=== PATIENT | female | born 1945 | race Caucasian/White ===

== ENCOUNTER 2017-11-25 20:23 | Inpatient (IN) | payer MEDICARE, MEDICAID ==
--- NOTE | 2017-11-25 20:55 | ED Physician Chart ---
ED Chief Complaint/HPI - Patient Information Date Seen:: 11/25/17 Time Seen:: 22:30 Chief Complaint:: Increased agitation History of Present Illness:: 72 yo female was brought from SNF to ER for increased agitation and aggressiveness towards nursing staff. Patient had intermittent cough in the ER ED Review of Systems - Review of Systems General/Constitutional: No fever Skin: No bruising Head: No headache Eyes: No loss of vision ENT: No nasal drainage Neck: No neck pain Cardio Vascular: No chest pain Pulmonary: No SOB GI: No nausea Musculoskeletal: No bone or joint pain Psychiatric: Prior psych history ED Past Medical History - Past Medical History Past Medical History: HTN, Asthma/COPD, Thyroid disorder, Dementia, Other (COPD , HYPERLIPIDEMIA, UTI, OSTEOARTHRITIS) Social History: Non Smoker, No Alcohol, No Drug Use Family Medical History - Family Member Mother History Unknown: Yes ED Physical Exam - Physical Examination General/Constitutional: Awake Head: Atraumatic Eyes: PERRL Skin: No ecchymosis ENMT: Nasal exam nl Neck: No nuchal rigidity Other Respiratory comments:: mild crackles Cardio Vascular: RRR, No murmur, gallop, rubs, NL S1 S2 GI: No tenderness/rebounding/guarding Extremities: normal strength in all extremities Neuro/Psych: No focal deficits ED Assessment - Assessment General Assessment: Psychosis Assessment/Comments:: CBC, CMP CXR, EKG (patient refused) DuoNeb (refused) Patient was cleared for genropsych admit ED Septic Shock - . Is Septic Shock (SBP<90, OR Lactate>4 mmol\L) present?: No ED Reassessment (Disposition) - Reassessment Reassessment Condition:: Unchanged - Patient Disposition Discharge/Transfer:: Acute Care w/in this hosp ED Discharge Plan - Patient Disposition Admit/Discharge/Transfer: Other Care w/in this hosp Condition at Disposition: Guarded
[2017-11-25 21:10] LABS: % EOSINOPHILS 0.9 % (0.0-5.0); % LYMPHOCYTES 8.2 % (20.0-50.0); % MONOCYTES 10.8 % (2.0-10.0); % NEUTROPHILS 80.1 % (40.0-80.0); EOSINOPHILE ABSOLUTE 0.1 Th/cmm (0.1-0.4); HEMATOCRIT 36.4 % (41.0-60); HEMOGLOBIN 12.2 gm/dL (12-16); LYMPHOCYTE ABSOLUTE 0.7 Th/cmm (1.5-3.0); MEAN CELL VOLUME 86.2 fl (81-100); MEAN CORPUSCULAR HEMOGLOBIN 28.8 pg (27.0-31.0); MEAN CORPUSCULAR HGB CONC 33.4 pg (28.0-36.0); NEUTROPHILE ABSOLUTE 7.3 Th/cmm (1.8-8.0); PLATELET COUNT 220 Th/cmm (150-400); RED BLOOD COUNT 4.23 Mil/cmm (3.80-5.20); RED CELL DISTRIBUTION WIDTH 14.9 % (11.5-20.0); WHITE BLOOD COUNT 9.1 Th/cmm (4.8-10.8)
[2017-11-25 21:26] LABS: ALB/GLOB RATIO 1.4 (1.0-1.8); ALBUMIN 3.6 gm/dL (3.7-5.3); ALKALINE PHOSPHATASE 56 U/L (34-104); ANION GAP 7.1 (7.0-16.0); BILIRUBIN,TOTAL 0.2 mg/dL (0.3-1.0); BUN - UREA NITROGEN 27 mg/dL (7-25); CALCIUM SERUM 9.1 mg/dL (8.6-10.3); CARBON DIOXIDE 34.2 mEq/L (21.0-31.0); CHLORIDE 99 mEq/L (98-107); GLUCOSE 112 mg/dL (70-105); POTASSIUM SERUM 4.3 mEq/L (3.5-5.1); SGOT 13 U/L (13-39); SGPT/ALT 7 U/L (7-52); SODIUM SERUM 136 mEq/L (136-145); TOTAL PROTEIN,SERUM 6.1 gm/dL (6.0-8.3)
[2017-11-25] MEDS ORDERED: Albuterol/Ipratropium Neb 3 ML AERS HHN ONE (22:31)
[2017-11-25] MEDS ORDERED: Haloperidol Lactate 5 mg/mL 1mL Vial IM STA (23:05)
[2017-11-25] MEDS ORDERED: Haloperidol Lactate 5 mg/mL 1mL Vial ONE (23:08)
[2017-11-26 01:39] VITALS: BP 133/71
[2017-11-26] MEDS ORDERED: Maalox 30 mL Cup PO PRN (01:39)
[2017-11-26] MEDS ORDERED: Magnesium Hydroxide (MOM) 30 mL UDC PO PRN (01:39)
[2017-11-26] MEDS ORDERED: Hydrocodone/APAP 5mg/325mg Tab PO PRN (01:56)
[2017-11-26] MEDS: Levothyroxine 0.05 Mg Tab PO SCH (06:39)
[2017-11-26] MEDS ORDERED: Non-Formulary Item 1 EA (Cranberry Fruit Concentrate [Cranberry] 450 MG) PO SCH (09:00)
[2017-11-26] MEDS: Dextromethorphan/Quinidine 20mg/10mg Cap PO SCH ×2 (10:00→17:58)
[2017-11-26] MEDS: Multivitamin w/ Minerals Tab PO SCH (10:00)
[2017-11-26] MEDS: Lactobacillus Rhamnosus GG 15 Billion CFU CAP.SPRINK PO SCH ×2 (10:00→17:57)
--- NOTE | 2017-11-26 10:28 | Psychosocial Evaluation ---
DATE OF SERVICE: 11/26/2017 IDENTIFYING DATA: The patient is a 72-year-old woman, resident of [facility]. Information obtained by directly interviewing the patient as well as reviewing the admission papers and they are reliable. JUSTIFICATION FOR HOSPITALIZATION: The patient is admitted here on a voluntary basis in view of her acute psychosis and agitation. CHIEF COMPLAINT: "I don't care." HISTORY OF PRESENT ILLNESS: This is one of multiple psychiatric hospitalizations for this patient who is being followed up by Dr. Little on an outpatient basis at [facility]. The patient has been on mirtazapine, Risperdal, and valproic acid. However, the patient is reported to have been very disruptive, striking out and cursing people and could not be contained at a lower level of care. The patient has been brought over here for stabilization, tried to interview the patient, but the patient is very angry, irritable, and cursing out. PAST PSYCHIATRIC HISTORY: Details are not known, but the patient is reported to have been hospitalized. MEDICAL HISTORY: Physical examination is requested and done by Dr. Walls. SUBSTANCE ABUSE HISTORY: None. PHYSICAL OR SEXUAL ABUSE HISTORY: None. LEGAL PROBLEMS: None at this time. STRENGTH AND ASSETS: The patient is motivated. MENTAL STATUS EXAMINATION: The patient is a 72-year-old woman, thin built, superficially cooperative. Eye contact is poor. Mood is irritable. Affect is constricted. The patient is cursing out at this time. Insight and judgment at this time are noted very much impaired. Impulse control is noted to be poor. The patient's short and long-term memory is poor. The patient, however, is fully aware that she is in the hospital. The patient's behavior is a clear danger to self and others. DIAGNOSTIC IMPRESSION: AXIS I: Schizoaffective disorder. AXIS II: None. AXIS III: None. IMMEDIATE TREATMENT PLAN: The patient is going to be observed on the inpatient unit, provided with supportive psychotherapy. The patient is going to be closely monitored. Encouraged to participate in groups and verbalize the concerns. When stabilized, the patient is going to be discharged to [facility], to be followed up on an outpatient basis. ESTIMATED LENGTH OF STAY: 5 to 7 days. DISCHARGE CRITERIA: When patient is no longer a threat to self or others and be able to cope up with stress. [facility]# [id number]
--- NOTE | 2017-11-26 14:59 | Internal Medicine Prog Note ---
Internal Medicine Subjective - Subjective Service Date: 11/26/17 ([id number] [facility]) Internal Medicine Objective - Results Result Diagrams: 11/25/17 21:03 11/25/17 21:03 Recent Labs: Laboratory Last Values WBC 9.1 Th/cmm (4.8-10.8) 11/25/17 21:03 RBC 4.23 Mil/cmm (3.80-5.20) 11/25/17 21:03 Hgb 12.2 gm/dL (12-16) 11/25/17 21:03 Hct 36.4 % (41.0-60) L 11/25/17 21:03 MCV 86.2 fl (81-100) 11/25/17 21:03 MCH 28.8 pg (27.0-31.0) 11/25/17 21:03 MCHC Differential 33.4 pg (28.0-36.0) 11/25/17 21:03 RDW 14.9 % (11.5-20.0) 11/25/17 21:03 Plt Count 220 Th/cmm (150-400) 11/25/17 21:03 MPV 8.0 fl 11/25/17 21:03 Neutrophils % 80.1 % (40.0-80.0) H 11/25/17 21:03 Lymphocytes % 8.2 % (20.0-50.0) L 11/25/17 21:03 Monocytes % 10.8 % (2.0-10.0) H 11/25/17 21:03 Eosinophils % 0.9 % (0.0-5.0) 11/25/17 21:03 Basophils % 0.0 % (0.0-2.0) 11/25/17 21:03 Sodium 136 mEq/L (136-145) 11/25/17 21:03 Potassium 4.3 mEq/L (3.5-5.1) 11/25/17 21:03 Chloride 99 mEq/L (98-107) 11/25/17 21:03 Carbon Dioxide 34.2 mEq/L (21.0-31.0) H 11/25/17 21:03 Anion Gap 7.1 (7.0-16.0) 11/25/17 21:03 BUN 27 mg/dL (7-25) H 11/25/17 21:03 Creatinine 1.0 mg/dL (0.6-1.2) 11/25/17 21:03 Est GFR ( Amer) TNP 11/25/17 21:03 Est GFR (Non-Af Amer) TNP 11/25/17 21:03 BUN/Creatinine Ratio 27.0 11/25/17 21:03 Glucose 112 mg/dL (70-105) H 11/25/17 21:03 Calcium 9.1 mg/dL (8.6-10.3) 11/25/17 21:03 Total Bilirubin 0.2 mg/dL (0.3-1.0) L 11/25/17 21:03 AST 13 U/L (13-39) 11/25/17 21:03 ALT 7 U/L (7-52) 11/25/17 21:03 Alkaline Phosphatase 56 U/L (34-104) 11/25/17 21:03 Total Protein 6.1 gm/dL (6.0-8.3) 11/25/17 21:03 Albumin 3.6 gm/dL (3.7-5.3) L 11/25/17 21:03 Globulin 2.5 gm/dL 11/25/17 21:03 Albumin/Globulin Ratio 1.4 (1.0-1.8) 11/25/17 21:03 - Physical Exam Vitals and I&O: Vital Signs Temp 98.4 F 11/26/17 01:38 Pulse 87 11/26/17 01:38 Resp 18 11/26/17 01:38 BP 133/71 11/26/17 01:39 Pulse Ox 98 11/26/17 01:05 Intake & Output 11/25/17 11/26/17 11/26/17 18:59 06:59 18:59 Other: # Voids 2 Stool Characteristics Soft Active Medications: Current Medications Acetaminophen (Tylenol) 650 mg PO Q6H PRN PRN Reason: Mild Pain/Headache/T above 101 Stop: 01/25/18 01:38 Acetaminophen/Hydrocodone Bitart ([place] 5mg/325mg) 1 tab PO Q6H PRN PRN Reason: Pain (Moderate) Stop: 01/25/18 01:55 Al Hydrox/Mg Hydrox/Simethicone (Maalox) 30 ml PO Q6H PRN PRN Reason: Dyspepsia Stop: 01/25/18 01:38 Dextromethorphan/Quinidine (Nuedexta 20mg-10mg) 1 cap PO BID [facility] Stop: 01/25/18 08:59 Last Admin: 11/26/17 10:00 Dose: Not Given Divalproex Sodium (Depakote Dr) 250 mg PO BID [facility] PRN Reason: Protocol Stop: 01/25/18 08:59 Last Admin: 11/26/17 10:00 Dose: Not Given Lactobacillus Rhamnosus (Culturelle 15b) 1 each PO BID [facility] Stop: 01/25/18 08:59 Last Admin: 11/26/17 10:00 Dose: Not Given Levothyroxine Sodium (Synthroid) 0.05 mg PO QDAC [facility] Stop: 01/25/18 07:29 Last Admin: 11/26/17 06:39 Dose: Not Given Lorazepam (Ativan) 1 mg PO Q6H PRN; Protocol PRN Reason: Anxiety/Agitation Stop: 01/25/18 01:38 Losartan Potassium (Cozaar) 50 mg PO DAILY [facility] Stop: 01/25/18 08:59 Last Admin: 11/26/17 10:00 Dose: Not Given Magnesium Hydroxide (Milk Of Magnesia) 30 ml PO HS PRN PRN Reason: Constipation Stop: 01/25/18 01:38 Mirtazapine (Remeron) 15 mg PO HS [facility] Stop: 01/25/18 02:59 Last Admin: 11/26/17 03:30 Dose: Not Given Risperidone (Risperdal) 1 mg PO DAILY JESS PRN Reason: Protocol Stop: 01/25/18 08:59 Last Admin: 11/26/17 10:00 Dose: Not Given Zolpidem Tartrate (Ambien) 5 mg PO HS PRN PRN Reason: Insomnia Stop: 01/25/18 01:38 - Procedures Procedures: Procedures Procedure Code Date OTHER GROUP THERAPY 94.44 11/06/10
--- NOTE | 2017-11-26 18:26 | History & Physical ---
ADMIT DATE: 11/26/2017 DICTATED FOR: Dr. Cornelius Walls CHIEF COMPLAINT: Agitation, depression. HISTORY OF PRESENT ILLNESS: This is a 72-year-old female who is a [facility] resident who is brought here to [place], who was admitted to the Geropsych Unit for agitation towards staff. PAST MEDICAL HISTORY: UTI, psychosis, hypothyroid, hypertension. PAST SURGICAL HISTORY: Unknown. ALLERGIES: Chlorpromazine and penicillins. SOCIAL HISTORY: The patient is a [facility] resident, requiring 24-hour nursing care. FAMILY HISTORY: Noncontributory. REVIEW OF SYSTEMS: Unable to obtain, the patient is confused. PHYSICAL EXAMINATION: GENERAL: The patient is well developed, well nourished, no acute distress. VITAL SIGNS: Temperature 99.4, heart rate 87, blood pressure 133/71, respiration 18, O2 98%. HEENT: Head; normocephalic, atraumatic. NECK: Supple. No mass. LUNGS: Clear bilaterally. ABDOMEN: Soft, nontender. LABORATORY DATA: WBC 9.1, H and H 12.2 and 36.4, platelet of 220. Sodium 136, potassium 4.3, chloride 99, BUN 27, creatinine 1.0. ASSESSMENT: Hypertension, hypothyroidism, psychosis. PLAN: Continue patient's current medications from the [facility]. We will adjust the patient's blood pressure medications as needed. We will continue to follow this patient. JOB# [id number]
[2017-11-27] MEDS: Levothyroxine 0.05 Mg Tab PO SCH (07:00)
[2017-11-27] MEDS: Lactobacillus Rhamnosus GG 15 Billion CFU CAP.SPRINK PO SCH ×2 (11:50→17:03)
[2017-11-27] MEDS: Dextromethorphan/Quinidine 20mg/10mg Cap PO SCH ×2 (11:50→17:03)
[2017-11-27] MEDS: Multivitamin w/ Minerals Tab PO SCH (11:53)
--- NOTE | 2017-11-27 12:15 | Internal Medicine Prog Note ---
Internal Medicine Subjective - Subjective Service Date: 11/27/17 Internal Medicine Objective - Results Result Diagrams: 11/25/17 21:03 11/25/17 21:03 Recent Labs: Laboratory Last Values WBC 9.1 Th/cmm (4.8-10.8) 11/25/17 21:03 RBC 4.23 Mil/cmm (3.80-5.20) 11/25/17 21:03 Hgb 12.2 gm/dL (12-16) 11/25/17 21:03 Hct 36.4 % (41.0-60) L 11/25/17 21:03 MCV 86.2 fl (81-100) 11/25/17 21:03 MCH 28.8 pg (27.0-31.0) 11/25/17 21:03 MCHC Differential 33.4 pg (28.0-36.0) 11/25/17 21:03 RDW 14.9 % (11.5-20.0) 11/25/17 21:03 Plt Count 220 Th/cmm (150-400) 11/25/17 21:03 MPV 8.0 fl 11/25/17 21:03 Neutrophils % 80.1 % (40.0-80.0) H 11/25/17 21:03 Lymphocytes % 8.2 % (20.0-50.0) L 11/25/17 21:03 Monocytes % 10.8 % (2.0-10.0) H 11/25/17 21:03 Eosinophils % 0.9 % (0.0-5.0) 11/25/17 21:03 Basophils % 0.0 % (0.0-2.0) 11/25/17 21:03 Sodium 136 mEq/L (136-145) 11/25/17 21:03 Potassium 4.3 mEq/L (3.5-5.1) 11/25/17 21:03 Chloride 99 mEq/L (98-107) 11/25/17 21:03 Carbon Dioxide 34.2 mEq/L (21.0-31.0) H 11/25/17 21:03 Anion Gap 7.1 (7.0-16.0) 11/25/17 21:03 BUN 27 mg/dL (7-25) H 11/25/17 21:03 Creatinine 1.0 mg/dL (0.6-1.2) 11/25/17 21:03 Est GFR ( Amer) TNP 11/25/17 21:03 Est GFR (Non-Af Amer) TNP 11/25/17 21:03 BUN/Creatinine Ratio 27.0 11/25/17 21:03 Glucose 112 mg/dL (70-105) H 11/25/17 21:03 Calcium 9.1 mg/dL (8.6-10.3) 11/25/17 21:03 Total Bilirubin 0.2 mg/dL (0.3-1.0) L 11/25/17 21:03 AST 13 U/L (13-39) 11/25/17 21:03 ALT 7 U/L (7-52) 11/25/17 21:03 Alkaline Phosphatase 56 U/L (34-104) 11/25/17 21:03 Total Protein 6.1 gm/dL (6.0-8.3) 11/25/17 21:03 Albumin 3.6 gm/dL (3.7-5.3) L 11/25/17 21:03 Globulin 2.5 gm/dL 11/25/17 21:03 Albumin/Globulin Ratio 1.4 (1.0-1.8) 11/25/17 21:03 - Physical Exam Vitals and I&O: Vital Signs Temp 99.0 F 11/26/17 15:02 Pulse 81 11/26/17 15:02 Resp 20 11/26/17 15:02 BP 144/83 11/26/17 15:02 Pulse Ox 95 11/26/17 15:02 Intake & Output 11/26/17 11/27/17 11/27/17 18:59 06:59 18:59 Intake Total 480 120 Balance 480 120 Intake: Oral 480 120 Other: # Voids 2 3 Stool Characteristics Soft Active Medications: Current Medications Acetaminophen (Tylenol) 650 mg PO Q6H PRN PRN Reason: Mild Pain/Headache/T above 101 Stop: 01/25/18 01:38 Acetaminophen/Hydrocodone Bitart ([place] 5mg/325mg) 1 tab PO Q6H PRN PRN Reason: Pain (Moderate) Stop: 01/25/18 01:55 Al Hydrox/Mg Hydrox/Simethicone (Maalox) 30 ml PO Q6H PRN PRN Reason: Dyspepsia Stop: 01/25/18 01:38 Dextromethorphan/Quinidine (Nuedexta 20mg-10mg) 1 cap PO BID [facility] Stop: 01/25/18 08:59 Last Admin: 11/27/17 11:50 Dose: Not Given Divalproex Sodium (Depakote Dr) 250 mg PO BID [facility] PRN Reason: Protocol Stop: 01/25/18 08:59 Last Admin: 11/27/17 11:50 Dose: Not Given Lactobacillus Rhamnosus (Culturelle 15b) 1 each PO BID [facility] Stop: 01/25/18 08:59 Last Admin: 11/27/17 11:50 Dose: Not Given Levothyroxine Sodium (Synthroid) 0.05 mg PO QDAC [facility] Stop: 01/25/18 07:29 Last Admin: 11/27/17 07:00 Dose: 0.05 mg Lorazepam (Ativan) 1 mg PO Q6H PRN; Protocol PRN Reason: Anxiety/Agitation Stop: 01/25/18 01:38 Losartan Potassium (Cozaar) 50 mg PO DAILY [facility] Stop: 01/25/18 08:59 Last Admin: 11/27/17 11:56 Dose: Not Given Magnesium Hydroxide (Milk Of Magnesia) 30 ml PO HS PRN PRN Reason: Constipation Stop: 01/25/18 01:38 Mirtazapine (Remeron) 15 mg PO HS [facility] Stop: 01/25/18 02:59 Last Admin: 11/26/17 21:28 Dose: 15 mg Risperidone (Risperdal) 1 mg PO DAILY [facility] PRN Reason: Protocol Stop: 01/25/18 08:59 Last Admin: 11/27/17 11:53 Dose: Not Given Zolpidem Tartrate (Ambien) 5 mg PO HS PRN PRN Reason: Insomnia Stop: 01/25/18 01:38 - Procedures Procedures: Procedures Procedure Code Date OTHER GROUP THERAPY 94.44 11/06/10 Internal Medicine Assmt/Plan - Assessment Assessment: htn hypothyroidism psychosis - Plan Plan: monitor bp , will adjust bp meds accordingly as needed fall precautions continue current orders
--- NOTE | 2017-11-27 21:40 | Progress Notes ---
DATE: 11/27/2017 SUBJECTIVE: Staff was spoken to. The patient is interviewed. Mood is noted to be irritable. Affect is constricted. The patient's insight and judgment are noted to be still impaired. Impulse control is noted to be poor. The patient is very agitated and sarcastic. The patient has no insight into her illness. The patient is currently on valproic acid 250 mg twice a day and Risperdal 1 mg daily. The patient has been able to tolerate the medication. ASSESSMENT: The patient is still impulsive. PLAN: To continue the patient with the supportive therapy, I encouraged the patient to verbalize the concerns rather than to act out. Please note that the patient is not ready to be discharged to a lower level of care yet. JOB# [id number]
[2017-11-28] MEDS: Levothyroxine 0.05 Mg Tab PO SCH (06:32)
[2017-11-28] MEDS: Lactobacillus Rhamnosus GG 15 Billion CFU CAP.SPRINK PO SCH ×2 (11:52→17:26)
[2017-11-28] MEDS: Multivitamin w/ Minerals Tab PO SCH (11:53)
[2017-11-28] MEDS: Dextromethorphan/Quinidine 20mg/10mg Cap PO SCH ×2 (12:30→17:26)
--- NOTE | 2017-11-28 15:03 | Internal Medicine Prog Note ---
Internal Medicine Subjective - Subjective Patient seen and examined:: with staff, chart reviewed Patient is:: awake, verbal, non-interactive Per staff patient has:: no adverse event, no episodes of fall, poor appetite, noncompliant, tolerating meds Internal Medicine Objective - Results Result Diagrams: 11/25/17 21:03 11/25/17 21:03 Recent Labs: Laboratory Last Values WBC 9.1 Th/cmm (4.8-10.8) 11/25/17 21:03 RBC 4.23 Mil/cmm (3.80-5.20) 11/25/17 21:03 Hgb 12.2 gm/dL (12-16) 11/25/17 21:03 Hct 36.4 % (41.0-60) L 11/25/17 21:03 MCV 86.2 fl (81-100) 11/25/17 21:03 MCH 28.8 pg (27.0-31.0) 11/25/17 21:03 MCHC Differential 33.4 pg (28.0-36.0) 11/25/17 21:03 RDW 14.9 % (11.5-20.0) 11/25/17 21:03 Plt Count 220 Th/cmm (150-400) 11/25/17 21:03 MPV 8.0 fl 11/25/17 21:03 Neutrophils % 80.1 % (40.0-80.0) H 11/25/17 21:03 Lymphocytes % 8.2 % (20.0-50.0) L 11/25/17 21: Monocytes % 10.8 % (2.0-10.0) H 11/25/17 21:03 Eosinophils % 0.9 % (0.0-5.0) 11/25/17 21:03 Basophils % 0.0 % (0.0-2.0) 11/25/17 21:03 Sodium 136 mEq/L (136-145) 11/25/17 21:03 Potassium 4.3 mEq/L (3.5-5.1) 11/25/17 21:03 Chloride 99 mEq/L (98-107) 11/25/17 21:03 Carbon Dioxide 34.2 mEq/L (21.0-31.0) H 11/25/17 21:03 Anion Gap 7.1 (7.0-16.0) 11/25/17 21:03 BUN 27 mg/dL (7-25) H 11/25/17 21:03 Creatinine 1.0 mg/dL (0.6-1.2) 11/25/17 21:03 Est GFR ( Amer) TNP 11/25/17 21:03 Est GFR (Non-Af Amer) TNP 11/25/17 21:03 BUN/Creatinine Ratio 27.0 11/25/17 21:03 Glucose 112 mg/dL (70-105) H 11/25/17 21:03 Calcium 9.1 mg/dL (8.6-10.3) 11/25/17 21:03 Total Bilirubin 0.2 mg/dL (0.3-1.0) L 11/25/17 21:03 AST 13 U/L (13-39) 11/25/17 21:03 ALT 7 U/L (7-52) 11/25/17 21:03 Alkaline Phosphatase 56 U/L (34-104) 11/25/17 21:03 Total Protein 6.1 gm/dL (6.0-8.3) 11/25/17 21:03 Albumin 3.6 gm/dL (3.7-5.3) L 11/25/17 21:03 Globulin 2.5 gm/dL 11/25/17 21:03 Albumin/Globulin Ratio 1.4 (1.0-1.8) 11/25/17 21:03 - Physical Exam Vitals and I&O: Vital Signs Temp 97.2 F 11/27/17 14:00 Pulse 68 11/28/17 11:54 Resp 20 11/27/17 14:00 BP 118/62 11/28/17 11:54 Pulse Ox 97 11/27/17 14:00 Intake & Output 11/27/17 11/28/17 11/28/17 18:59 06:59 18:59 Intake Total 480 Balance 480 Intake: Oral 480 Other: # Voids 3 Active Medications: Current Medications Acetaminophen (Tylenol) 650 mg PO Q6H PRN PRN Reason: Mild Pain/Headache/T above 101 Stop: 01/25/18 01:38 Acetaminophen/Hydrocodone Bitart ([place] 5mg/325mg) 1 tab PO Q6H PRN PRN Reason: Pain (Moderate) Stop: 01/25/18 01:55 Al Hydrox/Mg Hydrox/Simethicone (Maalox) 30 ml PO Q6H PRN PRN Reason: Dyspepsia Stop: 01/25/18 01:38 Dextromethorphan/Quinidine (Nuedexta 20mg-10mg) 1 cap PO BID [facility] Stop: 01/25/18 08:59 Last Admin: 11/27/17 17:03 Dose: Not Given Divalproex Sodium (Depakote Dr) 250 mg PO BID [facility] PRN Reason: Protocol Stop: 01/25/18 08:59 Last Admin: 11/28/17 11:54 Dose: Not Given Lactobacillus Rhamnosus (Culturelle 15b) 1 each PO BID [facility] Stop: 01/25/18 08:59 Last Admin: 11/28/17 11:52 Dose: Not Given Levothyroxine Sodium (Synthroid) 0.05 mg PO QDAC [facility] Stop: 01/25/18 07:29 Last Admin: 11/28/17 06:32 Dose: Not Given Lorazepam (Ativan) 1 mg PO Q6H PRN; Protocol PRN Reason: Anxiety/Agitation Stop: 01/25/18 01:38 Losartan Potassium (Cozaar) 50 mg PO DAILY [facility] Stop: 01/25/18 08:59 Last Admin: 11/28/17 11:54 Dose: Not Given Magnesium Hydroxide (Milk Of Magnesia) 30 ml PO HS PRN PRN Reason: Constipation Stop: 01/25/18 01:38 Mirtazapine (Remeron) 15 mg PO HS [facility] Stop: 01/25/18 02:59 Last Admin: 11/27/17 20:35 Dose: Not Given Risperidone (Risperdal) 1 mg PO DAILY [facility] PRN Reason: Protocol Stop: 01/25/18 08:59 Last Admin: 11/27/17 11:53 Dose: Not Given Zolpidem Tartrate (Ambien) 5 mg PO HS PRN PRN Reason: Insomnia Stop: 01/25/18 01:38 General: demented HEENT: NC/AT, PERRLA, EOMI Neck: Supple, No JVD, No LAD Lungs: CTAB Cardiovascular: RRR, Normal S1, Normal S2 Abdomen: soft, non-tender, thin Extremities: excoriation - Procedures Procedures: Procedures Procedure Code Date OTHER GROUP THERAPY 94.44 11/06/10 Internal Medicine Assmt/Plan - Assessment Assessment: - Assessment Assessment: htn hypothyroidism psychosis - Plan Plan: monitor bp , will adjust bp meds accordingly as needed fall precautions continue current orders - Plan Plan: cpm labs noted
--- NOTE | 2017-11-28 15:54 | Progress Notes ---
DATE: 11/28/2017 SUBJECTIVE: Staff was spoken to. The patient is interviewed. Mood is noted to be irritable. Affect is constricted. The patient is still having mood swings. Insight and judgment are very much impaired. Impulse control is noted to be poor. The patient is currently on Depakote and Risperdal and is able to tolerate the medications. No side effects to the medications are noted. ASSESSMENT: The patient is still impulsive. PLAN: To continue the patient with the current medications. I encouraged the patient to verbalize the concerns rather than to act out. JOB# [id number]
[2017-11-29] MEDS: Levothyroxine 0.05 Mg Tab PO SCH (06:44)
[2017-11-29] MEDS: Dextromethorphan/Quinidine 20mg/10mg Cap PO SCH ×2 (09:02→17:27)
[2017-11-29] MEDS: Multivitamin w/ Minerals Tab PO SCH ×2 (09:02→09:06)
[2017-11-29] MEDS: Lactobacillus Rhamnosus GG 15 Billion CFU CAP.SPRINK PO SCH ×3 (09:02→17:27)
--- NOTE | 2017-11-29 15:03 | Internal Medicine Prog Note ---
Internal Medicine Subjective - Subjective Patient seen and examined:: with staff, chart reviewed Patient is:: awake, verbal, non-interactive Per staff patient has:: no adverse event, no episodes of fall, poor appetite, noncompliant, tolerating meds Internal Medicine Objective - Results Result Diagrams: 11/25/17 21:03 11/25/17 21:03 Recent Labs: Laboratory Last Values WBC 9.1 Th/cmm (4.8-10.8) 11/25/17 21:03 RBC 4.23 Mil/cmm (3.80-5.20) 11/25/17 21:03 Hgb 12.2 gm/dL (12-16) 11/25/17 21:03 Hct 36.4 % (41.0-60) L 11/25/17 21:03 MCV 86.2 fl (81-100) 11/25/17 21:03 MCH 28.8 pg (27.0-31.0) 11/25/17 21:03 MCHC Differential 33.4 pg (28.0-36.0) 11/25/17 21:03 RDW 14.9 % (11.5-20.0) 11/25/17 21:03 Plt Count 220 Th/cmm (150-400) 11/25/17 21:03 MPV 8.0 fl 11/25/17 21:03 Neutrophils % 80.1 % (40.0-80.0) H 11/25/17 21:03 Lymphocytes % 8.2 % (20.0-50.0) L 11/25/17 21: Monocytes % 10.8 % (2.0-10.0) H 11/25/17 21:03 Eosinophils % 0.9 % (0.0-5.0) 11/25/17 21:03 Basophils % 0.0 % (0.0-2.0) 11/25/17 21:03 Sodium 136 mEq/L (136-145) 11/25/17 21:03 Potassium 4.3 mEq/L (3.5-5.1) 11/25/17 21:03 Chloride 99 mEq/L (98-107) 11/25/17 21:03 Carbon Dioxide 34.2 mEq/L (21.0-31.0) H 11/25/17 21:03 Anion Gap 7.1 (7.0-16.0) 11/25/17 21:03 BUN 27 mg/dL (7-25) H 11/25/17 21:03 Creatinine 1.0 mg/dL (0.6-1.2) 11/25/17 21:03 Est GFR ( Amer) TNP 11/25/17 21:03 Est GFR (Non-Af Amer) TNP 11/25/17 21:03 BUN/Creatinine Ratio 27.0 11/25/17 21:03 Glucose 112 mg/dL (70-105) H 11/25/17 21:03 Calcium 9.1 mg/dL (8.6-10.3) 11/25/17 21:03 Total Bilirubin 0.2 mg/dL (0.3-1.0) L 11/25/17 21:03 AST 13 U/L (13-39) 11/25/17 21:03 ALT 7 U/L (7-52) 11/25/17 21:03 Alkaline Phosphatase 56 U/L (34-104) 11/25/17 21:03 Total Protein 6.1 gm/dL (6.0-8.3) 11/25/17 21:03 Albumin 3.6 gm/dL (3.7-5.3) L 11/25/17 21:03 Globulin 2.5 gm/dL 11/25/17 21:03 Albumin/Globulin Ratio 1.4 (1.0-1.8) 11/25/17 21:03 - Physical Exam Vitals and I&O: Vital Signs Temp 97.2 F 11/27/17 14:00 Pulse 68 11/28/17 11:54 Resp 20 11/27/17 14:00 BP 118/62 11/28/17 11:54 Pulse Ox 97 11/27/17 14:00 Intake & Output 11/28/17 11/29/17 11/29/17 18:59 06:59 18:59 Intake Total 1800 120 Balance 1800 120 Intake: Oral 1800 120 Other: # Voids 4 3 # Bowel Movements 0 Stool Characteristics Soft Formed Brown Active Medications: Current Medications Acetaminophen (Tylenol) 650 mg PO Q6H PRN PRN Reason: Mild Pain/Headache/T above 101 Stop: 01/25/18 01:38 Acetaminophen/Hydrocodone Bitart ([place] 5mg/325mg) 1 tab PO Q6H PRN PRN Reason: Pain (Moderate) Stop: 01/25/18 01:55 Al Hydrox/Mg Hydrox/Simethicone (Maalox) 30 ml PO Q6H PRN PRN Reason: Dyspepsia Stop: 01/25/18 01:38 Dextromethorphan/Quinidine (Nuedexta 20mg-10mg) 1 cap PO BID [facility] Stop: 01/25/18 08:59 Last Admin: 11/29/17 09:02 Dose: 1 cap Divalproex Sodium (Depakote Dr) 250 mg PO BID [facility] PRN Reason: Protocol Stop: 01/25/18 08:59 Last Admin: 11/29/17 09:02 Dose: 250 mg Lactobacillus Rhamnosus (Culturelle 15b) 1 each PO BID [facility] Stop: 01/25/18 08:59 Last Admin: 11/29/17 09:06 Dose: Not Given Levothyroxine Sodium (Synthroid) 0.05 mg PO QDAC JESS Stop: 01/25/18 07:29 Last Admin: 11/29/17 06:44 Dose: Not Given Lorazepam (Ativan) 1 mg PO Q6H PRN; Protocol PRN Reason: Anxiety/Agitation Stop: 01/25/18 01:38 Last Admin: 11/28/17 12:30 Dose: 1 mg Losartan Potassium (Cozaar) 50 mg PO DAILY [facility] Stop: 01/25/18 08:59 Last Admin: 11/29/17 09:06 Dose: Not Given Magnesium Hydroxide (Milk Of Magnesia) 30 ml PO HS PRN PRN Reason: Constipation Stop: 01/25/18 01:38 Mirtazapine (Remeron) 15 mg PO HS JESS Stop: 01/25/18 02:59 Last Admin: 11/28/17 20:45 Dose: Not Given Risperidone (Risperdal) 1 mg PO BID JESS PRN Reason: Protocol Stop: 01/28/18 16:59 Zolpidem Tartrate (Ambien) 5 mg PO HS PRN PRN Reason: Insomnia Stop: 01/25/18 01:38 General: demented HEENT: NC/AT, PERRLA, EOMI Neck: Supple, No JVD, No LAD Lungs: CTAB Cardiovascular: RRR, Normal S1, Normal S2 Abdomen: soft, non-tender, thin Extremities: excoriation - Procedures Procedures: Procedures Procedure Code Date OTHER GROUP THERAPY 94.44 11/06/10 Internal Medicine Assmt/Plan - Assessment Assessment: - Assessment Assessment: htn hypothyroidism psychosis - Plan Plan: monitor bp , will adjust bp meds accordingly as needed fall precautions continue current orders - Plan Plan: cpm labs noted
--- NOTE | 2017-11-29 23:08 | Progress Notes ---
DATE: 11/29/2017 SUBJECTIVE: Staff was spoken to. The patient is interviewed. Mood is noted to be irritable. Affect is constricted. Coping skills are noted to be still poor. No side effects to the medications are noted. The patient has been having difficult time to cope with the stress, continues to be very irritable and angry and paranoid. No side effects to the medications are noted at this time. The patient has been having difficult time to cope with the stress. ASSESSMENT: The patient is still psychotic. PLAN: To continue the patient with supportive therapy and I encouraged the patient to verbalize the concerns rather than to act out. PSYCHIATRIC# [id number]
[2017-11-30] MEDS: Levothyroxine 0.05 Mg Tab PO SCH (06:40)
[2017-11-30] MEDS: Lactobacillus Rhamnosus GG 15 Billion CFU CAP.SPRINK PO SCH ×3 (10:56→17:13)
[2017-11-30] MEDS: Dextromethorphan/Quinidine 20mg/10mg Cap PO SCH ×2 (10:56→16:53)
[2017-11-30] MEDS: Multivitamin w/ Minerals Tab PO SCH (10:57)
--- NOTE | 2017-11-30 13:25 | Progress Notes ---
DATE: 11/30/2017 SUBJECTIVE: Staff was spoken to. The patient is interviewed. Mood is noted to be irritable. Affect is constricted. Insight and judgment at this time are noted to be still impaired. Mood swings are still a problem. No side effects to medications are noted. The patient has been able to tolerate the Risperdal, which was increased to 1 mg twice a day. The patient is continued on the mirtazapine and valproic. ASSESSMENT: The patient is still impulsive and mood swings are a problem. PLAN: To continue the patient with the supportive therapy and followup. JOB# [id number]
--- NOTE | 2017-11-30 15:02 | Internal Medicine Prog Note ---
Internal Medicine Subjective - Subjective Patient seen and examined:: with staff, chart reviewed Patient is:: awake, verbal, non-interactive Per staff patient has:: no adverse event, no episodes of fall, poor appetite, noncompliant, tolerating meds Internal Medicine Objective - Results Result Diagrams: 11/25/17 21:03 11/25/17 21:03 Recent Labs: Laboratory Last Values WBC 9.1 Th/cmm (4.8-10.8) 11/25/17 21:03 RBC 4.23 Mil/cmm (3.80-5.20) 11/25/17 21:03 Hgb 12.2 gm/dL (12-16) 11/25/17 21:03 Hct 36.4 % (41.0-60) L 11/25/17 21:03 MCV 86.2 fl (81-100) 11/25/17 21:03 MCH 28.8 pg (27.0-31.0) 11/25/17 21:03 MCHC Differential 33.4 pg (28.0-36.0) 11/25/17 21:03 RDW 14.9 % (11.5-20.0) 11/25/17 21:03 Plt Count 220 Th/cmm (150-400) 11/25/17 21:03 MPV 8.0 fl 11/25/17 21:03 Neutrophils % 80.1 % (40.0-80.0) H 11/25/17 21:03 Lymphocytes % 8.2 % (20.0-50.0) L 11/25/17 21: Monocytes % 10.8 % (2.0-10.0) H 11/25/17 21:03 Eosinophils % 0.9 % (0.0-5.0) 11/25/17 21:03 Basophils % 0.0 % (0.0-2.0) 11/25/17 21:03 Sodium 136 mEq/L (136-145) 11/25/17 21:03 Potassium 4.3 mEq/L (3.5-5.1) 11/25/17 21:03 Chloride 99 mEq/L (98-107) 11/25/17 21:03 Carbon Dioxide 34.2 mEq/L (21.0-31.0) H 11/25/17 21:03 Anion Gap 7.1 (7.0-16.0) 11/25/17 21:03 BUN 27 mg/dL (7-25) H 11/25/17 21:03 Creatinine 1.0 mg/dL (0.6-1.2) 11/25/17 21:03 Est GFR ( Amer) TNP 11/25/17 21:03 Est GFR (Non-Af Amer) TNP 11/25/17 21:03 BUN/Creatinine Ratio 27.0 11/25/17 21:03 Glucose 112 mg/dL (70-105) H 11/25/17 21:03 Calcium 9.1 mg/dL (8.6-10.3) 11/25/17 21:03 Total Bilirubin 0.2 mg/dL (0.3-1.0) L 11/25/17 21:03 AST 13 U/L (13-39) 11/25/17 21:03 ALT 7 U/L (7-52) 11/25/17 21:03 Alkaline Phosphatase 56 U/L (34-104) 11/25/17 21:03 Total Protein 6.1 gm/dL (6.0-8.3) 11/25/17 21:03 Albumin 3.6 gm/dL (3.7-5.3) L 11/25/17 21:03 Globulin 2.5 gm/dL 11/25/17 21:03 Albumin/Globulin Ratio 1.4 (1.0-1.8) 11/25/17 21:03 - Physical Exam Vitals and I&O: Vital Signs Temp 97.2 F 11/27/17 14:00 Pulse 68 11/28/17 11:54 Resp 20 11/27/17 14:00 BP 118/62 11/28/17 11:54 Pulse Ox 97 11/27/17 14:00 Intake & Output 11/29/17 11/30/17 11/30/17 18:59 06:59 18:59 Intake Total 1200 120 Balance 1200 120 Intake: Oral 1200 120 Other: # Voids 3 3 Active Medications: Current Medications Acetaminophen (Tylenol) 650 mg PO Q6H PRN PRN Reason: Mild Pain/Headache/T above 101 Stop: 01/25/18 01:38 Acetaminophen/Hydrocodone Bitart ([place] 5mg/325mg) 1 tab PO Q6H PRN PRN Reason: Pain (Moderate) Stop: 01/25/18 01:55 Al Hydrox/Mg Hydrox/Simethicone (Maalox) 30 ml PO Q6H PRN PRN Reason: Dyspepsia Stop: 01/25/18 01:38 Dextromethorphan/Quinidine (Nuedexta 20mg-10mg) 1 cap PO BID [facility] Stop: 01/25/18 08:59 Last Admin: 11/30/17 10:56 Dose: Not Given Divalproex Sodium (Depakote Dr) 250 mg PO BID JESS PRN Reason: Protocol Stop: 01/25/18 08:59 Last Admin: 11/30/17 10:56 Dose: Not Given Lactobacillus Rhamnosus (Culturelle 15b) 1 each PO BID [facility] Stop: 01/25/18 08:59 Last Admin: 11/30/17 10:56 Dose: Not Given Levothyroxine Sodium (Synthroid) 0.05 mg PO QDAC [facility] Stop: 01/25/18 07:29 Last Admin: 11/30/17 06:40 Dose: Not Given Lorazepam (Ativan) 1 mg PO Q6H PRN; Protocol PRN Reason: Anxiety/Agitation Stop: 01/25/18 01:38 Last Admin: 11/28/17 12:30 Dose: 1 mg Losartan Potassium (Cozaar) 50 mg PO DAILY [facility] Stop: 01/25/18 08:59 Last Admin: 11/30/17 10:57 Dose: Not Given Magnesium Hydroxide (Milk Of Magnesia) 30 ml PO HS PRN PRN Reason: Constipation Stop: 01/25/18 01:38 Mirtazapine (Remeron) 15 mg PO HS [facility] Stop: 01/25/18 02:59 Last Admin: 11/29/17 20:42 Dose: Not Given Risperidone (Risperdal) 1 mg PO BID JESS PRN Reason: Protocol Stop: 01/28/18 16:59 Last Admin: 11/30/17 10:57 Dose: Not Given Zolpidem Tartrate (Ambien) 5 mg PO HS PRN PRN Reason: Insomnia Stop: 01/25/18 01:38 General: demented HEENT: NC/AT, PERRLA, EOMI Neck: Supple, No JVD, No LAD Lungs: CTAB Cardiovascular: RRR, Normal S1, Normal S2 Abdomen: soft, non-tender, thin Extremities: excoriation - Procedures Procedures: Procedures Procedure Code Date OTHER GROUP THERAPY 94.44 11/06/10 Internal Medicine Assmt/Plan - Assessment Assessment: - Assessment Assessment: htn hypothyroidism psychosis - Plan Plan: monitor bp , will adjust bp meds accordingly as needed fall precautions continue current orders - Plan Plan: cpm labs noted
[2017-12-01] MEDS: Levothyroxine 0.05 Mg Tab PO SCH (06:38)
[2017-12-01] MEDS: Multivitamin w/ Minerals Tab PO SCH (08:27)
[2017-12-01] MEDS: Dextromethorphan/Quinidine 20mg/10mg Cap PO SCH ×2 (08:28→16:53)
[2017-12-01] MEDS: Lactobacillus Rhamnosus GG 15 Billion CFU CAP.SPRINK PO SCH ×2 (08:29→16:53)
--- NOTE | 2017-12-01 11:07 | Internal Medicine Prog Note ---
Internal Medicine Subjective - Subjective Service Date: 12/01/17 Patient is:: awake, verbal, non-interactive Per staff patient has:: no adverse event, no episodes of fall, poor appetite, noncompliant, tolerating meds Internal Medicine Objective - Results Result Diagrams: 11/25/17 21:03 11/25/17 21:03 Recent Labs: Laboratory Last Values WBC 9.1 Th/cmm (4.8-10.8) 11/25/17 21:03 RBC 4.23 Mil/cmm (3.80-5.20) 11/25/17 21:03 Hgb 12.2 gm/dL (12-16) 11/25/17 21:03 Hct 36.4 % (41.0-60) L 11/25/17 21:03 MCV 86.2 fl (81-100) 11/25/17 21:03 MCH 28.8 pg (27.0-31.0) 11/25/17 21:03 MCHC Differential 33.4 pg (28.0-36.0) 11/25/17 21:03 RDW 14.9 % (11.5-20.0) 11/25/17 21:03 Plt Count 220 Th/cmm (150-400) 11/25/17 21:03 MPV 8.0 fl 11/25/17 21:03 Neutrophils % 80.1 % (40.0-80.0) H 11/25/17 21:03 Lymphocytes % 8.2 % (20.0-50.0) L 11/25/17 21:03 Monocytes % 10.8 % (2.0-10.0) H 11/25/17 21:03 Eosinophils % 0.9 % (0.0-5.0) 11/25/17 21:03 Basophils % 0.0 % (0.0-2.0) 11/25/17 21:03 Sodium 136 mEq/L (136-145) 11/25/17 21:03 Potassium 4.3 mEq/L (3.5-5.1) 11/25/17 21:03 Chloride 99 mEq/L (98-107) 11/25/17 21:03 Carbon Dioxide 34.2 mEq/L (21.0-31.0) H 11/25/17 21:03 Anion Gap 7.1 (7.0-16.0) 11/25/17 21:03 BUN 27 mg/dL (7-25) H 11/25/17 21:03 Creatinine 1.0 mg/dL (0.6-1.2) 11/25/17 21:03 Est GFR ( Amer) TNP 11/25/17 21:03 Est GFR (Non-Af Amer) TNP 11/25/17 21:03 BUN/Creatinine Ratio 27.0 11/25/17 21:03 Glucose 112 mg/dL (70-105) H 11/25/17 21:03 Calcium 9.1 mg/dL (8.6-10.3) 11/25/17 21:03 Total Bilirubin 0.2 mg/dL (0.3-1.0) L 11/25/17 21:03 AST 13 U/L (13-39) 11/25/17 21:03 ALT 7 U/L (7-52) 11/25/17 21:03 Alkaline Phosphatase 56 U/L (34-104) 11/25/17 21:03 Total Protein 6.1 gm/dL (6.0-8.3) 11/25/17 21:03 Albumin 3.6 gm/dL (3.7-5.3) L 11/25/17 21:03 Globulin 2.5 gm/dL 11/25/17 21:03 Albumin/Globulin Ratio 1.4 (1.0-1.8) 11/25/17 21:03 - Physical Exam Vitals and I&O: Vital Signs Temp 98.5 F 12/01/17 06:00 Pulse 74 12/01/17 08:28 Resp 19 12/01/17 06:00 BP 118/62 12/01/17 08:28 Pulse Ox 96 12/01/17 06:00 Intake & Output 11/30/17 12/01/17 12/01/17 18:59 06:59 18:59 Intake Total 880 300 Balance 880 300 Intake: Oral 880 300 Other: # Voids 3 1 # Bowel Movements 1 0 Active Medications: Current Medications Acetaminophen (Tylenol) 650 mg PO Q6H PRN PRN Reason: Mild Pain/Headache/T above 101 Stop: 01/25/18 01:38 Acetaminophen/Hydrocodone Bitart ([place] 5mg/325mg) 1 tab PO Q6H PRN PRN Reason: Pain (Moderate) Stop: 01/25/18 01:55 Al Hydrox/Mg Hydrox/Simethicone (Maalox) 30 ml PO Q6H PRN PRN Reason: Dyspepsia Stop: 01/25/18 01:38 Dextromethorphan/Quinidine (Nuedexta 20mg-10mg) 1 cap PO BID [facility] Stop: 01/25/18 08:59 Last Admin: 12/01/17 08:28 Dose: 1 cap Divalproex Sodium (Depakote Dr) 250 mg PO BID [facility] PRN Reason: Protocol Stop: 01/25/18 08:59 Last Admin: 12/01/17 08:27 Dose: 250 mg Lactobacillus Rhamnosus (Culturelle 15b) 1 each PO BID [facility] Stop: 01/25/18 08:59 Last Admin: 12/01/17 08:29 Dose: 1 each Levothyroxine Sodium (Synthroid) 0.05 mg PO QDAC [facility] Stop: 01/25/18 07:29 Last Admin: 12/01/17 06:38 Dose: Not Given Lorazepam (Ativan) 1 mg PO Q6H PRN; Protocol PRN Reason: Anxiety/Agitation Stop: 01/25/18 01:38 Last Admin: 12/01/17 09:29 Dose: 1 mg Losartan Potassium (Cozaar) 50 mg PO DAILY [facility] Stop: 01/25/18 08:59 Last Admin: 12/01/17 08:28 Dose: 50 mg Magnesium Hydroxide (Milk Of Magnesia) 30 ml PO HS PRN PRN Reason: Constipation Stop: 01/25/18 01:38 Mirtazapine (Remeron) 15 mg PO HS [facility] Stop: 01/25/18 02:59 Last Admin: 11/30/17 21:00 Dose: 15 mg Risperidone (Risperdal) 1 mg PO BID [facility] PRN Reason: Protocol Stop: 01/28/18 16:59 Last Admin: 12/01/17 08:28 Dose: 1 mg Zolpidem Tartrate (Ambien) 5 mg PO HS PRN PRN Reason: Insomnia Stop: 01/25/18 01:38 Last Admin: 11/30/17 21:00 Dose: 5 mg General: demented HEENT: NC/AT, PERRLA, EOMI Neck: Supple, No JVD, No LAD Lungs: CTAB Cardiovascular: RRR, Normal S1, Normal S2 Abdomen: soft, non-tender, thin Extremities: excoriation - Procedures Procedures: Procedures Procedure Code Date OTHER GROUP THERAPY 94.44 11/06/10 Internal Medicine Assmt/Plan - Assessment Assessment: htn hypothyroidism psychosis - Plan Plan: monitor bp , will adjust bp meds accordingly as needed fall precautions continue current orders
--- NOTE | 2017-12-01 13:10 | Progress Notes ---
DATE: 12/01/2017 SUBJECTIVE: Staff was spoken to. The patient is interviewed. Mood is noted to be very irritable, mood swings are still a problem. Coping was noted to be poor. The patient has been currently medicated with Risperdal and Depakote and has been able to tolerate the medication. No side effects to medications are noted. ASSESSMENT: The patient is still psychotic and impulsive. PLAN: To continue the patient with ____. Continue current medications and followup. JOB# [id number]
[2017-12-02] MEDS: Levothyroxine 0.05 Mg Tab PO SCH (06:31)
[2017-12-02] MEDS: Lactobacillus Rhamnosus GG 15 Billion CFU CAP.SPRINK PO SCH (10:40)
[2017-12-02] MEDS: Dextromethorphan/Quinidine 20mg/10mg Cap PO SCH (10:41)
[2017-12-02] MEDS: Multivitamin w/ Minerals Tab PO SCH (10:41)
--- NOTE | 2017-12-02 10:57 | Internal Medicine Prog Note ---
Internal Medicine Subjective - Subjective Service Date: 12/02/17 Patient is:: awake, verbal, non-interactive Per staff patient has:: no adverse event, no episodes of fall, poor appetite, noncompliant, tolerating meds Internal Medicine Objective - Results Result Diagrams: 11/25/17 21:03 11/25/17 21:03 Recent Labs: Laboratory Last Values WBC 9.1 Th/cmm (4.8-10.8) 11/25/17 21:03 RBC 4.23 Mil/cmm (3.80-5.20) 11/25/17 21:03 Hgb 12.2 gm/dL (12-16) 11/25/17 21:03 Hct 36.4 % (41.0-60) L 11/25/17 21:03 MCV 86.2 fl (81-100) 11/25/17 21:03 MCH 28.8 pg (27.0-31.0) 11/25/17 21:03 MCHC Differential 33.4 pg (28.0-36.0) 11/25/17 21:03 RDW 14.9 % (11.5-20.0) 11/25/17 21:03 Plt Count 220 Th/cmm (150-400) 11/25/17 21:03 MPV 8.0 fl 11/25/17 21:03 Neutrophils % 80.1 % (40.0-80.0) H 11/25/17 21:03 Lymphocytes % 8.2 % (20.0-50.0) L 11/25/17 21:03 Monocytes % 10.8 % (2.0-10.0) H 11/25/17 21:03 Eosinophils % 0.9 % (0.0-5.0) 11/25/17 21:03 Basophils % 0.0 % (0.0-2.0) 11/25/17 21:03 Sodium 136 mEq/L (136-145) 11/25/17 21:03 Potassium 4.3 mEq/L (3.5-5.1) 11/25/17 21:03 Chloride 99 mEq/L (98-107) 11/25/17 21:03 Carbon Dioxide 34.2 mEq/L (21.0-31.0) H 11/25/17 21:03 Anion Gap 7.1 (7.0-16.0) 11/25/17 21:03 BUN 27 mg/dL (7-25) H 11/25/17 21:03 Creatinine 1.0 mg/dL (0.6-1.2) 11/25/17 21:03 Est GFR ( Amer) TNP 11/25/17 21:03 Est GFR (Non-Af Amer) TNP 11/25/17 21:03 BUN/Creatinine Ratio 27.0 11/25/17 21:03 Glucose 112 mg/dL (70-105) H 11/25/17 21:03 Calcium 9.1 mg/dL (8.6-10.3) 11/25/17 21:03 Total Bilirubin 0.2 mg/dL (0.3-1.0) L 11/25/17 21:03 AST 13 U/L (13-39) 11/25/17 21:03 ALT 7 U/L (7-52) 11/25/17 21:03 Alkaline Phosphatase 56 U/L (34-104) 11/25/17 21:03 Total Protein 6.1 gm/dL (6.0-8.3) 11/25/17 21:03 Albumin 3.6 gm/dL (3.7-5.3) L 11/25/17 21:03 Globulin 2.5 gm/dL 11/25/17 21:03 Albumin/Globulin Ratio 1.4 (1.0-1.8) 11/25/17 21:03 - Physical Exam Vitals and I&O: Vital Signs Temp 98.8 F 12/02/17 06:09 Pulse 77 12/02/17 10:41 Resp 18 12/02/17 06:09 BP 116/56 12/02/17 10:41 Pulse Ox 95 12/02/17 06:09 Intake & Output 12/01/17 12/02/17 12/02/17 18:59 06:59 18:59 Intake Total 540 Balance 540 Intake: Oral 540 Other: # Voids 1 # Bowel Movements 0 Active Medications: Current Medications Acetaminophen (Tylenol) 650 mg PO Q6H PRN PRN Reason: Mild Pain/Headache/T above 101 Stop: 01/25/18 01:38 Acetaminophen/Hydrocodone Bitart ([place] 5mg/325mg) 1 tab PO Q6H PRN PRN Reason: Pain (Moderate) Stop: 01/25/18 01:55 Al Hydrox/Mg Hydrox/Simethicone (Maalox) 30 ml PO Q6H PRN PRN Reason: Dyspepsia Stop: 01/25/18 01:38 Dextromethorphan/Quinidine (Nuedexta 20mg-10mg) 1 cap PO BID [facility] Stop: 01/25/18 08:59 Last Admin: 12/02/17 10:41 Dose: 1 cap Divalproex Sodium (Depakote Dr) 250 mg PO BID JESS PRN Reason: Protocol Stop: 01/25/18 08:59 Last Admin: 12/02/17 10:41 Dose: 250 mg Lactobacillus Rhamnosus (Culturelle 15b) 1 each PO BID [facility] Stop: 01/25/18 08:59 Last Admin: 12/02/17 10:40 Dose: 1 each Levothyroxine Sodium (Synthroid) 0.05 mg PO QDAC [facility] Stop: 01/25/18 07:29 Last Admin: 12/02/17 06:31 Dose: 0.05 mg Lorazepam (Ativan) 1 mg PO Q6H PRN; Protocol PRN Reason: Anxiety/Agitation Stop: 01/25/18 01:38 Last Admin: 12/01/17 09:29 Dose: 1 mg Losartan Potassium (Cozaar) 50 mg PO DAILY [facility] Stop: 01/25/18 08:59 Last Admin: 12/02/17 10:41 Dose: Not Given Magnesium Hydroxide (Milk Of Magnesia) 30 ml PO HS PRN PRN Reason: Constipation Stop: 01/25/18 01:38 Mirtazapine (Remeron) 15 mg PO HS [facility] Stop: 01/25/18 02:59 Last Admin: 12/01/17 20:17 Dose: Not Given Risperidone (Risperdal) 1 mg PO BID [facility]ESS PRN Reason: Protocol Stop: 01/28/18 16:59 Last Admin: 12/02/17 10:41 Dose: 1 mg Zolpidem Tartrate (Ambien) 5 mg PO HS PRN PRN Reason: Insomnia Stop: 01/25/18 01:38 Last Admin: 11/30/17 21:00 Dose: 5 mg General: demented HEENT: NC/AT, PERRLA, EOMI Neck: Supple, No JVD, No LAD Lungs: CTAB Cardiovascular: RRR, Normal S1, Normal S2 Abdomen: soft, non-tender, thin Extremities: excoriation - Procedures Procedures: Procedures Procedure Code Date OTHER GROUP THERAPY 94.44 11/06/10 Internal Medicine Assmt/Plan - Assessment Assessment: htn hypothyroidism psychosis - Plan Plan: monitor bp , will adjust bp meds accordingly as needed fall precautions continue current orders Nutritional Asmnt/Malnutr-PDOC - Dietary Evaluation Malnutrition Findings (Please click <Entered> for more info): Nutritional Asmnt/Malnutrition Start: 12/01/17 17: 55 Text: Status: Complete Freq: Document 12/01/17 17:55 NEYMAR (Rec: 12/01/17 18:04 LCHENG [email or web address]) Nutritional Asmnt/Malnutrition Patient General Information Nutritional Screening Moderate Risk Diagnosis pscychosis Pertinent Medical Hx/Surgical Hx HTN, UTI, pscychosis, hypothyroidism Subjective Information Pt seen lying in bed during the time of visit, eating ice cream, confused, not able to comprehend. Family at bed side . Per notes, Po intake 75-100% , mostly 100%. Current Diet Order/ Nutrition Support [facility], inch soft chopped, boost 1 can TID Pertinent Medications culturelle, synthroid, remeron Pertinent Labs 11/25 BUN 27, Glucose 112, Alb 3.6 Nutritional Hx/Data Height 5 ft 4 in Height (Calculated Centimeters) 162.6 Current Weight (lbs) 145 lb Weight (Calculated Kilograms) 65.8 Weight (Calculated Grams) 99277.9 [place] Body Weight 120 % [place] Body Weight 120 Body Mass Index (BMI) 24.9 Weight Status Approriate GI Symptoms GI Symptoms None Last BM 11/30 Difficult in: None Skin Integrity/Comment: REDENDED TO BUTTOCKS Current %PO Good (75-100%) Estimated Nutritional Goals BEE in Kcals: Using Current wt Calories/Kcals/Kg 25-30 Kcals Calculated 4321-8551 Protein: Using Current wt Protein g/k Protein Calculated 66 Fluid: ml 1650-1980ml (1ml/kcal) Nutritional Problem No current Nutrition Prob Problem N/A Malnutrition Alert Protein-Calorie Malnutrition N/A Is there a minimum of two criteria No selected? Query Text:Check all the applicable criteria. A minimum of two criteria are recommended for diagnosis of either severe or non-severe malnutrition. Intervention/Recommendation Comments 1. Continue with current diet as ordered. Recommend d/c Boost TID d/t PO intake 75-100 % meeting 100% of nutritional needs 2. Monitor PO intake, wt, labs and skin integrity 3. F/U as low risk in 7 days, 12/08 Expected Outcomes/Goals Expected Outcomes/Goals 1. PO intake to meet at least 75% of nutritional needs. 2. Wt stability, skin to remain intact, labs to approach WNL.
--- NOTE | 2017-12-03 01:57 | Progress Notes ---
DATE: 12/02/2017 PSYCHIATRIC PROGRESS NOTE SUBJECTIVE: Staff was spoken to. The patient is interviewed. Mood is noted to be irritable. Affect is constricted. Coping skills are noted to be still poor. The patient is very irritable and angry and isolative. No side effects to the medications are noted. The patient has been mentioning that her sleep and appetite is improving, but the patient is getting easily irritable. The patient is currently on the Depakote, mirtazapine and Risperdal, which was increased to 1 mg twice a day. PLAN: To continue the patient with supportive therapy, encouraged the patient to verbalize the concerns rather than to act out. JOB# [id number]
[2017-12-03] MEDS: Levothyroxine 0.05 Mg Tab PO SCH (06:47)
[2017-12-03] MEDS: Multivitamin w/ Minerals Tab PO SCH (09:53)
[2017-12-03] MEDS: Dextromethorphan/Quinidine 20mg/10mg Cap PO SCH ×2 (09:53→17:26)
[2017-12-03] MEDS: Lactobacillus Rhamnosus GG 15 Billion CFU CAP.SPRINK PO SCH ×2 (09:53→17:26)
--- NOTE | 2017-12-03 13:31 | Internal Medicine Prog Note ---
Internal Medicine Subjective - Subjective Service Date: 12/03/17 Patient is:: awake, verbal, non-interactive Per staff patient has:: no adverse event, no episodes of fall, poor appetite, noncompliant, tolerating meds Internal Medicine Objective - Results Result Diagrams: 11/25/17 21:03 11/25/17 21:03 Recent Labs: Laboratory Last Values WBC 9.1 Th/cmm (4.8-10.8) 11/25/17 21:03 RBC 4.23 Mil/cmm (3.80-5.20) 11/25/17 21:03 Hgb 12.2 gm/dL (12-16) 11/25/17 21:03 Hct 36.4 % (41.0-60) L 11/25/17 21:03 MCV 86.2 fl (81-100) 11/25/17 21:03 MCH 28.8 pg (27.0-31.0) 11/25/17 21:03 MCHC Differential 33.4 pg (28.0-36.0) 11/25/17 21:03 RDW 14.9 % (11.5-20.0) 11/25/17 21:03 Plt Count 220 Th/cmm (150-400) 11/25/17 21:03 MPV 8.0 fl 11/25/17 21:03 Neutrophils % 80.1 % (40.0-80.0) H 11/25/17 21:03 Lymphocytes % 8.2 % (20.0-50.0) L 11/25/17 21:03 Monocytes % 10.8 % (2.0-10.0) H 11/25/17 21:03 Eosinophils % 0.9 % (0.0-5.0) 11/25/17 21:03 Basophils % 0.0 % (0.0-2.0) 11/25/17 21:03 Sodium 136 mEq/L (136-145) 11/25/17 21:03 Potassium 4.3 mEq/L (3.5-5.1) 11/25/17 21:03 Chloride 99 mEq/L (98-107) 11/25/17 21:03 Carbon Dioxide 34.2 mEq/L (21.0-31.0) H 11/25/17 21:03 Anion Gap 7.1 (7.0-16.0) 11/25/17 21:03 BUN 27 mg/dL (7-25) H 11/25/17 21:03 Creatinine 1.0 mg/dL (0.6-1.2) 11/25/17 21:03 Est GFR ( Amer) TNP 11/25/17 21:03 Est GFR (Non-Af Amer) TNP 11/25/17 21:03 BUN/Creatinine Ratio 27.0 11/25/17 21:03 Glucose 112 mg/dL (70-105) H 11/25/17 21:03 Calcium 9.1 mg/dL (8.6-10.3) 11/25/17 21:03 Total Bilirubin 0.2 mg/dL (0.3-1.0) L 11/25/17 21:03 AST 13 U/L (13-39) 11/25/17 21:03 ALT 7 U/L (7-52) 11/25/17 21:03 Alkaline Phosphatase 56 U/L (34-104) 11/25/17 21:03 Total Protein 6.1 gm/dL (6.0-8.3) 11/25/17 21:03 Albumin 3.6 gm/dL (3.7-5.3) L 11/25/17 21:03 Globulin 2.5 gm/dL 11/25/17 21:03 Albumin/Globulin Ratio 1.4 (1.0-1.8) 11/25/17 21:03 - Physical Exam Vitals and I&O: Vital Signs Temp 100.8 F 12/02/17 20:00 Pulse 84 12/02/17 20:00 Resp 18 12/02/17 20:00 BP 98/54 12/02/17 20:00 Pulse Ox 92 12/02/17 20:00 Intake & Output 12/02/17 12/03/17 12/03/17 18:59 06:59 18:59 Intake Total 960 120 Balance 960 120 Intake: Oral 960 120 Other: # Voids 3 3 # Bowel Movements 0 Active Medications: Current Medications Acetaminophen (Tylenol) 650 mg PO Q6H PRN PRN Reason: Mild Pain/Headache/T above 101 Stop: 01/25/18 01:38 Last Admin: 12/02/17 22:20 Dose: 650 mg Acetaminophen/Hydrocodone Bitart ([place] 5mg/325mg) 1 tab PO Q6H PRN PRN Reason: Pain (Moderate) Stop: 01/25/18 01:55 Al Hydrox/Mg Hydrox/Simethicone (Maalox) 30 ml PO Q6H PRN PRN Reason: Dyspepsia Stop: 01/25/18 01:38 Dextromethorphan/Quinidine (Nuedexta 20mg-10mg) [address] [facility] Stop: 01/25/18 08:59 Last Admin: 12/03/17 09:53 Dose: Not Given Divalproex Sodium (Depakote Dr) 250 mg PO BID JESS PRN Reason: Protocol Stop: 01/25/18 08:59 Last Admin: 12/03/17 09:53 Dose: Not Given Lactobacillus Rhamnosus (Culturelle 15b) [address] [facility] Stop: 01/25/18 08:59 Last Admin: 12/03/17 09:53 Dose: Not Given Levothyroxine Sodium (Synthroid) 0.05 mg PO QDAC JESS Stop: 01/25/18 07:29 Last Admin: 12/03/17 06:47 Dose: 0.05 mg Lorazepam (Ativan) 1 mg PO Q6H PRN; Protocol PRN Reason: Anxiety/Agitation Stop: 01/25/18 01:38 Last Admin: 12/01/17 09:29 Dose: 1 mg Losartan Potassium (Cozaar) [address] [facility] Stop: 01/25/18 08:59 Last Admin: 12/03/17 09:53 Dose: Not Given Magnesium Hydroxide (Milk Of Magnesia) 30 ml PO HS PRN PRN Reason: Constipation Stop: 01/25/18 01:38 Mirtazapine (Remeron) [address] [facility] Stop: 01/25/18 02:59 Last Admin: 12/02/17 21:16 Dose: 15 mg Risperidone (Risperdal) 1 mg PO BID JESS PRN Reason: Protocol Stop: 01/28/18 16:59 Last Admin: 12/03/17 09:53 Dose: Not Given Zolpidem Tartrate (Ambien) 5 mg PO HS PRN PRN Reason: Insomnia Stop: 01/25/18 01:38 Last Admin: 11/30/17 21:00 Dose: 5 mg General: demented HEENT: NC/AT, PERRLA, EOMI Neck: Supple, No JVD, No LAD Lungs: CTAB Cardiovascular: RRR, Normal S1, Normal S2 Abdomen: soft, non-tender, thin Extremities: excoriation - Procedures Procedures: Procedures Procedure Code Date OTHER GROUP THERAPY 94.44 11/06/10 Internal Medicine Assmt/Plan - Assessment Assessment: htn hypothyroidism psychosis - Plan Plan: monitor bp , will adjust bp meds accordingly as needed fall precautions continue current orders Nutritional Asmnt/Malnutr-PDOC - Dietary Evaluation Malnutrition Findings (Please click <Entered> for more info): Nutritional Asmnt/Malnutrition Start: 12/01/17 17: 55 Text: Status: Complete Freq: Document 12/01/17 17:55 GUILHERME (Rec: 12/01/17 18:04 GUILHERME [email or web address]) Nutritional Asmnt/Malnutrition Patient General Information Nutritional Screening Moderate Risk Diagnosis pscychosis Pertinent Medical Hx/Surgical Hx HTN, UTI, pscychosis, hypothyroidism Subjective Information Pt seen lying in bed during the time of visit, eating ice cream, confused, not able to comprehend. Family at bed side . Per notes, Po intake 75-100% , mostly 100%. Current Diet Order/ Nutrition Support mech soft chopped, boost 1 can TID Pertinent Medications culturelle, synthroid, remeron Pertinent Labs 11/25 BUN 27, Glucose 112, Alb 3.6 Nutritional Hx/Data Height 5 ft 4 in Height (Calculated Centimeters) 162.6 Current Weight (lbs) 145 lb Weight (Calculated Kilograms) 65.8 Weight (Calculated Grams) 73789.9 [place] Body Weight 120 % [place] Body Weight 120 Body Mass Index (BMI) 24.9 Weight Status Approriate GI Symptoms GI Symptoms None Last BM 11/30 Difficult in: None Skin Integrity/Comment: REDENDED TO BUTTOCKS Current %PO Good (75-100%) Estimated Nutritional Goals BEE in Kcals: Using Current wt Calories/Kcals/Kg 25-30 Kcals Calculated 5018-6140 Protein: Using Current wt Protein g/k Protein Calculated 66 Fluid: ml 1650-1980ml (1ml/kcal) Nutritional Problem No current Nutrition Prob Problem N/A Malnutrition Alert Protein-Calorie Malnutrition N/A Is there a minimum of two criteria No selected? Query Text:Check all the applicable criteria. A minimum of two criteria are recommended for diagnosis of either severe or non-severe malnutrition. Intervention/Recommendation Comments 1. Continue with current diet as ordered. Recommend d/c Boost TID d/t PO intake 75-100 % meeting 100% of nutritional needs 2. Monitor PO intake, wt, labs and skin integrity 3. F/U as low risk in 7 days, 12/08 Expected Outcomes/Goals Expected Outcomes/Goals 1. PO intake to meet at least 75% of nutritional needs. 2. Wt stability, skin to remain intact, labs to approach WNL.
--- NOTE | 2017-12-03 23:59 | Progress Notes ---
DATE: 12/03/2017 Staff was spoken to. The patient is interviewed. Mood is noted to be irritable. Affect is constricted. Insight and judgment at this time are noted to be very much impaired. Impulse control is noted to be poor. Coping skills are also noted to be very poor. The patient is currently on Risperdal 1 mg twice a day and has been able to tolerate the medication. No side effects to medications are noted. The patient, however, continues to be very irritable and angry, mood swings are still a problem. ASSESSMENT: The patient is still impulsive. PLAN: To continue the patient with the supportive therapy and followup. JOB# [id number]
[2017-12-04] MEDS: Levothyroxine 0.05 Mg Tab PO SCH (06:54)
[2017-12-04] MEDS: Lactobacillus Rhamnosus GG 15 Billion CFU CAP.SPRINK PO SCH ×2 (09:58→17:37)
[2017-12-04] MEDS: Multivitamin w/ Minerals Tab PO SCH (09:58)
[2017-12-04] MEDS: Dextromethorphan/Quinidine 20mg/10mg Cap PO SCH ×2 (09:58→17:37)
--- NOTE | 2017-12-04 12:55 | Internal Medicine Prog Note ---
Internal Medicine Subjective - Subjective Service Date: 12/04/17 Patient is:: awake, verbal, non-interactive Per staff patient has:: no adverse event, no episodes of fall, poor appetite, noncompliant, tolerating meds Internal Medicine Objective - Results Result Diagrams: 11/25/17 21:03 11/25/17 21:03 Recent Labs: Laboratory Last Values WBC 9.1 Th/cmm (4.8-10.8) 11/25/17 21:03 RBC 4.23 Mil/cmm (3.80-5.20) 11/25/17 21:03 Hgb 12.2 gm/dL (12-16) 11/25/17 21:03 Hct 36.4 % (41.0-60) L 11/25/17 21:03 MCV 86.2 fl (81-100) 11/25/17 21:03 MCH 28.8 pg (27.0-31.0) 11/25/17 21:03 MCHC Differential 33.4 pg (28.0-36.0) 11/25/17 21:03 RDW 14.9 % (11.5-20.0) 11/25/17 21:03 Plt Count 220 Th/cmm (150-400) 11/25/17 21:03 MPV 8.0 fl 11/25/17 21:03 Neutrophils % 80.1 % (40.0-80.0) H 11/25/17 21:03 Lymphocytes % 8.2 % (20.0-50.0) L 11/25/17 21:03 Monocytes % 10.8 % (2.0-10.0) H 11/25/17 21:03 Eosinophils % 0.9 % (0.0-5.0) 11/25/17 21:03 Basophils % 0.0 % (0.0-2.0) 11/25/17 21:03 Sodium 136 mEq/L (136-145) 11/25/17 21:03 Potassium 4.3 mEq/L (3.5-5.1) 11/25/17 21:03 Chloride 99 mEq/L (98-107) 11/25/17 21:03 Carbon Dioxide 34.2 mEq/L (21.0-31.0) H 11/25/17 21:03 Anion Gap 7.1 (7.0-16.0) 11/25/17 21:03 BUN 27 mg/dL (7-25) H 11/25/17 21:03 Creatinine 1.0 mg/dL (0.6-1.2) 11/25/17 21:03 Est GFR ( Amer) TNP 11/25/17 21:03 Est GFR (Non-Af Amer) TNP 11/25/17 21:03 BUN/Creatinine Ratio 27.0 11/25/17 21:03 Glucose 112 mg/dL (70-105) H 11/25/17 21:03 Calcium 9.1 mg/dL (8.6-10.3) 11/25/17 21:03 Total Bilirubin 0.2 mg/dL (0.3-1.0) L 11/25/17 21:03 AST 13 U/L (13-39) 11/25/17 21:03 ALT 7 U/L (7-52) 11/25/17 21:03 Alkaline Phosphatase 56 U/L (34-104) 11/25/17 21:03 Total Protein 6.1 gm/dL (6.0-8.3) 11/25/17 21:03 Albumin 3.6 gm/dL (3.7-5.3) L 11/25/17 21:03 Globulin 2.5 gm/dL 11/25/17 21:03 Albumin/Globulin Ratio 1.4 (1.0-1.8) 11/25/17 21:03 - Physical Exam Vitals and I&O: Vital Signs Temp 99.5 F 12/03/17 20:00 Pulse 77 12/03/17 20:00 Resp 18 12/03/17 20:00 BP 127/63 12/03/17 20:00 Pulse Ox 98 12/03/17 20:00 Intake & Output 12/03/17 12/04/17 12/04/17 18:59 06:59 18:59 Intake Total 900 120 Balance 900 120 Intake: Oral 900 120 Other: # Voids 3 3 Active Medications: Current Medications Acetaminophen (Tylenol) 650 mg PO Q6H PRN PRN Reason: Mild Pain/Headache/T above 101 Stop: 01/25/18 01:38 Last Admin: 12/02/17 22:20 Dose: 650 mg Acetaminophen/Hydrocodone Bitart ([place] 5mg/325mg) 1 tab PO Q6H PRN PRN Reason: Pain (Moderate) Stop: 01/25/18 01:55 Al Hydrox/Mg Hydrox/Simethicone (Maalox) 30 ml PO Q6H PRN PRN Reason: Dyspepsia Stop: 01/25/18 01:38 Dextromethorphan/Quinidine (Nuedexta 20mg-10mg) 1 cap PO BID [facility] Stop: 01/25/18 08:59 Last Admin: 12/04/17 09:58 Dose: Not Given Divalproex Sodium (Depakote Dr) 250 mg PO BID JESS PRN Reason: Protocol Stop: 01/25/18 08:59 Last Admin: 12/04/17 09:58 Dose: Not Given Lactobacillus Rhamnosus (Culturelle 15b) 1 each PO BID [facility] Stop: 01/25/18 08:59 Last Admin: 12/04/17 09:58 Dose: Not Given Levothyroxine Sodium (Synthroid) 0.05 mg PO QDAC [facility] Stop: 01/25/18 07:29 Last Admin: 12/04/17 06:54 Dose: 0.05 mg Lorazepam (Ativan) 1 mg PO Q6H PRN; Protocol PRN Reason: Anxiety/Agitation Stop: 01/25/18 01:38 Last Admin: 12/03/17 20:26 Dose: 1 mg Losartan Potassium (Cozaar) 50 mg PO DAILY [facility] Stop: 01/25/18 08:59 Last Admin: 12/04/17 09:58 Dose: Not Given Magnesium Hydroxide (Milk Of Magnesia) 30 ml PO HS PRN PRN Reason: Constipation Stop: 01/25/18 01:38 Mirtazapine (Remeron) 15 mg PO HS [facility] Stop: 01/25/18 02:59 Last Admin: 12/03/17 20:25 Dose: 15 mg Risperidone (Risperdal) 1 mg PO BID JESS PRN Reason: Protocol Stop: 01/28/18 16:59 Last Admin: 12/04/17 09:58 Dose: Not Given Zolpidem Tartrate (Ambien) 5 mg PO HS PRN PRN Reason: Insomnia Stop: 01/25/18 01:38 Last Admin: 11/30/17 21:00 Dose: 5 mg General: demented HEENT: NC/AT, PERRLA, EOMI Neck: Supple, No JVD, No LAD Lungs: CTAB Cardiovascular: RRR, Normal S1, Normal S2 Abdomen: soft, non-tender, thin Extremities: excoriation - Procedures Procedures: Procedures Procedure Code Date OTHER GROUP THERAPY 94.44 11/06/10 Internal Medicine Assmt/Plan - Assessment Assessment: htn hypothyroidism psychosis - Plan Plan: monitor bp , will adjust bp meds accordingly as needed fall precautions continue current orders Nutritional Asmnt/Malnutr-PDOC - Dietary Evaluation Malnutrition Findings (Please click <Entered> for more info): Nutritional Asmnt/Malnutrition Start: 12/01/17 17: 55 Text: Status: Complete Freq: Document 12/01/17 17:55 GUILHERME (Rec: 12/01/17 18:04 GUILHERME [email or web address]) Nutritional Asmnt/Malnutrition Patient General Information Nutritional Screening Moderate Risk Diagnosis pscychosis Pertinent Medical Hx/Surgical Hx HTN, UTI, pscychosis, hypothyroidism Subjective Information Pt seen lying in bed during the time of visit, eating ice cream, confused, not able to comprehend. Family at bed side . Per notes, Po intake 75-100% , mostly 100%. Current Diet Order/ Nutrition Support mech soft chopped, boost 1 can TID Pertinent Medications culturelle, synthroid, remeron Pertinent Labs 11/25 BUN 27, Glucose 112, Alb 3.6 Nutritional Hx/Data Height 5 ft 4 in Height (Calculated Centimeters) 162.6 Current Weight (lbs) 145 lb Weight (Calculated Kilograms) 65.8 Weight (Calculated Grams) 47780.9 [place] Body Weight 120 % [place] Body Weight 120 Body Mass Index (BMI) 24.9 Weight Status Approriate GI Symptoms GI Symptoms None Last BM 11/30 Difficult in: None Skin Integrity/Comment: REDENDED TO BUTTOCKS Current %PO Good (75-100%) Estimated Nutritional Goals BEE in Kcals: Using Current wt Calories/Kcals/Kg 25-30 Kcals Calculated 0037-8799 Protein: Using Current wt Protein g/k Protein Calculated 66 Fluid: ml 1650-1980ml (1ml/kcal) Nutritional Problem No current Nutrition Prob Problem N/A Malnutrition Alert Protein-Calorie Malnutrition N/A Is there a minimum of two criteria No selected? Query Text:Check all the applicable criteria. A minimum of two criteria are recommended for diagnosis of either severe or non-severe malnutrition. Intervention/Recommendation Comments 1. Continue with current diet as ordered. Recommend d/c Boost TID d/t PO intake 75-100 % meeting 100% of nutritional needs 2. Monitor PO intake, wt, labs and skin integrity 3. F/U as low risk in 7 days, 12/08 Expected Outcomes/Goals Expected Outcomes/Goals 1. PO intake to meet at least 75% of nutritional needs. 2. Wt stability, skin to remain intact, labs to approach WNL.
--- NOTE | 2017-12-04 18:26 | Progress Notes ---
DATE: 12/04/2017 SUBJECTIVE: Staff was spoken to. The patient is interviewed. Mood is noted to be irritable. Affect is constricted. Coping skills are noted to be poor. The patient is isolative and withdrawn. The patient has been having difficult time to cope with the stress. The patient is currently on the Depakote as well as the Risperdal and has been able to tolerate. ASSESSMENT: The patient is still having mood swings. PLAN: To continue the patient with the supportive therapy and followup. [facility]# [id number]
[2017-12-05] MEDS: Levothyroxine 0.05 Mg Tab PO SCH (06:39)
[2017-12-05] MEDS: Lactobacillus Rhamnosus GG 15 Billion CFU CAP.SPRINK PO SCH ×2 (09:25→16:27)
[2017-12-05] MEDS: Dextromethorphan/Quinidine 20mg/10mg Cap PO SCH ×2 (09:25→16:26)
[2017-12-05] MEDS: Multivitamin w/ Minerals Tab PO SCH (09:25)
--- NOTE | 2017-12-05 17:26 | Internal Medicine Prog Note ---
Internal Medicine Subjective - Subjective Patient seen and examined:: with staff, chart reviewed Patient is:: awake, verbal, non-interactive Per staff patient has:: no adverse event, no episodes of fall, poor appetite, noncompliant, tolerating meds Internal Medicine Objective - Results Result Diagrams: 11/25/17 21:03 11/25/17 21:03 Recent Labs: Laboratory Last Values WBC 9.1 Th/cmm (4.8-10.8) 11/25/17 21:03 RBC 4.23 Mil/cmm (3.80-5.20) 11/25/17 21:03 Hgb 12.2 gm/dL (12-16) 11/25/17 21:03 Hct 36.4 % (41.0-60) L 11/25/17 21:03 MCV 86.2 fl (81-100) 11/25/17 21:03 MCH 28.8 pg (27.0-31.0) 11/25/17 21:03 MCHC Differential 33.4 pg (28.0-36.0) 11/25/17 21:03 RDW 14.9 % (11.5-20.0) 11/25/17 21:03 Plt Count 220 Th/cmm (150-400) 11/25/17 21:03 MPV 8.0 fl 11/25/17 21:03 Neutrophils % 80.1 % (40.0-80.0) H 11/25/17 21:03 Lymphocytes % 8.2 % (20.0-50.0) L 11/25/17 21: Monocytes % 10.8 % (2.0-10.0) H 11/25/17 21:03 Eosinophils % 0.9 % (0.0-5.0) 11/25/17 21:03 Basophils % 0.0 % (0.0-2.0) 11/25/17 21:03 Sodium 136 mEq/L (136-145) 11/25/17 21:03 Potassium 4.3 mEq/L (3.5-5.1) 11/25/17 21:03 Chloride 99 mEq/L (98-107) 11/25/17 21:03 Carbon Dioxide 34.2 mEq/L (21.0-31.0) H 11/25/17 21:03 Anion Gap 7.1 (7.0-16.0) 11/25/17 21:03 BUN 27 mg/dL (7-25) H 11/25/17 21:03 Creatinine 1.0 mg/dL (0.6-1.2) 11/25/17 21:03 Est GFR ( Amer) TNP 11/25/17 21:03 Est GFR (Non-Af Amer) TNP 11/25/17 21:03 BUN/Creatinine Ratio 27.0 11/25/17 21:03 Glucose 112 mg/dL (70-105) H 11/25/17 21:03 Calcium 9.1 mg/dL (8.6-10.3) 11/25/17 21:03 Total Bilirubin 0.2 mg/dL (0.3-1.0) L 11/25/17 21:03 AST 13 U/L (13-39) 11/25/17 21:03 ALT 7 U/L (7-52) 11/25/17 21:03 Alkaline Phosphatase 56 U/L (34-104) 11/25/17 21:03 Total Protein 6.1 gm/dL (6.0-8.3) 11/25/17 21:03 Albumin 3.6 gm/dL (3.7-5.3) L 11/25/17 21:03 Globulin 2.5 gm/dL 11/25/17 21:03 Albumin/Globulin Ratio 1.4 (1.0-1.8) 11/25/17 21:03 - Physical Exam Vitals and I&O: Vital Signs Temp 98.6 F 12/05/17 14:00 Pulse 73 12/05/17 14:00 Resp 20 12/05/17 14:00 BP 112/78 12/05/17 14:00 Pulse Ox 95 12/05/17 14:00 Intake & Output 12/04/17 12/05/17 12/05/17 18:59 06:59 18:59 Intake Total 960 120 Balance 960 120 Intake: Oral 960 120 Other: # Voids 4 3 # Bowel Movements 0 Active Medications: Current Medications Acetaminophen (Tylenol) 650 mg PO Q6H PRN PRN Reason: Mild Pain/Headache/T above 101 Stop: 01/25/18 01:38 Last Admin: 12/02/17 22:20 Dose: 650 mg Acetaminophen/Hydrocodone Bitart ([place] 5mg/325mg) 1 tab PO Q6H PRN PRN Reason: Pain (Moderate) Stop: 01/25/18 01:55 Al Hydrox/Mg Hydrox/Simethicone (Maalox) 30 ml PO Q6H PRN PRN Reason: Dyspepsia Stop: 01/25/18 01:38 Dextromethorphan/Quinidine (Nuedexta 20mg-10mg) 1 cap PO BID [facility] Stop: 01/25/18 08:59 Last Admin: 12/05/17 16:26 Dose: 1 cap Divalproex Sodium (Depakote Dr) 250 mg PO BID JESS PRN Reason: Protocol Stop: 01/25/18 08:59 Last Admin: 12/05/17 16:27 Dose: 250 mg Lactobacillus Rhamnosus (Culturelle 15b) 1 each PO BID [facility] Stop: 01/25/18 08:59 Last Admin: 12/05/17 16:27 Dose: 1 each Levothyroxine Sodium (Synthroid) 0.05 mg PO QDAC [facility] Stop: 01/25/18 07:29 Last Admin: 12/05/17 06:39 Dose: 0.05 mg Lorazepam (Ativan) 1 mg PO Q6H PRN; Protocol PRN Reason: Anxiety/Agitation Stop: 01/25/18 01:38 Last Admin: 12/05/17 14:14 Dose: 1 mg Losartan Potassium (Cozaar) 50 mg PO DAILY [facility] Stop: 01/25/18 08:59 Last Admin: 12/05/17 09:25 Dose: Not Given Magnesium Hydroxide (Milk Of Magnesia) 30 ml PO HS PRN PRN Reason: Constipation Stop: 01/25/18 01:38 Risperidone (Risperdal) 1 mg PO BID JESS PRN Reason: Protocol Stop: 01/28/18 16:59 Last Admin: 12/05/17 16:27 Dose: 1 mg Zolpidem Tartrate (Ambien) 5 mg PO HS PRN PRN Reason: Insomnia Stop: 01/25/18 01:38 Last Admin: 11/30/17 21:00 Dose: 5 mg General: demented HEENT: NC/AT, PERRLA, EOMI Neck: Supple, No JVD, No LAD Lungs: CTAB Cardiovascular: RRR, Normal S1, Normal S2 Abdomen: soft, non-tender, thin Extremities: excoriation - Procedures Procedures: Procedures Procedure Code Date OTHER GROUP THERAPY 94.44 11/06/10 Internal Medicine Assmt/Plan - Assessment Assessment: - Assessment Assessment: htn hypothyroidism psychosis - Plan Plan: monitor bp , will adjust bp meds accordingly as needed fall precautions continue current orders - Plan Plan: cpm labs noted Nutritional Asmnt/Malnutr-PDOC - Dietary Evaluation Malnutrition Findings (Please click <Entered> for more info): Nutritional Asmnt/Malnutrition Start: 12/01/17 17: 55 Text: Status: Complete Freq: Document 12/01/17 17:55 LCHENG (Rec: 12/01/17 18:04 LCHENG [email or web address]) Nutritional Asmnt/Malnutrition Patient General Information Nutritional Screening Moderate Risk Diagnosis pscychosis Pertinent Medical Hx/Surgical Hx HTN, UTI, pscychosis, hypothyroidism Subjective Information Pt seen lying in bed during the time of visit, eating ice cream, confused, not able to comprehend. Family at bed side . Per notes, Po intake 75-100% , mostly 100%. Current Diet Order/ Nutrition Support mech soft chopped, boost 1 can TID Pertinent Medications culturelle, synthroid, remeron Pertinent Labs 11/25 BUN 27, Glucose 112, Alb 3.6 Nutritional Hx/Data Height 1.63 m Height (Calculated Centimeters) 162.6 Current Weight (lbs) 65.771 kg Weight (Calculated Kilograms) 65.8 Weight (Calculated Grams) 81775.9 [place] Body Weight 120 % [place] Body Weight 120 Body Mass Index (BMI) 24.9 Weight Status Approriate GI Symptoms GI Symptoms None Last BM 11/30 Difficult in: None Skin Integrity/Comment: REDENDED TO BUTTOCKS Current %PO Good (75-100%) Estimated Nutritional Goals BEE in Kcals: Using Current wt Calories/Kcals/Kg 25-30 Kcals Calculated 7649-2136 Protein: Using Current wt Protein g/k Protein Calculated 66 Fluid: ml 1650-1980ml (1ml/kcal) Nutritional Problem No current Nutrition Prob Problem N/A Malnutrition Alert Protein-Calorie Malnutrition N/A Is there a minimum of two criteria No selected? Query Text:Check all the applicable criteria. A minimum of two criteria are recommended for diagnosis of either severe or non-severe malnutrition. Intervention/Recommendation Comments 1. Continue with current diet as ordered. Recommend d/c Boost TID d/t PO intake 75-100 % meeting 100% of nutritional needs 2. Monitor PO intake, wt, labs and skin integrity 3. F/U as low risk in 7 days, 12/08 Expected Outcomes/Goals Expected Outcomes/Goals 1. PO intake to meet at least 75% of nutritional needs. 2. Wt stability, skin to remain intact, labs to approach WNL.
--- NOTE | 2017-12-05 20:34 | Progress Notes ---
DATE: 12/05/2017 SUBJECTIVE: Staff was spoken to. The patient is interviewed. Mood is noted to be irritable. Affect is constricted. The patient's mood swings are still a problem, but patient gets easily annoyed and tends to be sarcastic. No side effects to the medications are noted. The patient has been on the valproic acid 250 mg twice a day and Risperdal 1 mg and the patient has been able to tolerate the medications. No side effects to the medications are noted. The patient has been sleeping most of the time and hence it is decided to discontinue the mirtazapine and continue the patient with the Depakote and the Risperdal and follow the patient with supportive therapy. [facility]# [id number]
[2017-12-06] MEDS: Levothyroxine 0.05 Mg Tab PO SCH (06:57)
[2017-12-06] MEDS: Multivitamin w/ Minerals Tab PO SCH (08:53)
[2017-12-06] MEDS: Dextromethorphan/Quinidine 20mg/10mg Cap PO SCH ×2 (08:53→16:24)
[2017-12-06] MEDS: Lactobacillus Rhamnosus GG 15 Billion CFU CAP.SPRINK PO SCH ×2 (08:53→16:24)
--- NOTE | 2017-12-06 12:53 | Internal Medicine Prog Note ---
Internal Medicine Subjective - Subjective Patient seen and examined:: with staff, chart reviewed Patient is:: awake, verbal, non-interactive Per staff patient has:: no adverse event, no episodes of fall, poor appetite, noncompliant, tolerating meds Internal Medicine Objective - Results Result Diagrams: 11/25/17 21:03 11/25/17 21:03 Recent Labs: Laboratory Last Values WBC 9.1 Th/cmm (4.8-10.8) 11/25/17 21:03 RBC 4.23 Mil/cmm (3.80-5.20) 11/25/17 21:03 Hgb 12.2 gm/dL (12-16) 11/25/17 21:03 Hct 36.4 % (41.0-60) L 11/25/17 21:03 MCV 86.2 fl (81-100) 11/25/17 21:03 MCH 28.8 pg (27.0-31.0) 11/25/17 21:03 MCHC Differential 33.4 pg (28.0-36.0) 11/25/17 21:03 RDW 14.9 % (11.5-20.0) 11/25/17 21:03 Plt Count 220 Th/cmm (150-400) 11/25/17 21:03 MPV 8.0 fl 11/25/17 21:03 Neutrophils % 80.1 % (40.0-80.0) H 11/25/17 21:03 Lymphocytes % 8.2 % (20.0-50.0) L 11/25/17 21: Monocytes % 10.8 % (2.0-10.0) H 11/25/17 21:03 Eosinophils % 0.9 % (0.0-5.0) 11/25/17 21:03 Basophils % 0.0 % (0.0-2.0) 11/25/17 21:03 Sodium 136 mEq/L (136-145) 11/25/17 21:03 Potassium 4.3 mEq/L (3.5-5.1) 11/25/17 21:03 Chloride 99 mEq/L (98-107) 11/25/17 21:03 Carbon Dioxide 34.2 mEq/L (21.0-31.0) H 11/25/17 21:03 Anion Gap 7.1 (7.0-16.0) 11/25/17 21:03 BUN 27 mg/dL (7-25) H 11/25/17 21:03 Creatinine 1.0 mg/dL (0.6-1.2) 11/25/17 21:03 Est GFR ( Amer) TNP 11/25/17 21:03 Est GFR (Non-Af Amer) TNP 11/25/17 21:03 BUN/Creatinine Ratio 27.0 11/25/17 21:03 Glucose 112 mg/dL (70-105) H 11/25/17 21:03 Calcium 9.1 mg/dL (8.6-10.3) 11/25/17 21:03 Total Bilirubin 0.2 mg/dL (0.3-1.0) L 11/25/17 21:03 AST 13 U/L (13-39) 11/25/17 21:03 ALT 7 U/L (7-52) 11/25/17 21:03 Alkaline Phosphatase 56 U/L (34-104) 11/25/17 21:03 Total Protein 6.1 gm/dL (6.0-8.3) 11/25/17 21:03 Albumin 3.6 gm/dL (3.7-5.3) L 11/25/17 21:03 Globulin 2.5 gm/dL 11/25/17 21:03 Albumin/Globulin Ratio 1.4 (1.0-1.8) 11/25/17 21:03 - Physical Exam Vitals and I&O: Vital Signs Temp 97.9 F 12/06/17 06:03 Pulse 66 12/06/17 08:54 Resp 20 12/06/17 06:03 BP 123/58 12/06/17 08:54 Pulse Ox 96 12/06/17 06:03 Intake & Output 12/05/17 12/06/17 12/06/17 18:59 06:59 18:59 Intake Total 1200 480 Balance 1200 480 Intake: Oral 1200 480 Other: # Voids 3 1 Active Medications: Current Medications Acetaminophen (Tylenol) 650 mg PO Q6H PRN PRN Reason: Mild Pain/Headache/T above 101 Stop: 01/25/18 01:38 Last Admin: 12/02/17 22:20 Dose: 650 mg Acetaminophen/Hydrocodone Bitart ([place] 5mg/325mg) 1 tab PO Q6H PRN PRN Reason: Pain (Moderate) Stop: 01/25/18 01:55 Al Hydrox/Mg Hydrox/Simethicone (Maalox) 30 ml PO Q6H PRN PRN Reason: Dyspepsia Stop: 01/25/18 01:38 Dextromethorphan/Quinidine (Nuedexta 20mg-10mg) 1 cap PO BID [facility] Stop: 01/25/18 08:59 Last Admin: 12/06/17 08:53 Dose: 1 cap Divalproex Sodium (Depakote Dr) 250 mg PO BID JESS PRN Reason: Protocol Stop: 01/25/18 08:59 Last Admin: 12/06/17 08:53 Dose: 250 mg Lactobacillus Rhamnosus (Culturelle 15b) 1 each PO BID [facility] Stop: 01/25/18 08:59 Last Admin: 12/06/17 08:53 Dose: 1 each Levothyroxine Sodium (Synthroid) 0.05 mg PO QDAC [facility] Stop: 01/25/18 07:29 Last Admin: 12/06/17 06:57 Dose: 0.05 mg Lorazepam (Ativan) 1 mg PO Q6H PRN; Protocol PRN Reason: Anxiety/Agitation Stop: 01/25/18 01:38 Last Admin: 12/06/17 08:53 Dose: 1 mg Losartan Potassium (Cozaar) 50 mg PO DAILY [facility] Stop: 01/25/18 08:59 Last Admin: 12/06/17 08:54 Dose: 50 mg Magnesium Hydroxide (Milk Of Magnesia) 30 ml PO HS PRN PRN Reason: Constipation Stop: 01/25/18 01:38 Risperidone (Risperdal) 1 mg PO BID JESS PRN Reason: Protocol Stop: 01/28/18 16:59 Last Admin: 12/06/17 08:53 Dose: 1 mg Zolpidem Tartrate (Ambien) 5 mg PO HS PRN PRN Reason: Insomnia Stop: 01/25/18 01:38 Last Admin: 12/05/17 20:29 Dose: 5 mg General: demented HEENT: NC/AT, PERRLA, EOMI Neck: Supple, No JVD, No LAD Lungs: CTAB Cardiovascular: RRR, Normal S1, Normal S2 Abdomen: soft, non-tender, thin Extremities: excoriation - Procedures Procedures: Procedures Procedure Code Date OTHER GROUP THERAPY 94.44 11/06/10 Internal Medicine Assmt/Plan - Assessment Assessment: - Assessment Assessment: htn hypothyroidism psychosis - Plan Plan: monitor bp , will adjust bp meds accordingly as needed fall precautions continue current orders - Plan Plan: cpm labs noted Nutritional Asmnt/Malnutr-PDOC - Dietary Evaluation Malnutrition Findings (Please click <Entered> for more info): Nutritional Asmnt/Malnutrition Start: 12/01/17 17: 55 Text: Status: Complete Freq: Document 12/01/17 17:55 NEYMAR (Rec: 12/01/17 18:04 LCHENG [email or web address]) Nutritional Asmnt/Malnutrition Patient General Information Nutritional Screening Moderate Risk Diagnosis pscychosis Pertinent Medical Hx/Surgical Hx HTN, UTI, pscychosis, hypothyroidism Subjective Information Pt seen lying in bed during the time of visit, eating ice cream, confused, not able to comprehend. Family at bed side . Per notes, Po intake 75-100% , mostly 100%. Current Diet Order/ Nutrition Support mech soft chopped, boost 1 can TID Pertinent Medications culturelle, synthroid, remeron Pertinent Labs 11/25 BUN 27, Glucose 112, Alb 3.6 Nutritional Hx/Data Height 1.63 m Height (Calculated Centimeters) 162.6 Current Weight (lbs) 65.771 kg Weight (Calculated Kilograms) 65.8 Weight (Calculated Grams) 88269.9 [place] Body Weight 120 % [place] Body Weight 120 Body Mass Index (BMI) 24.9 Weight Status Approriate GI Symptoms GI Symptoms None Last BM 11/30 Difficult in: None Skin Integrity/Comment: REDENDED TO BUTTOCKS Current %PO Good (75-100%) Estimated Nutritional Goals BEE in Kcals: Using Current wt Calories/Kcals/Kg 25-30 Kcals Calculated 3296-7464 Protein: Using Current wt Protein g/k Protein Calculated 66 Fluid: ml 1650-1980ml (1ml/kcal) Nutritional Problem No current Nutrition Prob Problem N/A Malnutrition Alert Protein-Calorie Malnutrition N/A Is there a minimum of two criteria No selected? Query Text:Check all the applicable criteria. A minimum of two criteria are recommended for diagnosis of either severe or non-severe malnutrition. Intervention/Recommendation Comments 1. Continue with current diet as ordered. Recommend d/c Boost TID d/t PO intake 75-100 % meeting 100% of nutritional needs 2. Monitor PO intake, wt, labs and skin integrity 3. F/U as low risk in 7 days, 12/08 Expected Outcomes/Goals Expected Outcomes/Goals 1. PO intake to meet at least 75% of nutritional needs. 2. Wt stability, skin to remain intact, labs to approach WNL.
--- NOTE | 2017-12-06 13:24 | Progress Notes ---
DATE: 12/06/2017 SUBJECTIVE: Staff was spoken to. The patient is interviewed. Mood is noted to be irritable and affect is constricted. The patient's insight and judgment are noted to be still impaired. Impulse control is noted to be poor. The patient is screaming and yelling. The patient has no insight into her illness. The patient's Depakote is going to be gradually increased to 250 mg 3 times a day in view of the mood swings and the patient is going to be followed up. ASSESSMENT: The patient is still impulsive. PLAN: To continue the patient with the supportive therapy and followup. JOB# [id number]
[2017-12-07] MEDS: Levothyroxine 0.05 Mg Tab PO SCH (06:34)
[2017-12-07] MEDS: Multivitamin w/ Minerals Tab PO SCH (09:27)
[2017-12-07] MEDS: Lactobacillus Rhamnosus GG 15 Billion CFU CAP.SPRINK PO SCH ×2 (09:28→17:15)
[2017-12-07] MEDS: Dextromethorphan/Quinidine 20mg/10mg Cap PO SCH ×2 (09:28→17:15)
--- NOTE | 2017-12-07 11:53 | Internal Medicine Prog Note ---
Internal Medicine Subjective - Subjective Service Date: 12/07/17 Patient is:: awake, verbal, non-interactive Per staff patient has:: no adverse event, no episodes of fall, poor appetite, noncompliant, tolerating meds Internal Medicine Objective - Results Result Diagrams: 11/25/17 21:03 11/25/17 21:03 Recent Labs: Laboratory Last Values WBC 9.1 Th/cmm (4.8-10.8) 11/25/17 21:03 RBC 4.23 Mil/cmm (3.80-5.20) 11/25/17 21:03 Hgb 12.2 gm/dL (12-16) 11/25/17 21:03 Hct 36.4 % (41.0-60) L 11/25/17 21:03 MCV 86.2 fl (81-100) 11/25/17 21:03 MCH 28.8 pg (27.0-31.0) 11/25/17 21:03 MCHC Differential 33.4 pg (28.0-36.0) 11/25/17 21:03 RDW 14.9 % (11.5-20.0) 11/25/17 21:03 Plt Count 220 Th/cmm (150-400) 11/25/17 21:03 MPV 8.0 fl 11/25/17 21:03 Neutrophils % 80.1 % (40.0-80.0) H 11/25/17 21:03 Lymphocytes % 8.2 % (20.0-50.0) L 11/25/17 21:03 Monocytes % 10.8 % (2.0-10.0) H 11/25/17 21:03 Eosinophils % 0.9 % (0.0-5.0) 11/25/17 21:03 Basophils % 0.0 % (0.0-2.0) 11/25/17 21:03 Sodium 136 mEq/L (136-145) 11/25/17 21:03 Potassium 4.3 mEq/L (3.5-5.1) 11/25/17 21:03 Chloride 99 mEq/L (98-107) 11/25/17 21:03 Carbon Dioxide 34.2 mEq/L (21.0-31.0) H 11/25/17 21:03 Anion Gap 7.1 (7.0-16.0) 11/25/17 21:03 BUN 27 mg/dL (7-25) H 11/25/17 21:03 Creatinine 1.0 mg/dL (0.6-1.2) 11/25/17 21:03 Est GFR ( Amer) TNP 11/25/17 21:03 Est GFR (Non-Af Amer) TNP 11/25/17 21:03 BUN/Creatinine Ratio 27.0 11/25/17 21:03 Glucose 112 mg/dL (70-105) H 11/25/17 21:03 Calcium 9.1 mg/dL (8.6-10.3) 11/25/17 21:03 Total Bilirubin 0.2 mg/dL (0.3-1.0) L 11/25/17 21:03 AST 13 U/L (13-39) 11/25/17 21:03 ALT 7 U/L (7-52) 11/25/17 21:03 Alkaline Phosphatase 56 U/L (34-104) 11/25/17 21:03 Total Protein 6.1 gm/dL (6.0-8.3) 11/25/17 21:03 Albumin 3.6 gm/dL (3.7-5.3) L 11/25/17 21:03 Globulin 2.5 gm/dL 11/25/17 21:03 Albumin/Globulin Ratio 1.4 (1.0-1.8) 11/25/17 21:03 - Physical Exam Vitals and I&O: Vital Signs Temp 97.9 F 12/07/17 06:34 Pulse 74 12/07/17 09:28 Resp 19 12/07/17 06:34 BP 112/56 12/07/17 09:28 Pulse Ox 95 12/07/17 06:34 Intake & Output 12/06/17 12/07/17 12/07/17 18:59 06:59 18:59 Intake Total 1200 60 Balance 1200 60 Intake: Oral 1200 60 Other: # Voids 2 2 # Bowel Movements 0 Active Medications: Current Medications Acetaminophen (Tylenol) 650 mg PO Q6H PRN PRN Reason: Mild Pain/Headache/T above 101 Stop: 01/25/18 01:38 Last Admin: 12/02/17 22:20 Dose: 650 mg Acetaminophen/Hydrocodone Bitart ([place] 5mg/325mg) 1 tab PO Q6H PRN PRN Reason: Pain (Moderate) Stop: 01/25/18 01:55 Al Hydrox/Mg Hydrox/Simethicone (Maalox) 30 ml PO Q6H PRN PRN Reason: Dyspepsia Stop: 01/25/18 01:38 Dextromethorphan/Quinidine (Nuedexta 20mg-10mg) 1 cap PO BID [facility] Stop: 01/25/18 08:59 Last Admin: 12/07/17 09:28 Dose: 1 cap Divalproex Sodium (Depakote Dr) 250 mg PO TID JESS PRN Reason: Protocol Stop: 02/04/18 13:59 Last Admin: 12/07/17 09:28 Dose: 250 mg Lactobacillus Rhamnosus (Culturelle 15b) 1 each PO BID [facility] Stop: 01/25/18 08:59 Last Admin: 12/07/17 09:28 Dose: 1 each Levothyroxine Sodium (Synthroid) 0.05 mg PO QDAC [facility] Stop: 01/25/18 07:29 Last Admin: 12/07/17 06:34 Dose: 0.05 mg Lorazepam (Ativan) 1 mg PO Q6H PRN; Protocol PRN Reason: Anxiety/Agitation Stop: 01/25/18 01:38 Last Admin: 12/06/17 08:53 Dose: 1 mg Losartan Potassium (Cozaar) 50 mg PO DAILY [facility] Stop: 01/25/18 08:59 Last Admin: 12/07/17 09:28 Dose: 50 mg Magnesium Hydroxide (Milk Of Magnesia) 30 ml PO HS PRN PRN Reason: Constipation Stop: 01/25/18 01:38 Risperidone (Risperdal) 1 mg PO BID JESS PRN Reason: Protocol Stop: 01/28/18 16:59 Last Admin: 12/07/17 09:28 Dose: 1 mg Zolpidem Tartrate (Ambien) 5 mg PO HS PRN PRN Reason: Insomnia Stop: 01/25/18 01:38 Last Admin: 12/06/17 21:40 Dose: 5 mg General: demented HEENT: NC/AT, PERRLA, EOMI Neck: Supple, No JVD, No LAD Lungs: CTAB Cardiovascular: RRR, Normal S1, Normal S2 Abdomen: soft, non-tender, thin Extremities: excoriation - Procedures Procedures: Procedures Procedure Code Date OTHER GROUP THERAPY 94.44 11/06/10 Internal Medicine Assmt/Plan - Assessment Assessment: htn hypothyroidism psychosis - Plan Plan: monitor bp , will adjust bp meds accordingly as needed fall precautions continue current orders Nutritional Asmnt/Malnutr-PDOC - Dietary Evaluation Malnutrition Findings (Please click <Entered> for more info): Nutritional Asmnt/Malnutrition Start: 12/01/17 17: 55 Text: Status: Complete Freq: Document 12/01/17 17:55 LCHENG (Rec: 12/01/17 18:04 LCHENG [email or web address]) Nutritional Asmnt/Malnutrition Patient General Information Nutritional Screening Moderate Risk Diagnosis pscychosis Pertinent Medical Hx/Surgical Hx HTN, UTI, pscychosis, hypothyroidism Subjective Information Pt seen lying in bed during the time of visit, eating ice cream, confused, not able to comprehend. Family at bed side . Per notes, Po intake 75-100% , mostly 100%. Current Diet Order/ Nutrition Support mech soft chopped, boost 1 can TID Pertinent Medications culturelle, synthroid, remeron Pertinent Labs 11/25 BUN 27, Glucose 112, Alb 3.6 Nutritional Hx/Data Height 5 ft 4 in Height (Calculated Centimeters) 162.6 Current Weight (lbs) 145 lb Weight (Calculated Kilograms) 65.8 Weight (Calculated Grams) 37841.9 [place] Body Weight 120 % [place] Body Weight 120 Body Mass Index (BMI) 24.9 Weight Status Approriate GI Symptoms GI Symptoms None Last BM 11/30 Difficult in: None Skin Integrity/Comment: REDENDED TO BUTTOCKS Current %PO Good (75-100%) Estimated Nutritional Goals BEE in Kcals: Using Current wt Calories/Kcals/Kg 25-30 Kcals Calculated 1342-0637 Protein: Using Current wt Protein g/k Protein Calculated 66 Fluid: ml 1650-1980ml (1ml/kcal) Nutritional Problem No current Nutrition Prob Problem N/A Malnutrition Alert Protein-Calorie Malnutrition N/A Is there a minimum of two criteria No selected? Query Text:Check all the applicable criteria. A minimum of two criteria are recommended for diagnosis of either severe or non-severe malnutrition. Intervention/Recommendation Comments 1. Continue with current diet as ordered. Recommend d/c Boost TID d/t PO intake 75-100 % meeting 100% of nutritional needs 2. Monitor PO intake, wt, labs and skin integrity 3. F/U as low risk in 7 days, 12/08 Expected Outcomes/Goals Expected Outcomes/Goals 1. PO intake to meet at least 75% of nutritional needs. 2. Wt stability, skin to remain intact, labs to approach WNL.
--- NOTE | 2017-12-07 21:25 | Progress Notes ---
DATE: 12/07/2017 SUBJECTIVE: Staff was spoken to. The patient is interviewed. Mood is noted to be irritable. The patient is screaming and yelling in the GD chair. The patient has no insight into her illness. Coping skills are noted to be extremely poor. The patient's sleep is noted to be poor. Appetite is noted to be improving. The patient is currently on mood stabilizer, Depakote as well as the Risperdal and has been able to tolerate medication. No side effects to the medications are noted. ASSESSMENT: The patient is still impulsive. PLAN: To continue the patient on current medications and followup. JOB# [id number]
[2017-12-08] MEDS: Levothyroxine 0.05 Mg Tab PO SCH (06:48)
[2017-12-08] MEDS: Dextromethorphan/Quinidine 20mg/10mg Cap PO SCH ×2 (09:06→17:11)
[2017-12-08] MEDS: Lactobacillus Rhamnosus GG 15 Billion CFU CAP.SPRINK PO SCH ×2 (09:06→17:11)
[2017-12-08] MEDS: Multivitamin w/ Minerals Tab PO SCH (09:07)
--- NOTE | 2017-12-08 16:10 | Internal Medicine Prog Note ---
Internal Medicine Subjective - Subjective Service Date: 12/08/17 Patient is:: awake, verbal, non-interactive Per staff patient has:: no adverse event, no episodes of fall, poor appetite, noncompliant, tolerating meds Internal Medicine Objective - Results Result Diagrams: 11/25/17 21:03 11/25/17 21:03 Recent Labs: Laboratory Last Values WBC 9.1 Th/cmm (4.8-10.8) 11/25/17 21:03 RBC 4.23 Mil/cmm (3.80-5.20) 11/25/17 21:03 Hgb 12.2 gm/dL (12-16) 11/25/17 21:03 Hct 36.4 % (41.0-60) L 11/25/17 21:03 MCV 86.2 fl (81-100) 11/25/17 21:03 MCH 28.8 pg (27.0-31.0) 11/25/17 21:03 MCHC Differential 33.4 pg (28.0-36.0) 11/25/17 21:03 RDW 14.9 % (11.5-20.0) 11/25/17 21:03 Plt Count 220 Th/cmm (150-400) 11/25/17 21:03 MPV 8.0 fl 11/25/17 21:03 Neutrophils % 80.1 % (40.0-80.0) H 11/25/17 21:03 Lymphocytes % 8.2 % (20.0-50.0) L 11/25/17 21:03 Monocytes % 10.8 % (2.0-10.0) H 11/25/17 21:03 Eosinophils % 0.9 % (0.0-5.0) 11/25/17 21:03 Basophils % 0.0 % (0.0-2.0) 11/25/17 21:03 Sodium 136 mEq/L (136-145) 11/25/17 21:03 Potassium 4.3 mEq/L (3.5-5.1) 11/25/17 21:03 Chloride 99 mEq/L (98-107) 11/25/17 21:03 Carbon Dioxide 34.2 mEq/L (21.0-31.0) H 11/25/17 21:03 Anion Gap 7.1 (7.0-16.0) 11/25/17 21:03 BUN 27 mg/dL (7-25) H 11/25/17 21:03 Creatinine 1.0 mg/dL (0.6-1.2) 11/25/17 21:03 Est GFR ( Amer) TNP 11/25/17 21:03 Est GFR (Non-Af Amer) TNP 11/25/17 21:03 BUN/Creatinine Ratio 27.0 11/25/17 21:03 Glucose 112 mg/dL (70-105) H 11/25/17 21:03 Calcium 9.1 mg/dL (8.6-10.3) 11/25/17 21:03 Total Bilirubin 0.2 mg/dL (0.3-1.0) L 11/25/17 21:03 AST 13 U/L (13-39) 11/25/17 21:03 ALT 7 U/L (7-52) 11/25/17 21:03 Alkaline Phosphatase 56 U/L (34-104) 11/25/17 21:03 Total Protein 6.1 gm/dL (6.0-8.3) 11/25/17 21:03 Albumin 3.6 gm/dL (3.7-5.3) L 11/25/17 21:03 Globulin 2.5 gm/dL 11/25/17 21:03 Albumin/Globulin Ratio 1.4 (1.0-1.8) 11/25/17 21:03 - Physical Exam Vitals and I&O: Vital Signs Temp 97.8 F 12/08/17 06:44 Pulse 64 12/08/17 09:07 Resp 18 12/08/17 06:44 BP 119/70 12/08/17 09:07 Pulse Ox 100 12/08/17 06:44 Intake & Output 12/07/17 12/08/17 12/08/17 18:59 06:59 18:59 Intake Total 1000 300 Balance 1000 300 Intake: Oral 1000 300 Other: # Voids 2 2 # Bowel Movements 0 Active Medications: Current Medications Acetaminophen (Tylenol) 650 mg PO Q6H PRN PRN Reason: Mild Pain/Headache/T above 101 Stop: 01/25/18 01:38 Last Admin: 12/02/17 22:20 Dose: 650 mg Acetaminophen/Hydrocodone Bitart ([place] 5mg/325mg) 1 tab PO Q6H PRN PRN Reason: Pain (Moderate) Stop: 01/25/18 01:55 Al Hydrox/Mg Hydrox/Simethicone (Maalox) 30 ml PO Q6H PRN PRN Reason: Dyspepsia Stop: 01/25/18 01:38 Dextromethorphan/Quinidine (Nuedexta 20mg-10mg) 1 cap PO BID [facility] Stop: 01/25/18 08:59 Last Admin: 12/08/17 09:06 Dose: 1 cap Divalproex Sodium (Depakote Dr) 250 mg PO TID JESS PRN Reason: Protocol Stop: 02/04/18 13:59 Last Admin: 12/08/17 13:03 Dose: 250 mg Lactobacillus Rhamnosus (Culturelle 15b) 1 each PO BID [facility] Stop: 01/25/18 08:59 Last Admin: 12/08/17 09:06 Dose: 1 each Levothyroxine Sodium (Synthroid) 0.05 mg PO QDAC [facility] Stop: 01/25/18 07:29 Last Admin: 12/08/17 06:48 Dose: Not Given Lorazepam (Ativan) 1 mg PO Q6H PRN; Protocol PRN Reason: Anxiety/Agitation Stop: 01/25/18 01:38 Last Admin: 12/06/17 08:53 Dose: 1 mg Losartan Potassium (Cozaar) 50 mg PO DAILY [facility] Stop: 01/25/18 08:59 Last Admin: 12/08/17 09:07 Dose: 50 mg Magnesium Hydroxide (Milk Of Magnesia) 30 ml PO HS PRN PRN Reason: Constipation Stop: 01/25/18 01:38 Risperidone (Risperdal) 1 mg PO BID JESS PRN Reason: Protocol Stop: 01/28/18 16:59 Last Admin: 12/08/17 09:06 Dose: 1 mg Zolpidem Tartrate (Ambien) 5 mg PO HS PRN PRN Reason: Insomnia Stop: 01/25/18 01:38 Last Admin: 12/06/17 21:40 Dose: 5 mg General: demented HEENT: NC/AT, PERRLA, EOMI Neck: Supple, No JVD, No LAD Lungs: CTAB Cardiovascular: RRR, Normal S1, Normal S2 Abdomen: soft, non-tender, thin Extremities: excoriation - Procedures Procedures: Procedures Procedure Code Date OTHER GROUP THERAPY 94.44 11/06/10 Internal Medicine Assmt/Plan - Assessment Assessment: htn hypothyroidism psychosis - Plan Plan: monitor bp , will adjust bp meds accordingly as needed fall precautions continue current orders Nutritional Asmnt/Malnutr-PDOC - Dietary Evaluation Malnutrition Findings (Please click <Entered> for more info): Nutritional Asmnt/Malnutrition Start: 12/01/17 17: 55 Text: Status: Complete Freq: Document 12/01/17 17:55 [facility] (Rec: 12/01/17 18:04 HEN [email or web address]) Nutritional Asmnt/Malnutrition Patient General Information Nutritional Screening Moderate Risk Diagnosis pscychosis Pertinent Medical Hx/Surgical Hx HTN, UTI, pscychosis, hypothyroidism Subjective Information Pt seen lying in bed during the time of visit, eating ice cream, confused, not able to comprehend. Family at bed side . Per notes, Po intake 75-100% , mostly 100%. Current Diet Order/ Nutrition Support mech soft chopped, boost 1 can TID Pertinent Medications culturelle, synthroid, remeron Pertinent Labs 11/25 BUN 27, Glucose 112, Alb 3.6 Nutritional Hx/Data Height 5 ft 4 in Height (Calculated Centimeters) 162.6 Current Weight (lbs) 145 lb Weight (Calculated Kilograms) 65.8 Weight (Calculated Grams) 23206.9 [place] Body Weight 120 % [place] Body Weight 120 Body Mass Index (BMI) 24.9 Weight Status Approriate GI Symptoms GI Symptoms None Last BM 11/30 Difficult in: None Skin Integrity/Comment: REDENDED TO BUTTOCKS Current %PO Good (75-100%) Estimated Nutritional Goals BEE in Kcals: Using Current wt Calories/Kcals/Kg 25-30 Kcals Calculated 2093-2637 Protein: Using Current wt Protein g/k Protein Calculated 66 Fluid: ml 1650-1980ml (1ml/kcal) Nutritional Problem No current Nutrition Prob Problem N/A Malnutrition Alert Protein-Calorie Malnutrition N/A Is there a minimum of two criteria No selected? Query Text:Check all the applicable criteria. A minimum of two criteria are recommended for diagnosis of either severe or non-severe malnutrition. Intervention/Recommendation Comments 1. Continue with current diet as ordered. Recommend d/c Boost TID d/t PO intake 75-100 % meeting 100% of nutritional needs 2. Monitor PO intake, wt, labs and skin integrity 3. F/U as low risk in 7 days, 12/08 Expected Outcomes/Goals Expected Outcomes/Goals 1. PO intake to meet at least 75% of nutritional needs. 2. Wt stability, skin to remain intact, labs to approach WNL.
--- NOTE | 2017-12-08 23:44 | Progress Notes ---
DATE: 12/08/2017 Staff was spoken to. The patient is interviewed. Mood is noted to be irritable. Affect is constricted. Coping skills are noted to be still poor. The patient is currently on Depakote 250 mg 3 times a day and Risperdal 1 mg twice a day. The patient has been able to tolerate the medications. No side effects to the medications are noted. ASSESSMENT: The patient is still impulsive and not able to contract for safety. PLAN: To continue patient with the supportive therapy and followup. JOB# [id number]
[2017-12-09] MEDS: Levothyroxine 0.05 Mg Tab PO SCH (06:35)
[2017-12-09] MEDS: Dextromethorphan/Quinidine 20mg/10mg Cap PO SCH ×3 (08:22→16:23)
[2017-12-09] MEDS: Multivitamin w/ Minerals Tab PO SCH (08:22)
[2017-12-09] MEDS: Lactobacillus Rhamnosus GG 15 Billion CFU CAP.SPRINK PO SCH ×3 (08:25→16:23)
--- NOTE | 2017-12-09 14:05 | Internal Medicine Prog Note ---
Internal Medicine Subjective - Subjective Service Date: 12/09/17 Patient is:: awake, verbal, non-interactive Per staff patient has:: no adverse event, no episodes of fall, poor appetite, noncompliant, tolerating meds Internal Medicine Objective - Results Result Diagrams: 11/25/17 21:03 11/25/17 21:03 Recent Labs: Laboratory Last Values WBC 9.1 Th/cmm (4.8-10.8) 11/25/17 21:03 RBC 4.23 Mil/cmm (3.80-5.20) 11/25/17 21:03 Hgb 12.2 gm/dL (12-16) 11/25/17 21:03 Hct 36.4 % (41.0-60) L 11/25/17 21:03 MCV 86.2 fl (81-100) 11/25/17 21:03 MCH 28.8 pg (27.0-31.0) 11/25/17 21:03 MCHC Differential 33.4 pg (28.0-36.0) 11/25/17 21:03 RDW 14.9 % (11.5-20.0) 11/25/17 21:03 Plt Count 220 Th/cmm (150-400) 11/25/17 21:03 MPV 8.0 fl 11/25/17 21:03 Neutrophils % 80.1 % (40.0-80.0) H 11/25/17 21:03 Lymphocytes % 8.2 % (20.0-50.0) L 11/25/17 21:03 Monocytes % 10.8 % (2.0-10.0) H 11/25/17 21:03 Eosinophils % 0.9 % (0.0-5.0) 11/25/17 21:03 Basophils % 0.0 % (0.0-2.0) 11/25/17 21:03 Sodium 136 mEq/L (136-145) 11/25/17 21:03 Potassium 4.3 mEq/L (3.5-5.1) 11/25/17 21:03 Chloride 99 mEq/L (98-107) 11/25/17 21:03 Carbon Dioxide 34.2 mEq/L (21.0-31.0) H 11/25/17 21:03 Anion Gap 7.1 (7.0-16.0) 11/25/17 21:03 BUN 27 mg/dL (7-25) H 11/25/17 21:03 Creatinine 1.0 mg/dL (0.6-1.2) 11/25/17 21:03 Est GFR ( Amer) TNP 11/25/17 21:03 Est GFR (Non-Af Amer) TNP 11/25/17 21:03 BUN/Creatinine Ratio 27.0 11/25/17 21:03 Glucose 112 mg/dL (70-105) H 11/25/17 21:03 Calcium 9.1 mg/dL (8.6-10.3) 11/25/17 21:03 Total Bilirubin 0.2 mg/dL (0.3-1.0) L 11/25/17 21:03 AST 13 U/L (13-39) 11/25/17 21:03 ALT 7 U/L (7-52) 11/25/17 21:03 Alkaline Phosphatase 56 U/L (34-104) 11/25/17 21:03 Total Protein 6.1 gm/dL (6.0-8.3) 11/25/17 21:03 Albumin 3.6 gm/dL (3.7-5.3) L 11/25/17 21:03 Globulin 2.5 gm/dL 11/25/17 21:03 Albumin/Globulin Ratio 1.4 (1.0-1.8) 11/25/17 21:03 Valproic Acid 50.9 ug/mL (50.0-100.0) 12/08/17 19:58 - Physical Exam Vitals and I&O: Vital Signs Temp 97.7 F 12/09/17 06:22 Pulse 65 12/09/17 08:22 Resp 19 12/09/17 06:22 BP 131/68 12/09/17 08:22 Pulse Ox 93 12/09/17 06:22 Intake & Output 12/08/17 12/09/17 12/09/17 18:59 06:59 18:59 Intake Total 310 Balance 310 Intake: Oral 310 Other: # Voids 1 # Bowel Movements 0 Active Medications: Current Medications Acetaminophen (Tylenol) 650 mg PO Q6H PRN PRN Reason: Mild Pain/Headache/T above 101 Stop: 01/25/18 01:38 Last Admin: 12/02/17 22:20 Dose: 650 mg Acetaminophen/Hydrocodone Bitart ([place] 5mg/325mg) 1 tab PO Q6H PRN PRN Reason: Pain (Moderate) Stop: 01/25/18 01:55 Al Hydrox/Mg Hydrox/Simethicone (Maalox) 30 ml PO Q6H PRN PRN Reason: Dyspepsia Stop: 01/25/18 01:38 Dextromethorphan/Quinidine (Nuedexta 20mg-10mg) 1 cap PO BID [facility] Stop: 01/25/18 08:59 Last Admin: 12/09/17 08:26 Dose: 1 cap Divalproex Sodium (Depakote Dr) 250 mg PO TID JESS PRN Reason: Protocol Stop: 02/04/18 13:59 Last Admin: 12/09/17 13:17 Dose: 250 mg Lactobacillus Rhamnosus (Culturelle 15b) 1 each PO BID [facility] Stop: 01/25/18 08:59 Last Admin: 12/09/17 08:26 Dose: 1 each Levothyroxine Sodium (Synthroid) 0.05 mg PO QDAC [facility] Stop: 01/25/18 07:29 Last Admin: 12/09/17 06:35 Dose: Not Given Lorazepam (Ativan) 1 mg PO Q6H PRN; Protocol PRN Reason: Anxiety/Agitation Stop: 01/25/18 01:38 Last Admin: 12/06/17 08:53 Dose: 1 mg Losartan Potassium (Cozaar) 50 mg PO DAILY [facility] Stop: 01/25/18 08:59 Last Admin: 12/09/17 08:22 Dose: 50 mg Magnesium Hydroxide (Milk Of Magnesia) 30 ml PO HS PRN PRN Reason: Constipation Stop: 01/25/18 01:38 Risperidone (Risperdal) 1 mg PO BID JESS PRN Reason: Protocol Stop: 01/28/18 16:59 Last Admin: 12/09/17 08:26 Dose: 1 mg Zolpidem Tartrate (Ambien) 5 mg PO HS PRN PRN Reason: Insomnia Stop: 01/25/18 01:38 Last Admin: 12/06/17 21:40 Dose: 5 mg General: demented HEENT: NC/AT, PERRLA, EOMI Neck: Supple, No JVD, No LAD Lungs: CTAB Cardiovascular: RRR, Normal S1, Normal S2 Abdomen: soft, non-tender, thin Extremities: excoriation - Procedures Procedures: Procedures Procedure Code Date OTHER GROUP THERAPY 94.44 11/06/10 Internal Medicine Assmt/Plan - Assessment Assessment: htn hypothyroidism psychosis - Plan Plan: monitor bp , will adjust bp meds accordingly as needed fall precautions continue current orders Nutritional Asmnt/Malnutr-PDOC - Dietary Evaluation Malnutrition Findings (Please click <Entered> for more info): Nutritional Asmnt/Malnutrition Start: 12/01/17 17: 55 Text: Status: Complete Freq: Document 12/01/17 17:55 NEYMAR (Rec: 12/01/17 18:04 LCHENG [email or web address]) Nutritional Asmnt/Malnutrition Patient General Information Nutritional Screening Moderate Risk Diagnosis pscychosis Pertinent Medical Hx/Surgical Hx HTN, UTI, pscychosis, hypothyroidism Subjective Information Pt seen lying in bed during the time of visit, eating ice cream, confused, not able to comprehend. Family at bed side . Per notes, Po intake 75-100% , mostly 100%. Current Diet Order/ [facility], boost 1 can TID Pertinent Medications culturelle, synthroid, remeron Pertinent Labs 11/25 BUN 27, Glucose 112, Alb 3.6 Nutritional Hx/Data Height 5 ft 4 in Height (Calculated Centimeters) 162.6 Current Weight (lbs) 145 lb Weight (Calculated Kilograms) 65.8 Weight (Calculated Grams) 33808.9 [place] Body Weight 120 % [place] Body Weight 120 Body Mass Index (BMI) 24.9 Weight Status Approriate GI Symptoms GI Symptoms None Last BM 11/30 Difficult in: None Skin Integrity/Comment: REDENDED TO BUTTOCKS Current %PO Good (75-100%) Estimated Nutritional Goals BEE in Kcals: Using Current wt Calories/Kcals/Kg 25-30 Kcals Calculated 4645-2218 Protein: Using Current wt Protein g/k Protein Calculated 66 Fluid: ml 1650-1980ml (1ml/kcal) Nutritional Problem No current Nutrition Prob Problem N/A Malnutrition Alert Protein-Calorie Malnutrition N/A Is there a minimum of two criteria No selected? Query Text:Check all the applicable criteria. A minimum of two criteria are recommended for diagnosis of either severe or non-severe malnutrition. Intervention/Recommendation Comments 1. Continue with current diet as ordered. Recommend d/c Boost TID d/t PO intake 75-100 % meeting 100% of nutritional needs 2. Monitor PO intake, wt, labs and skin integrity 3. F/U as low risk in 7 days, 12/08 Expected Outcomes/Goals Expected Outcomes/Goals 1. PO intake to meet at least 75% of nutritional needs. 2. Wt stability, skin to remain intact, labs to approach WNL.
--- NOTE | 2017-12-09 19:00 | Progress Notes ---
DATE: 12/09/2017 SUBJECTIVE: The patient has been isolative and withdrawn today. He has been reluctant to participate in any of the groups. The patient is currently on Risperdal 1 mg twice a day, valproic acid 250 mg 3 times a day, and the patient has been able to tolerate, mood swings are coming under control. No side effects to the medications are noted. ASSESSMENT: The patient is still impulsive. PLAN: To continue the patient with the supportive therapy and I encouraged the patient to verbalize the concerns rather than to act out. JOB# [id number]
[2017-12-10] MEDS: Levothyroxine 0.05 Mg Tab PO SCH (07:01)
[2017-12-10] MEDS: Multivitamin w/ Minerals Tab PO SCH (09:00)
[2017-12-10] MEDS: Dextromethorphan/Quinidine 20mg/10mg Cap PO SCH ×2 (09:01→16:02)
[2017-12-10] MEDS: Lactobacillus Rhamnosus GG 15 Billion CFU CAP.SPRINK PO SCH ×2 (09:01→16:02)
--- NOTE | 2017-12-10 13:32 | Internal Medicine Prog Note ---
Internal Medicine Subjective - Subjective Service Date: 12/10/17 Patient is:: awake, verbal, non-interactive Per staff patient has:: no adverse event, no episodes of fall, poor appetite, noncompliant, tolerating meds Internal Medicine Objective - Results Result Diagrams: 11/25/17 21:03 11/25/17 21:03 Recent Labs: Laboratory Last Values WBC 9.1 Th/cmm (4.8-10.8) 11/25/17 21:03 RBC 4.23 Mil/cmm (3.80-5.20) 11/25/17 21:03 Hgb 12.2 gm/dL (12-16) 11/25/17 21:03 Hct 36.4 % (41.0-60) L 11/25/17 21:03 MCV 86.2 fl (81-100) 11/25/17 21:03 MCH 28.8 pg (27.0-31.0) 11/25/17 21:03 MCHC Differential 33.4 pg (28.0-36.0) 11/25/17 21:03 RDW 14.9 % (11.5-20.0) 11/25/17 21:03 Plt Count 220 Th/cmm (150-400) 11/25/17 21:03 MPV 8.0 fl 11/25/17 21:03 Neutrophils % 80.1 % (40.0-80.0) H 11/25/17 21:03 Lymphocytes % 8.2 % (20.0-50.0) L 11/25/17 21:03 Monocytes % 10.8 % (2.0-10.0) H 11/25/17 21:03 Eosinophils % 0.9 % (0.0-5.0) 11/25/17 21:03 Basophils % 0.0 % (0.0-2.0) 11/25/17 21:03 Sodium 136 mEq/L (136-145) 11/25/17 21:03 Potassium 4.3 mEq/L (3.5-5.1) 11/25/17 21:03 Chloride 99 mEq/L (98-107) 11/25/17 21:03 Carbon Dioxide 34.2 mEq/L (21.0-31.0) H 11/25/17 21:03 Anion Gap 7.1 (7.0-16.0) 11/25/17 21:03 BUN 27 mg/dL (7-25) H 11/25/17 21:03 Creatinine 1.0 mg/dL (0.6-1.2) 11/25/17 21:03 Est GFR ( Amer) TNP 11/25/17 21:03 Est GFR (Non-Af Amer) TNP 11/25/17 21:03 BUN/Creatinine Ratio 27.0 11/25/17 21:03 Glucose 112 mg/dL (70-105) H 11/25/17 21:03 Calcium 9.1 mg/dL (8.6-10.3) 11/25/17 21:03 Total Bilirubin 0.2 mg/dL (0.3-1.0) L 11/25/17 21:03 AST 13 U/L (13-39) 11/25/17 21:03 ALT 7 U/L (7-52) 11/25/17 21:03 Alkaline Phosphatase 56 U/L (34-104) 11/25/17 21:03 Total Protein 6.1 gm/dL (6.0-8.3) 11/25/17 21:03 Albumin 3.6 gm/dL (3.7-5.3) L 11/25/17 21:03 Globulin 2.5 gm/dL 11/25/17 21:03 Albumin/Globulin Ratio 1.4 (1.0-1.8) 11/25/17 21:03 Valproic Acid 50.9 ug/mL (50.0-100.0) 12/08/17 19:58 - Physical Exam Vitals and I&O: Vital Signs Temp 98.8 F 12/10/17 06:34 Pulse 72 12/10/17 09:01 Resp 20 12/10/17 06:34 BP 137/70 12/10/17 09:01 Pulse Ox 98 12/10/17 06:34 Intake & Output 12/09/17 12/10/17 12/10/17 18:59 06:59 18:59 Intake Total 800 120 Balance 800 120 Intake: Oral 800 120 Other: # Voids 3 3 # Bowel Movements 1 Active Medications: Current Medications Acetaminophen (Tylenol) 650 mg PO Q6H PRN PRN Reason: Mild Pain/Headache/T above 101 Stop: 01/25/18 01:38 Last Admin: 12/02/17 22:20 Dose: 650 mg Acetaminophen/Hydrocodone Bitart ([place] 5mg/325mg) 1 tab PO Q6H PRN PRN Reason: Pain (Moderate) Stop: 01/25/18 01:55 Al Hydrox/Mg Hydrox/Simethicone (Maalox) 30 ml PO Q6H PRN PRN Reason: Dyspepsia Stop: 01/25/18 01:38 Dextromethorphan/Quinidine (Nuedexta 20mg-10mg) 1 cap PO BID [facility] Stop: 01/25/18 08:59 Last Admin: 12/10/17 09:01 Dose: 1 cap Divalproex Sodium (Depakote Dr) 250 mg PO TID JESS PRN Reason: Protocol Stop: 02/04/18 13:59 Last Admin: 12/10/17 13:19 Dose: 250 mg Lactobacillus Rhamnosus (Culturelle 15b) 1 each PO BID JESS Stop: 01/25/18 08:59 Last Admin: 12/10/17 09:01 Dose: 1 each Levothyroxine Sodium (Synthroid) 0.05 mg PO QDAC [facility] Stop: 01/25/18 07:29 Last Admin: 12/10/17 07:01 Dose: Not Given Lorazepam (Ativan) 1 mg PO Q6H PRN; Protocol PRN Reason: Anxiety/Agitation Stop: 01/25/18 01:38 Last Admin: 12/06/17 08:53 Dose: 1 mg Losartan Potassium (Cozaar) 50 mg PO DAILY [facility] Stop: 01/25/18 08:59 Last Admin: 12/10/17 09:01 Dose: 50 mg Magnesium Hydroxide (Milk Of Magnesia) 30 ml PO HS PRN PRN Reason: Constipation Stop: 01/25/18 01:38 Risperidone (Risperdal) 1 mg PO BID JESS PRN Reason: Protocol Stop: 01/28/18 16:59 Last Admin: 12/10/17 09:00 Dose: 1 mg Zolpidem Tartrate (Ambien) 5 mg PO HS PRN PRN Reason: Insomnia Stop: 01/25/18 01:38 Last Admin: 12/06/17 21:40 Dose: 5 mg General: demented HEENT: NC/AT, PERRLA, EOMI Neck: Supple, No JVD, No LAD Lungs: CTAB Cardiovascular: RRR, Normal S1, Normal S2 Abdomen: soft, non-tender, thin Extremities: excoriation - Procedures Procedures: Procedures Procedure Code Date OTHER GROUP THERAPY 94.44 11/06/10 Internal Medicine Assmt/Plan - Assessment Assessment: htn hypothyroidism psychosis - Plan Plan: monitor bp , will adjust bp meds accordingly as needed fall precautions continue current orders Nutritional Asmnt/Malnutr-PDOC - Dietary Evaluation Malnutrition Findings (Please click <Entered> for more info): Nutritional Asmnt/Malnutrition Start: 12/01/17 17: 55 Text: Status: Complete Freq: Document 12/01/17 17:55 LCNEYMARG (Rec: 12/01/17 18:04 LCNEYMARG [email or web address]) Nutritional Asmnt/Malnutrition Patient General Information Nutritional Screening Moderate Risk Diagnosis pscychosis Pertinent Medical Hx/Surgical Hx HTN, UTI, pscychosis, hypothyroidism Subjective Information Pt seen lying in bed during the time of visit, eating ice cream, confused, not able to comprehend. Family at bed side . Per notes, Po intake 75-100% , mostly 100%. Current Diet Order/ [facility], boost 1 can TID Pertinent Medications culturelle, synthroid, remeron Pertinent Labs 11/25 BUN 27, Glucose 112, Alb 3.6 Nutritional Hx/Data Height 5 ft 4 in Height (Calculated Centimeters) 162.6 Current Weight (lbs) 145 lb Weight (Calculated Kilograms) 65.8 Weight (Calculated Grams) 45946.9 [place] Body Weight 120 % [place] Body Weight 120 Body Mass Index (BMI) 24.9 Weight Status Approriate GI Symptoms GI Symptoms None Last BM 11/30 Difficult in: None Skin Integrity/Comment: REDENDED TO BUTTOCKS Current %PO Good (75-100%) Estimated Nutritional Goals BEE in Kcals: Using Current wt Calories/Kcals/Kg 25-30 Kcals Calculated 9771-1323 Protein: Using Current wt Protein g/k Protein Calculated 66 Fluid: ml 1650-1980ml (1ml/kcal) Nutritional Problem No current Nutrition Prob Problem N/A Malnutrition Alert Protein-Calorie Malnutrition N/A Is there a minimum of two criteria No selected? Query Text:Check all the applicable criteria. A minimum of two criteria are recommended for diagnosis of either severe or non-severe malnutrition. Intervention/Recommendation Comments 1. Continue with current diet as ordered. Recommend d/c Boost TID d/t PO intake 75-100 % meeting 100% of nutritional needs 2. Monitor PO intake, wt, labs and skin integrity 3. F/U as low risk in 7 days, 12/08 Expected Outcomes/Goals Expected Outcomes/Goals 1. PO intake to meet at least 75% of nutritional needs. 2. Wt stability, skin to remain intact, labs to approach WNL.
--- NOTE | 2017-12-10 23:06 | Progress Notes ---
DATE: 12/10/2017 SUBJECTIVE: Staff was spoken to. The patient is interviewed. Mood is noted to be irritable. Affect is constricted. Insight and judgment at this time are noted to be very much impaired. Impulse control is noted to be poor. Coping skills are also noted to be very poor. The patient has been pacing most of the time. The patient has been able to tolerate the Depakote and Risperdal. ASSESSMENT: The patient is still grossly psychotic. PLAN: Continue the patient with the supportive therapy and followup. JOB# [id number]
[2017-12-11] MEDS: Levothyroxine 0.05 Mg Tab PO SCH (06:37)
[2017-12-11] MEDS: Lactobacillus Rhamnosus GG 15 Billion CFU CAP.SPRINK PO SCH ×2 (09:02→16:23)
[2017-12-11] MEDS: Dextromethorphan/Quinidine 20mg/10mg Cap PO SCH ×2 (09:02→16:23)
[2017-12-11] MEDS: Multivitamin w/ Minerals Tab PO SCH (09:02)
--- NOTE | 2017-12-11 11:47 | Progress Notes ---
DATE: 12/11/2017 SUBJECTIVE: Staff was spoken to. The patient is interviewed. Mood is noted to be less irritable. Affect is appropriate. The patient's mood swings are coming under control. No side effects to the medications are noted. ASSESSMENT: The patient is still impulsive, but could redirectable. PLAN: To continue the patient with supportive therapy and followup. JOB# [id number]
--- NOTE | 2017-12-11 15:02 | Internal Medicine Prog Note ---
Internal Medicine Subjective - Subjective Service Date: 12/11/17 Patient is:: awake, verbal, non-interactive Per staff patient has:: no adverse event, no episodes of fall, poor appetite, noncompliant, tolerating meds Internal Medicine Objective - Results Result Diagrams: 11/25/17 21:03 11/25/17 21:03 Recent Labs: Laboratory Last Values WBC 9.1 Th/cmm (4.8-10.8) 11/25/17 21:03 RBC 4.23 Mil/cmm (3.80-5.20) 11/25/17 21:03 Hgb 12.2 gm/dL (12-16) 11/25/17 21:03 Hct 36.4 % (41.0-60) L 11/25/17 21:03 MCV 86.2 fl (81-100) 11/25/17 21:03 MCH 28.8 pg (27.0-31.0) 11/25/17 21:03 MCHC Differential 33.4 pg (28.0-36.0) 11/25/17 21:03 RDW 14.9 % (11.5-20.0) 11/25/17 21:03 Plt Count 220 Th/cmm (150-400) 11/25/17 21:03 MPV 8.0 fl 11/25/17 21:03 Neutrophils % 80.1 % (40.0-80.0) H 11/25/17 21:03 Lymphocytes % 8.2 % (20.0-50.0) L 11/25/17 21:03 Monocytes % 10.8 % (2.0-10.0) H 11/25/17 21:03 Eosinophils % 0.9 % (0.0-5.0) 11/25/17 21:03 Basophils % 0.0 % (0.0-2.0) 11/25/17 21:03 Sodium 136 mEq/L (136-145) 11/25/17 21:03 Potassium 4.3 mEq/L (3.5-5.1) 11/25/17 21:03 Chloride 99 mEq/L (98-107) 11/25/17 21:03 Carbon Dioxide 34.2 mEq/L (21.0-31.0) H 11/25/17 21:03 Anion Gap 7.1 (7.0-16.0) 11/25/17 21:03 BUN 27 mg/dL (7-25) H 11/25/17 21:03 Creatinine 1.0 mg/dL (0.6-1.2) 11/25/17 21:03 Est GFR ( Amer) TNP 11/25/17 21:03 Est GFR (Non-Af Amer) TNP 11/25/17 21:03 BUN/Creatinine Ratio 27.0 11/25/17 21:03 Glucose 112 mg/dL (70-105) H 11/25/17 21:03 Calcium 9.1 mg/dL (8.6-10.3) 11/25/17 21:03 Total Bilirubin 0.2 mg/dL (0.3-1.0) L 11/25/17 21:03 AST 13 U/L (13-39) 11/25/17 21:03 ALT 7 U/L (7-52) 11/25/17 21:03 Alkaline Phosphatase 56 U/L (34-104) 11/25/17 21:03 Total Protein 6.1 gm/dL (6.0-8.3) 11/25/17 21:03 Albumin 3.6 gm/dL (3.7-5.3) L 11/25/17 21:03 Globulin 2.5 gm/dL 11/25/17 21:03 Albumin/Globulin Ratio 1.4 (1.0-1.8) 11/25/17 21:03 Valproic Acid 50.9 ug/mL (50.0-100.0) 12/08/17 19:58 - Physical Exam Vitals and I&O: Vital Signs Temp 97.6 F 12/10/17 14:00 Pulse 69 12/11/17 09:02 Resp 20 12/10/17 14:00 BP 115/64 12/11/17 09:02 Pulse Ox 97 12/10/17 14:00 Intake & Output 12/10/17 12/11/17 12/11/17 18:59 06:59 18:59 Intake Total 1000 Balance 1000 Intake: Oral 1000 Other: # Voids 3 # Bowel Movements 0 Active Medications: Current Medications Acetaminophen (Tylenol) 650 mg PO Q6H PRN PRN Reason: Mild Pain/Headache/T above 101 Stop: 01/25/18 01:38 Last Admin: 12/02/17 22:20 Dose: 650 mg Acetaminophen/Hydrocodone Bitart ([place] 5mg/325mg) 1 tab PO Q6H PRN PRN Reason: Pain (Moderate) Stop: 01/25/18 01:55 Al Hydrox/Mg Hydrox/Simethicone (Maalox) 30 ml PO Q6H PRN PRN Reason: Dyspepsia Stop: 01/25/18 01:38 Dextromethorphan/Quinidine (Nuedexta 20mg-10mg) 1 cap PO BID [facility] Stop: 01/25/18 08:59 Last Admin: 12/11/17 09:02 Dose: 1 cap Divalproex Sodium (Depakote Dr) 250 mg PO TID JESS PRN Reason: Protocol Stop: 02/04/18 13:59 Last Admin: 12/11/17 09:02 Dose: 250 mg Lactobacillus Rhamnosus (Culturelle 15b) 1 each PO BID J[facility] Stop: 01/25/18 08:59 Last Admin: 12/11/17 09:02 Dose: 1 each Levothyroxine Sodium (Synthroid) 0.05 mg PO QDAC JESS Stop: 01/25/18 07:29 Last Admin: 12/11/17 06:37 Dose: 0.05 mg Lorazepam (Ativan) 1 mg PO Q6H PRN; Protocol PRN Reason: Anxiety/Agitation Stop: 01/25/18 01:38 Last Admin: 12/06/17 08:53 Dose: 1 mg Losartan Potassium (Cozaar) 50 mg PO DAILY JESS Stop: 01/25/18 08:59 Last Admin: 12/11/17 09:02 Dose: 50 mg Magnesium Hydroxide (Milk Of Magnesia) 30 ml PO HS PRN PRN Reason: Constipation Stop: 01/25/18 01:38 Risperidone (Risperdal) 1 mg PO BID JESS PRN Reason: Protocol Stop: 01/28/18 16:59 Last Admin: 12/11/17 09:02 Dose: 1 mg Zolpidem Tartrate (Ambien) 5 mg PO HS PRN PRN Reason: Insomnia Stop: 01/25/18 01:38 Last Admin: 12/06/17 21:40 Dose: 5 mg General: demented HEENT: NC/AT, PERRLA, EOMI Neck: Supple, No JVD, No LAD Lungs: CTAB Cardiovascular: RRR, Normal S1, Normal S2 Abdomen: soft, non-tender, thin Extremities: excoriation - Procedures Procedures: Procedures Procedure Code Date OTHER GROUP THERAPY 94.44 11/06/10 Internal Medicine Assmt/Plan - Assessment Assessment: htn hypothyroidism psychosis - Plan Plan: monitor bp , will adjust bp meds accordingly as needed fall precautions continue current orders Nutritional Asmnt/Malnutr-PDOC - Dietary Evaluation Malnutrition Findings (Please click <Entered> for more info): Nutritional Asmnt/Malnutrition Start: 12/01/17 17: 55 Text: Status: Complete Freq: Document 12/01/17 17:55 LCNEYMARG (Rec: 12/01/17 18:04 LCNEYMARG [email or web address]) Nutritional Asmnt/Malnutrition Patient General Information Nutritional Screening Moderate Risk Diagnosis pscychosis Pertinent Medical Hx/Surgical Hx HTN, UTI, pscychosis, hypothyroidism Subjective Information Pt seen lying in bed during the time of visit, eating ice cream, confused, not able to comprehend. Family at bed side . Per notes, Po intake 75-100% , mostly 100%. Current Diet Order/ [facility], boost 1 can TID Pertinent Medications culturelle, synthroid, remeron Pertinent Labs 11/25 BUN 27, Glucose 112, Alb 3.6 Nutritional Hx/Data Height 5 ft 4 in Height (Calculated Centimeters) 162.6 Current Weight (lbs) 145 lb Weight (Calculated Kilograms) 65.8 Weight (Calculated Grams) 93490.9 [place] Body Weight 120 % [place] Body Weight 120 Body Mass Index (BMI) 24.9 Weight Status Approriate GI Symptoms GI Symptoms None Last BM 11/30 Difficult in: None Skin Integrity/Comment: REDENDED TO BUTTOCKS Current %PO Good (75-100%) Estimated Nutritional Goals BEE in Kcals: Using Current wt Calories/Kcals/Kg 25-30 Kcals Calculated 3602-0901 Protein: Using Current wt Protein g/k Protein Calculated 66 Fluid: ml 1650-1980ml (1ml/kcal) Nutritional Problem No current Nutrition Prob Problem N/A Malnutrition Alert Protein-Calorie Malnutrition N/A Is there a minimum of two criteria No selected? Query Text:Check all the applicable criteria. A minimum of two criteria are recommended for diagnosis of either severe or non-severe malnutrition. Intervention/Recommendation Comments 1. Continue with current diet as ordered. Recommend d/c Boost TID d/t PO intake 75-100 % meeting 100% of nutritional needs 2. Monitor PO intake, wt, labs and skin integrity 3. F/U as low risk in 7 days, 12/08 Expected Outcomes/Goals Expected Outcomes/Goals 1. PO intake to meet at least 75% of nutritional needs. 2. Wt stability, skin to remain intact, labs to approach WNL.
[2017-12-12] MEDS: Levothyroxine 0.05 Mg Tab PO SCH (06:51)
[2017-12-12] MEDS: Multivitamin w/ Minerals Tab PO SCH (09:59)
[2017-12-12] MEDS: Dextromethorphan/Quinidine 20mg/10mg Cap PO SCH ×2 (09:59→17:47)
[2017-12-12] MEDS: Lactobacillus Rhamnosus GG 15 Billion CFU CAP.SPRINK PO SCH ×2 (09:59→17:47)
--- NOTE | 2017-12-12 16:44 | Internal Medicine Prog Note ---
Internal Medicine Subjective - Subjective Service Date: 12/12/17 Patient is:: awake, verbal, non-interactive Per staff patient has:: no adverse event, no episodes of fall, poor appetite, noncompliant, tolerating meds Internal Medicine Objective - Results Result Diagrams: 11/25/17 21:03 11/25/17 21:03 Recent Labs: Laboratory Last Values WBC 9.1 Th/cmm (4.8-10.8) 11/25/17 21:03 RBC 4.23 Mil/cmm (3.80-5.20) 11/25/17 21:03 Hgb 12.2 gm/dL (12-16) 11/25/17 21:03 Hct 36.4 % (41.0-60) L 11/25/17 21:03 MCV 86.2 fl (81-100) 11/25/17 21:03 MCH 28.8 pg (27.0-31.0) 11/25/17 21:03 MCHC Differential 33.4 pg (28.0-36.0) 11/25/17 21:03 RDW 14.9 % (11.5-20.0) 11/25/17 21:03 Plt Count 220 Th/cmm (150-400) 11/25/17 21:03 MPV 8.0 fl 11/25/17 21:03 Neutrophils % 80.1 % (40.0-80.0) H 11/25/17 21:03 Lymphocytes % 8.2 % (20.0-50.0) L 11/25/17 21:03 Monocytes % 10.8 % (2.0-10.0) H 11/25/17 21:03 Eosinophils % 0.9 % (0.0-5.0) 11/25/17 21:03 Basophils % 0.0 % (0.0-2.0) 11/25/17 21:03 Sodium 136 mEq/L (136-145) 11/25/17 21:03 Potassium 4.3 mEq/L (3.5-5.1) 11/25/17 21:03 Chloride 99 mEq/L (98-107) 11/25/17 21:03 Carbon Dioxide 34.2 mEq/L (21.0-31.0) H 11/25/17 21:03 Anion Gap 7.1 (7.0-16.0) 11/25/17 21:03 BUN 27 mg/dL (7-25) H 11/25/17 21:03 Creatinine 1.0 mg/dL (0.6-1.2) 11/25/17 21:03 Est GFR ( Amer) TNP 11/25/17 21:03 Est GFR (Non-Af Amer) TNP 11/25/17 21:03 BUN/Creatinine Ratio 27.0 11/25/17 21:03 Glucose 112 mg/dL (70-105) H 11/25/17 21:03 Calcium 9.1 mg/dL (8.6-10.3) 11/25/17 21:03 Total Bilirubin 0.2 mg/dL (0.3-1.0) L 11/25/17 21:03 AST 13 U/L (13-39) 11/25/17 21:03 ALT 7 U/L (7-52) 11/25/17 21:03 Alkaline Phosphatase 56 U/L (34-104) 11/25/17 21:03 Total Protein 6.1 gm/dL (6.0-8.3) 11/25/17 21:03 Albumin 3.6 gm/dL (3.7-5.3) L 11/25/17 21:03 Globulin 2.5 gm/dL 11/25/17 21:03 Albumin/Globulin Ratio 1.4 (1.0-1.8) 11/25/17 21:03 Valproic Acid 50.9 ug/mL (50.0-100.0) 12/08/17 19:58 - Physical Exam Vitals and I&O: Vital Signs Temp 98.0 F 12/12/17 15:44 Pulse 81 12/12/17 15:44 Resp 18 12/12/17 15:44 BP 108/57 12/12/17 15:44 Pulse Ox 97 12/12/17 15:44 Intake & Output 12/11/17 12/12/17 12/12/17 18:59 06:59 18:59 Intake Total 1200 240 Balance 1200 240 Intake: Oral 1200 240 Other: # Voids 2 1 Active Medications: Current Medications Acetaminophen (Tylenol) 650 mg PO Q6H PRN PRN Reason: Mild Pain/Headache/T above 101 Stop: 01/25/18 01:38 Last Admin: 12/02/17 22:20 Dose: 650 mg Acetaminophen/Hydrocodone Bitart ([place] 5mg/325mg) 1 tab PO Q6H PRN PRN Reason: Pain (Moderate) Stop: 01/25/18 01:55 Al Hydrox/Mg Hydrox/Simethicone (Maalox) 30 ml PO Q6H PRN PRN Reason: Dyspepsia Stop: 01/25/18 01:38 Dextromethorphan/Quinidine (Nuedexta 20mg-10mg) 1 cap PO BID JESS Stop: 01/25/18 08:59 Last Admin: 12/12/17 09:59 Dose: 1 cap Divalproex Sodium (Depakote Dr) 250 mg PO TID JESS PRN Reason: Protocol Stop: 02/04/18 13:59 Last Admin: 12/12/17 14:46 Dose: 250 mg Lactobacillus Rhamnosus (Culturelle 15b) 1 each PO BID JESS Stop: 01/25/18 08:59 Last Admin: 12/12/17 09:59 Dose: 1 each Levothyroxine Sodium (Synthroid) 0.05 mg PO QDAC JESS Stop: 01/25/18 07:29 Last Admin: 12/12/17 06:51 Dose: 0.05 mg Lorazepam (Ativan) 1 mg PO Q6H PRN; Protocol PRN Reason: Anxiety/Agitation Stop: 01/25/18 01:38 Last Admin: 12/06/17 08:53 Dose: 1 mg Losartan Potassium (Cozaar) 50 mg PO DAILY JESS Stop: 01/25/18 08:59 Last Admin: 12/12/17 09:59 Dose: 50 mg Magnesium Hydroxide (Milk Of Magnesia) 30 ml PO HS PRN PRN Reason: Constipation Stop: 01/25/18 01:38 Risperidone (Risperdal) 1 mg PO BID JESS PRN Reason: Protocol Stop: 01/28/18 16:59 Last Admin: 12/12/17 09:59 Dose: 1 mg Zolpidem Tartrate (Ambien) 5 mg PO HS PRN PRN Reason: Insomnia Stop: 01/25/18 01:38 Last Admin: 12/06/17 21:40 Dose: 5 mg General: demented HEENT: NC/AT, PERRLA, EOMI Neck: Supple, No JVD, No LAD Lungs: CTAB Cardiovascular: RRR, Normal S1, Normal S2 Abdomen: soft, non-tender, thin Extremities: excoriation - Procedures Procedures: Procedures Procedure Code Date OTHER GROUP THERAPY 94.44 11/06/10 Internal Medicine Assmt/Plan - Assessment Assessment: htn hypothyroidism psychosis - Plan Plan: monitor bp , will adjust bp meds accordingly as needed fall precautions continue current orders Nutritional Asmnt/Malnutr-PDOC - Dietary Evaluation Malnutrition Findings (Please click <Entered> for more info): Nutritional Asmnt/Malnutrition Start: 12/01/17 17: 55 Text: Status: Complete Freq: Document 12/01/17 17:55 LCNEYMARG (Rec: 12/01/17 18:04 [email or web address]) Nutritional Asmnt/Malnutrition Patient General Information Nutritional Screening Moderate Risk Diagnosis pscychosis Pertinent Medical Hx/Surgical Hx HTN, UTI, pscychosis, hypothyroidism Subjective Information Pt seen lying in bed during the time of visit, eating ice cream, confused, not able to comprehend. Family at bed side . Per notes, Po intake 75-100% , mostly 100%. Current Diet Order/ [facility], boost 1 can TID Pertinent Medications culturelle, synthroid, remeron Pertinent Labs 11/25 BUN 27, Glucose 112, Alb 3.6 Nutritional Hx/Data Height 5 ft 4 in Height (Calculated Centimeters) 162.6 Current Weight (lbs) 145 lb Weight (Calculated Kilograms) 65.8 Weight (Calculated Grams) 05026.9 [place] Body Weight 120 % [place] Body Weight 120 Body Mass Index (BMI) 24.9 Weight Status Approriate GI Symptoms GI Symptoms None Last BM 11/30 Difficult in: None Skin Integrity/Comment: REDENDED TO BUTTOCKS Current %PO Good (75-100%) Estimated Nutritional Goals BEE in Kcals: Using Current wt Calories/Kcals/Kg 25-30 Kcals Calculated 4684-5226 Protein: Using Current wt Protein g/k Protein Calculated 66 Fluid: ml 1650-1980ml (1ml/kcal) Nutritional Problem No current Nutrition Prob Problem N/A Malnutrition Alert Protein-Calorie Malnutrition N/A Is there a minimum of two criteria No selected? Query Text:Check all the applicable criteria. A minimum of two criteria are recommended for diagnosis of either severe or non-severe malnutrition. Intervention/Recommendation Comments 1. Continue with current diet as ordered. Recommend d/c Boost TID d/t PO intake 75-100 % meeting 100% of nutritional needs 2. Monitor PO intake, wt, labs and skin integrity 3. F/U as low risk in 7 days, 12/08 Expected Outcomes/Goals Expected Outcomes/Goals 1. PO intake to meet at least 75% of nutritional needs. 2. Wt stability, skin to remain intact, labs to approach WNL.
--- NOTE | 2017-12-12 17:37 | Progress Notes ---
DATE: 12/12/2017 SUBJECTIVE: Staff was spoken to. The patient is interviewed. Mood is noted to be irritable. Affect is constricted. Coping skills are noted to be poor at this time. The patient is isolative and withdrawn. The patient's irritability and argumentative behavior has been coming down. No side effects to the medications are noted. No major behavioral problems are reported today. The patient is currently on 250 mg twice a day of the Depakote and also receiving the Risperdal 1 mg twice a day. ASSESSMENT: The patient's impulsivity is coming under control. PLAN: To continue the patient with the supportive therapy, encouraged the patient to verbalize the concerns rather than to act out. [facility]# [id number]
[2017-12-13] MEDS: Levothyroxine 0.05 Mg Tab PO SCH (06:40)
[2017-12-13] MEDS: Lactobacillus Rhamnosus GG 15 Billion CFU CAP.SPRINK PO SCH ×2 (08:06→17:29)
[2017-12-13] MEDS: Multivitamin w/ Minerals Tab PO SCH (08:06)
[2017-12-13] MEDS: Dextromethorphan/Quinidine 20mg/10mg Cap PO SCH ×2 (08:06→17:29)
--- NOTE | 2017-12-13 13:29 | Internal Medicine Prog Note ---
Internal Medicine Subjective - Subjective Service Date: 12/13/17 Patient is:: awake, verbal, non-interactive Per staff patient has:: no adverse event, no episodes of fall, poor appetite, noncompliant, tolerating meds Internal Medicine Objective - Results Result Diagrams: 11/25/17 21:03 11/25/17 21:03 Recent Labs: Laboratory Last Values WBC 9.1 Th/cmm (4.8-10.8) 11/25/17 21:03 RBC 4.23 Mil/cmm (3.80-5.20) 11/25/17 21:03 Hgb 12.2 gm/dL (12-16) 11/25/17 21:03 Hct 36.4 % (41.0-60) L 11/25/17 21:03 MCV 86.2 fl (81-100) 11/25/17 21:03 MCH 28.8 pg (27.0-31.0) 11/25/17 21:03 MCHC Differential 33.4 pg (28.0-36.0) 11/25/17 21:03 RDW 14.9 % (11.5-20.0) 11/25/17 21:03 Plt Count 220 Th/cmm (150-400) 11/25/17 21:03 MPV 8.0 fl 11/25/17 21:03 Neutrophils % 80.1 % (40.0-80.0) H 11/25/17 21:03 Lymphocytes % 8.2 % (20.0-50.0) L 11/25/17 21:03 Monocytes % 10.8 % (2.0-10.0) H 11/25/17 21:03 Eosinophils % 0.9 % (0.0-5.0) 11/25/17 21:03 Basophils % 0.0 % (0.0-2.0) 11/25/17 21:03 Sodium 136 mEq/L (136-145) 11/25/17 21:03 Potassium 4.3 mEq/L (3.5-5.1) 11/25/17 21:03 Chloride 99 mEq/L (98-107) 11/25/17 21:03 Carbon Dioxide 34.2 mEq/L (21.0-31.0) H 11/25/17 21:03 Anion Gap 7.1 (7.0-16.0) 11/25/17 21:03 BUN 27 mg/dL (7-25) H 11/25/17 21:03 Creatinine 1.0 mg/dL (0.6-1.2) 11/25/17 21:03 Est GFR ( Amer) TNP 11/25/17 21:03 Est GFR (Non-Af Amer) TNP 11/25/17 21:03 BUN/Creatinine Ratio 27.0 11/25/17 21:03 Glucose 112 mg/dL (70-105) H 11/25/17 21:03 Calcium 9.1 mg/dL (8.6-10.3) 11/25/17 21:03 Total Bilirubin 0.2 mg/dL (0.3-1.0) L 11/25/17 21:03 AST 13 U/L (13-39) 11/25/17 21:03 ALT 7 U/L (7-52) 11/25/17 21:03 Alkaline Phosphatase 56 U/L (34-104) 11/25/17 21:03 Total Protein 6.1 gm/dL (6.0-8.3) 11/25/17 21:03 Albumin 3.6 gm/dL (3.7-5.3) L 11/25/17 21:03 Globulin 2.5 gm/dL 11/25/17 21:03 Albumin/Globulin Ratio 1.4 (1.0-1.8) 11/25/17 21:03 Valproic Acid 50.9 ug/mL (50.0-100.0) 12/08/17 19:58 - Physical Exam Vitals and I&O: Vital Signs Temp 97.9 F 12/12/17 20:57 Pulse 60 12/13/17 08:29 Resp 20 12/12/17 20:57 BP 94/55 12/13/17 08:29 Pulse Ox 97 12/12/17 20:57 Intake & Output 12/12/17 12/13/17 12/13/17 18:59 06:59 18:59 Intake Total 1200 120 Balance 1200 120 Intake: Oral 1200 120 Other: # Voids 3 3 Active Medications: Current Medications Acetaminophen (Tylenol) 650 mg PO Q6H PRN PRN Reason: Mild Pain/Headache/T above 101 Stop: 01/25/18 01:38 Last Admin: 12/02/17 22:20 Dose: 650 mg Acetaminophen/Hydrocodone Bitart ([place] 5mg/325mg) 1 tab PO Q6H PRN PRN Reason: Pain (Moderate) Stop: 01/25/18 01:55 Al Hydrox/Mg Hydrox/Simethicone (Maalox) 30 ml PO Q6H PRN PRN Reason: Dyspepsia Stop: 01/25/18 01:38 Dextromethorphan/Quinidine (Nuedexta 20mg-10mg) 1 cap PO BID [facility] Stop: 01/25/18 08:59 Last Admin: 12/13/17 08:06 Dose: 1 cap Divalproex Sodium (Depakote Dr) 250 mg PO TID JESS PRN Reason: Protocol Stop: 02/04/18 13:59 Last Admin: 12/13/17 08:06 Dose: 250 mg Lactobacillus Rhamnosus (Culturelle 15b) 1 each PO BID [facility] Stop: 01/25/18 08:59 Last Admin: 12/13/17 08:06 Dose: 1 each Levothyroxine Sodium (Synthroid) 0.05 mg PO QDAC JESS Stop: 01/25/18 07:29 Last Admin: 12/13/17 06:40 Dose: 0.05 mg Lorazepam (Ativan) 1 mg PO Q6H PRN; Protocol PRN Reason: Anxiety/Agitation Stop: 01/25/18 01:38 Last Admin: 12/06/17 08:53 Dose: 1 mg Losartan Potassium (Cozaar) 50 mg PO DAILY [facility] Stop: 01/25/18 08:59 Last Admin: 12/13/17 08:29 Dose: Not Given Magnesium Hydroxide (Milk Of Magnesia) 30 ml PO HS PRN PRN Reason: Constipation Stop: 01/25/18 01:38 Risperidone (Risperdal) 1 mg PO BID JESS PRN Reason: Protocol Stop: 01/28/18 16:59 Last Admin: 12/13/17 08:06 Dose: 1 mg Zolpidem Tartrate (Ambien) 5 mg PO HS PRN PRN Reason: Insomnia Stop: 01/25/18 01:38 Last Admin: 12/06/17 21:40 Dose: 5 mg General: demented HEENT: NC/AT, PERRLA, EOMI Neck: Supple, No JVD, No LAD Lungs: CTAB Cardiovascular: RRR, Normal S1, Normal S2 Abdomen: soft, non-tender, thin Extremities: excoriation - Procedures Procedures: Procedures Procedure Code Date OTHER GROUP THERAPY 94.44 11/06/10 Internal Medicine Assmt/Plan - Assessment Assessment: htn hypothyroidism psychosis - Plan Plan: monitor bp , will adjust bp meds accordingly as needed fall precautions continue current orders Nutritional Asmnt/Malnutr-PDOC - Dietary Evaluation Malnutrition Findings (Please click <Entered> for more info): Nutritional Asmnt/Malnutrition Start: 12/01/17 17: 55 Text: Status: Complete Freq: Document 12/01/17 17:55 LCNEYMARG (Rec: 12/01/17 18:04 LCNEYMARG [email or web address]) Nutritional Asmnt/Malnutrition Patient General Information Nutritional Screening Moderate Risk Diagnosis pscychosis Pertinent Medical Hx/Surgical Hx HTN, UTI, pscychosis, hypothyroidism Subjective Information Pt seen lying in bed during the time of visit, eating ice cream, confused, not able to comprehend. Family at bed side . Per notes, Po intake 75-100% , mostly 100%. Current Diet Order/ [facility], boost 1 can TID Pertinent Medications culturelle, synthroid, remeron Pertinent Labs 11/25 BUN 27, Glucose 112, Alb 3.6 Nutritional Hx/Data Height 5 ft 4 in Height (Calculated Centimeters) 162.6 Current Weight (lbs) 145 lb Weight (Calculated Kilograms) 65.8 Weight (Calculated Grams) 93607.9 [place] Body Weight 120 % [place] Body Weight 120 Body Mass Index (BMI) 24.9 Weight Status Approriate GI Symptoms GI Symptoms None Last BM 11/30 Difficult in: None Skin Integrity/Comment: REDENDED TO BUTTOCKS Current %PO Good (75-100%) Estimated Nutritional Goals BEE in Kcals: Using Current wt Calories/Kcals/Kg 25-30 Kcals Calculated 5692-7346 Protein: Using Current wt Protein g/k Protein Calculated 66 Fluid: ml 1650-1980ml (1ml/kcal) Nutritional Problem No current Nutrition Prob Problem N/A Malnutrition Alert Protein-Calorie Malnutrition N/A Is there a minimum of two criteria No selected? Query Text:Check all the applicable criteria. A minimum of two criteria are recommended for diagnosis of either severe or non-severe malnutrition. Intervention/Recommendation Comments 1. Continue with current diet as ordered. Recommend d/c Boost TID d/t PO intake 75-100 % meeting 100% of nutritional needs 2. Monitor PO intake, wt, labs and skin integrity 3. F/U as low risk in 7 days, 12/08 Expected Outcomes/Goals Expected Outcomes/Goals 1. PO intake to meet at least 75% of nutritional needs. 2. Wt stability, skin to remain intact, labs to approach WNL.
--- NOTE | 2017-12-13 19:59 | Progress Notes ---
DATE: 12/13/2017 SUBJECTIVE: Staff was spoken to. The patient is interviewed. Mood is noted to be anxious. The patient has been cooperative today. No aggressive behavior is reported. Coping skills at this time are noted to be improving. No side effects to the medications are noted. The patient has been able to verbalize her concerns. ASSESSMENT: The patient's impulsivity is coming down and the patient is able to tolerate the medication. PLAN: To continue the patient with the current medications and await for placement. [facility]# [id number]
[2017-12-14] MEDS: Levothyroxine 0.05 Mg Tab PO SCH (06:57)
[2017-12-14] MEDS: Lactobacillus Rhamnosus GG 15 Billion CFU CAP.SPRINK PO SCH (08:39)
[2017-12-14] MEDS: Dextromethorphan/Quinidine 20mg/10mg Cap PO SCH (08:39)
[2017-12-14] MEDS: Multivitamin w/ Minerals Tab PO SCH (08:39)
--- NOTE | 2017-12-14 12:12 | Progress Notes ---
DATE: 12/14/2017 SUBJECTIVE: Staff was spoken to. The patient is interviewed. Mood is noted to be anxious. The patient's insight and judgment noted to be improving. Impulse control seems to be fair. Coping skills are noted to be fair. No side effects from medications are noted. The patient has been able to participate in the groups and verbalize the concerns. No side effects to the medications are noted at this time. ASSESSMENT: The patient is stabilizing. PLAN: To discharge the patient today for followup on outpatient basis. JOB# [id number]
--- NOTE | 2017-12-14 14:49 | Internal Medicine Prog Note ---
Internal Medicine Subjective - Subjective Patient seen and examined:: with staff, chart reviewed Patient is:: awake, verbal, non-interactive Per staff patient has:: no adverse event, no episodes of fall, poor appetite, noncompliant, tolerating meds Internal Medicine Objective - Results Result Diagrams: 11/25/17 21:03 11/25/17 21:03 Recent Labs: Laboratory Last Values WBC 9.1 Th/cmm (4.8-10.8) 11/25/17 21:03 RBC 4.23 Mil/cmm (3.80-5.20) 11/25/17 21:03 Hgb 12.2 gm/dL (12-16) 11/25/17 21:03 Hct 36.4 % (41.0-60) L 11/25/17 21:03 MCV 86.2 fl (81-100) 11/25/17 21:03 MCH 28.8 pg (27.0-31.0) 11/25/17 21:03 MCHC Differential 33.4 pg (28.0-36.0) 11/25/17 21:03 RDW 14.9 % (11.5-20.0) 11/25/17 21:03 Plt Count 220 Th/cmm (150-400) 11/25/17 21:03 MPV 8.0 fl 11/25/17 21:03 Neutrophils % 80.1 % (40.0-80.0) H 11/25/17 21:03 Lymphocytes % 8.2 % (20.0-50.0) L 11/25/17 21: Monocytes % 10.8 % (2.0-10.0) H 11/25/17 21:03 Eosinophils % 0.9 % (0.0-5.0) 11/25/17 21:03 Basophils % 0.0 % (0.0-2.0) 11/25/17 21:03 Sodium 136 mEq/L (136-145) 11/25/17 21:03 Potassium 4.3 mEq/L (3.5-5.1) 11/25/17 21:03 Chloride 99 mEq/L (98-107) 11/25/17 21:03 Carbon Dioxide 34.2 mEq/L (21.0-31.0) H 11/25/17 21:03 Anion Gap 7.1 (7.0-16.0) 11/25/17 21:03 BUN 27 mg/dL (7-25) H 11/25/17 21:03 Creatinine 1.0 mg/dL (0.6-1.2) 11/25/17 21:03 Est GFR ( Amer) TNP 11/25/17 21:03 Est GFR (Non-Af Amer) TNP 11/25/17 21:03 BUN/Creatinine Ratio 27.0 11/25/17 21:03 Glucose 112 mg/dL (70-105) H 11/25/17 21:03 Calcium 9.1 mg/dL (8.6-10.3) 11/25/17 21:03 Total Bilirubin 0.2 mg/dL (0.3-1.0) L 11/25/17 21:03 AST 13 U/L (13-39) 11/25/17 21:03 ALT 7 U/L (7-52) 11/25/17 21:03 Alkaline Phosphatase 56 U/L (34-104) 11/25/17 21:03 Total Protein 6.1 gm/dL (6.0-8.3) 11/25/17 21:03 Albumin 3.6 gm/dL (3.7-5.3) L 11/25/17 21:03 Globulin 2.5 gm/dL 11/25/17 21:03 Albumin/Globulin Ratio 1.4 (1.0-1.8) 11/25/17 21:03 Valproic Acid 50.9 ug/mL (50.0-100.0) 12/08/17 19:58 - Physical Exam Vitals and I&O: Vital Signs Temp 98.6 F 12/13/17 20:16 Pulse 67 12/14/17 08:39 Resp 19 12/13/17 20:16 BP 140/79 12/14/17 08:39 Pulse Ox 93 12/13/17 20:16 Intake & Output 12/13/17 12/14/17 12/14/17 18:59 06:59 18:59 Intake Total 800 120 Balance 800 120 Intake: Oral 800 120 Other: # Voids 3 3 # Bowel Movements 1 0 Active Medications: Current Medications Acetaminophen (Tylenol) 650 mg PO Q6H PRN PRN Reason: Mild Pain/Headache/T above 101 Stop: 01/25/18 01:38 Last Admin: 12/02/17 22:20 Dose: 650 mg Acetaminophen/Hydrocodone Bitart ([place] 5mg/325mg) 1 tab PO Q6H PRN PRN Reason: Pain (Moderate) Stop: 01/25/18 01:55 Al Hydrox/Mg Hydrox/Simethicone (Maalox) 30 ml PO Q6H PRN PRN Reason: Dyspepsia Stop: 01/25/18 01:38 Dextromethorphan/Quinidine (Nuedexta 20mg-10mg) 1 cap PO BID JESS Stop: 01/25/18 08:59 Last Admin: 12/14/17 08:39 Dose: 1 cap Divalproex Sodium (Depakote Dr) 250 mg PO TID JESS PRN Reason: Protocol Stop: 02/04/18 13:59 Last Admin: 12/14/17 13:51 Dose: 250 mg Lactobacillus Rhamnosus (Culturelle 15b) 1 each PO BID JESS Stop: 01/25/18 08:59 Last Admin: 12/14/17 08:39 Dose: 1 each Levothyroxine Sodium (Synthroid) 0.05 mg PO QDAC JESS Stop: 01/25/18 07:29 Last Admin: 12/14/17 06:57 Dose: 0.05 mg Lorazepam (Ativan) 1 mg PO Q6H PRN; Protocol PRN Reason: Anxiety/Agitation Stop: 01/25/18 01:38 Last Admin: 12/06/17 08:53 Dose: 1 mg Losartan Potassium (Cozaar) 50 mg PO DAILY JESS Stop: 01/25/18 08:59 Last Admin: 12/14/17 08:39 Dose: 50 mg Magnesium Hydroxide (Milk Of Magnesia) 30 ml PO HS PRN PRN Reason: Constipation Stop: 01/25/18 01:38 Risperidone (Risperdal) 1 mg PO BID JESS PRN Reason: Protocol Stop: 01/28/18 16:59 Last Admin: 12/14/17 08:39 Dose: 1 mg Zolpidem Tartrate (Ambien) 5 mg PO HS PRN PRN Reason: Insomnia Stop: 01/25/18 01:38 Last Admin: 12/06/17 21:40 Dose: 5 mg General: demented HEENT: NC/AT, PERRLA, EOMI Neck: Supple, No JVD, No LAD Lungs: CTAB Cardiovascular: RRR, Normal S1, Normal S2 Abdomen: soft, non-tender, thin Extremities: excoriation Neurological: no change - Procedures Procedures: Procedures Procedure Code Date OTHER GROUP THERAPY 94.44 11/06/10 Internal Medicine Assmt/Plan - Assessment Assessment: - Assessment Assessment: htn hypothyroidism psychosis - Plan Plan: monitor bp , will adjust bp meds accordingly as needed fall precautions continue current orders - Plan Plan: cpm labs noted Nutritional Asmnt/Malnutr-PDOC - Dietary Evaluation Malnutrition Findings (Please click <Entered> for more info): Nutritional Asmnt/Malnutrition Start: 12/01/17 17: 55 Text: Status: Complete Freq: Document 12/01/17 17:55 GUILHERME (Rec: 12/01/17 18:04 GUILHERME [email or web address]) Nutritional Asmnt/Malnutrition Patient General Information Nutritional Screening Moderate Risk Diagnosis pscychosis Pertinent Medical Hx/Surgical Hx HTN, UTI, pscychosis, hypothyroidism Subjective Information Pt seen lying in bed during the time of visit, eating ice cream, confused, not able to comprehend. Family at bed side . Per notes, Po intake 75-100% , mostly 100%. Current Diet Order/ Nutrition Support mech soft chopped, boost 1 can TID Pertinent Medications culturelle, synthroid, remeron Pertinent Labs 11/25 BUN 27, Glucose 112, Alb 3.6 Nutritional Hx/Data Height 1.63 m Height (Calculated Centimeters) 162.6 Current Weight (lbs) 65.771 kg Weight (Calculated Kilograms) 65.8 Weight (Calculated Grams) 30821.9 [place] Body Weight 120 % [place] Body Weight 120 Body Mass Index (BMI) 24.9 Weight Status Approriate GI Symptoms GI Symptoms None Last BM 11/30 Difficult in: None Skin Integrity/Comment: REDENDED TO BUTTOCKS Current %PO Good (75-100%) Estimated Nutritional Goals BEE in Kcals: Using Current wt Calories/Kcals/Kg 25-30 Kcals Calculated 0398-3040 Protein: Using Current wt Protein g/k Protein Calculated 66 Fluid: ml 1650-1980ml (1ml/kcal) Nutritional Problem No current Nutrition Prob Problem N/A Malnutrition Alert Protein-Calorie Malnutrition N/A Is there a minimum of two criteria No selected? Query Text:Check all the applicable criteria. A minimum of two criteria are recommended for diagnosis of either severe or non-severe malnutrition. Intervention/Recommendation Comments 1. Continue with current diet as ordered. Recommend d/c Boost TID d/t PO intake 75-100 % meeting 100% of nutritional needs 2. Monitor PO intake, wt, labs and skin integrity 3. F/U as low risk in 7 days, 12/08 Expected Outcomes/Goals Expected Outcomes/Goals 1. PO intake to meet at least 75% of nutritional needs. 2. Wt stability, skin to remain intact, labs to approach WNL.
== END 2017-12-14 16:30 | disposition home or self-care (01) | DRG 885 ==
LOC: ER 20:23 → GERO 11-26 00:48
DX: F25.9 Schizoaffective disorder, unspecified (principal); F03.90 Unspecified dementia, unspecified severity, without behavioral disturbance, psychotic disturbance, mood disturbance, and anxiety; J44.9 Chronic obstructive pulmonary disease, unspecified; F29 Unspecified psychosis not due to a substance or known physiological condition; E03.9 Hypothyroidism, unspecified; I10 Essential (primary) hypertension; E78.5 Hyperlipidemia, unspecified; M19.90 Unspecified osteoarthritis, unspecified site; Z88.8 Allergy status to other drugs, medicaments and biological substances; Z88.0 Allergy status to penicillin
CPT/HCPCS: 36415-UA; 80053-TC; 80164-TC; 85025-TC; J1630; Z7502; Z7610

== ENCOUNTER 2018-06-08 18:22 | Inpatient (IN) | payer MEDICARE, MEDICAID ==
--- NOTE | 2018-06-08 18:46 | ED Physician Chart ---
ED Chief Complaint/HPI - Patient Information Date Seen:: 06/08/18 Time Seen:: 18:40 Chief Complaint:: increased agitation History of Present Illness:: Patient [facility] exhibiting [facility]. Allergies:: Allergies Allergy/AdvReac Type Severity Reaction Status Date / Time chlorpromazine Allergy Verified 11/25/17 21:23 Penicillins Allergy Verified 11/25/17 21:23 Vitals:: Vital Signs - 8 hr 06/08/18 18:24 Temp 97.6 F HR 82 RR 16 BP 132/78 Historian:: EMS Review:: Transfer documents Reviewed ED Review of Systems - Review of Systems General/Constitutional: No fever, No chills, No weight loss, No weakness, No diaphoresis, No edema, No loss of appetite Skin: No skin lesions, No rash, No bruising Head: No headache, No light-headedness Eyes: No loss of vision, No pain, No diplopia ENT: No earache, No nasal drainage, No sore throat, No tinnitus Neck: No neck pain, No swelling, No thyromegaly, No stiffness, No mass noted Cardio Vascular: No chest pain, No palpitations, No PND, No orthopnea, No edema Pulmonary: No SOB, No cough, No sputum, No wheezing GI: No nausea, No vomiting, No diarrhea, No pain, No melena, No hematochezia, No constipation, No hematemesis G/U: No dysuria, No frequency, No hematuria Musculoskeletal: No bone or joint pain, No back pain, No muscle pain Endocrine: No polyuria, No polydipsia Psychiatric: Prior psych history, Depression, No anxiety, No suicidal ideation Hematopoietic: No bruising, No lymphadenopathy Allergic/Immuno: No urticaria, No angioedema Neurological: No syncope, No focal symptoms, No weakness, No paresthesia, No headache, No seizure, No dizziness, No confusion, No vertigo ED Past Medical History - Past Medical History Past Medical History: HTN, Asthma/COPD, Dyslipidemia, Thyroid disorder, Arthritis, Other (dementia; is affective disorder; depression; hyperlipidemia; hypothyroidism) Family History: Other (unavailable) Social History: Care Facility Surgical History: other (unavailable) Psychiatricy History: Dementia, Other (schizoaffective) Medication: Reviewed Family Medical History - Family Member Mother History Unknown: Yes ED Physical Exam - Physical Examination General/Constitutional: No distress Other Gen/Cons comments:: Mildly to moderately chronically ill-appearing; no acute distress; uncooperative for physical exam; sticks her fingers in her ears which makes examining her very difficult Head: Atraumatic Eyes: Lids, conjuctiva normal, PERRL Skin: Nl inspection, No rash ENMT: External ears, nose nl Other ENMT comments:: Appears to be edentulous Neck: No mass Respiratory: Nl effort/Exclusion Other Respiratory comments:: Decreased breath sounds Cardio Vascular: RRR, No murmur, gallop, rubs GI: No tenderness/rebounding/guarding : No CVA tenderness Extremities: No edema Neuro/Psych: No focal deficits ED Septic Shock - <6hrs of presentation: Vital Signs: Vital Signs - 8 hr 06/08/18 18:24 Temp 97.6 F HR 82 RR 16 BP 132/78
[2018-06-08] MEDS ORDERED: Haloperidol Lactate 5 mg/mL 1mL Vial IM STA (20:31)
[2018-06-08] MEDS ORDERED: Haloperidol Lactate 5 mg/mL 1mL Vial ONE (20:35)
[2018-06-08 21:44] LABS: % BASOPHILS 0.2 % (0.0-2.0); % EOSINOPHILS 4.3 % (0.0-5.0); % LYMPHOCYTES 15.9 % (20.0-50.0); % MONOCYTES 9.3 % (2.0-10.0); % NEUTROPHILS 70.3 % (40.0-80.0); EOSINOPHILE ABSOLUTE 0.4 Th/cmm (0.1-0.4); HEMATOCRIT 41.2 % (41.0-60); HEMOGLOBIN 13.8 gm/dL (12-16); LYMPHOCYTE ABSOLUTE 1.7 Th/cmm (1.5-3.0); MEAN CORPUSCULAR HEMOGLOBIN 28.5 pg (27.0-31.0); MEAN CORPUSCULAR HGB CONC 33.5 pg (28.0-36.0); MEAN PLATELET VOLUME 8.2 fl; NEUTROPHILE ABSOLUTE 7.3 Th/cmm (1.8-8.0); PLATELET COUNT 220 Th/cmm (150-400); RED BLOOD COUNT 4.85 Mil/cmm (3.80-5.20); WHITE BLOOD COUNT 10.4 Th/cmm (4.8-10.8)
[2018-06-08 22:00] LABS: ALB/GLOB RATIO 1.2 (1.0-1.8); ALBUMIN 3.6 gm/dL (3.7-5.3); ALKALINE PHOSPHATASE 54 U/L (34-104); ANION GAP 13.5 (7.0-16.0); BILIRUBIN,TOTAL 0.5 mg/dL (0.3-1.0); BUN - UREA NITROGEN 16 mg/dL (7-25); CALCIUM SERUM 9.7 mg/dL (8.6-10.3); CARBON DIOXIDE 25.2 mEq/L (21.0-31.0); CHLORIDE 98 mEq/L (98-107); CHOLESTEROL 265 mg/dL (<200); CREATININE - SERUM 0.7 mg/dL (0.6-1.2); GLUCOSE 86 mg/dL (70-105); HDL -HIGH DENSITY LIPOPROTEIN 40 mg/dL (23-92); POTASSIUM SERUM 4.7 mEq/L (3.5-5.1); SGOT 13 U/L (13-39); SGPT/ALT 6 U/L (7-52); SODIUM SERUM 132 mEq/L (136-145); TOTAL PROTEIN,SERUM 6.5 gm/dL (6.0-8.3); TRIGLYCERIDES 186 mg/dL (<150)
[2018-06-09 02:35] VITALS: BP 132/78
[2018-06-09] MEDS: Levothyroxine 0.05 Mg Tab PO SCH (06:54)
[2018-06-09] MEDS: Multivitamin w/ Minerals Tab PO SCH (08:12)
[2018-06-09] MEDS: Dextromethorphan/Quinidine 20mg/10mg Cap PO SCH ×2 (09:44→16:09)
[2018-06-09] MEDS ORDERED: Maalox 30 mL Cup PO PRN (13:13)
[2018-06-09] MEDS ORDERED: Magnesium Hydroxide (MOM) 30 mL UDC PO PRN (13:13)
--- NOTE | 2018-06-09 14:07 | Internal Medicine Prog Note ---
Internal Medicine Subjective - Subjective Service Date: 06/09/18 ([facility] dictated [id number]) Internal Medicine Objective - Results Result Diagrams: 06/08/18 21:35 06/08/18 21:35 Recent Labs: Laboratory Last Values WBC 10.4 Th/cmm (4.8-10.8) 06/08/18 21:35 RBC 4.85 Mil/cmm (3.80-5.20) 06/08/18 21:35 Hgb 13.8 gm/dL (12-16) 06/08/18 21:35 Hct 41.2 % (41.0-60) 06/08/18 21:35 MCV 85.0 fl (81-100) 06/08/18 21:35 MCH 28.5 pg (27.0-31.0) 06/08/18 21:35 MCHC Differential 33.5 pg (28.0-36.0) 06/08/18 21:35 RDW 15.0 % (11.5-20.0) 06/08/18 21:35 Plt Count 220 Th/cmm (150-400) 06/08/18 21:35 MPV 8.2 fl 06/08/18 21:35 Neutrophils % 70.3 % (40.0-80.0) 06/08/18 21:35 Lymphocytes % 15.9 % (20.0-50.0) L 06/08/18 21:35 Monocytes % 9.3 % (2.0-10.0) 06/08/18 21:35 Eosinophils % 4.3 % (0.0-5.0) 06/08/18 21:35 Basophils % 0.2 % (0.0-2.0) 06/08/18 21:35 Sodium 132 mEq/L (136-145) L 06/08/18 21:35 Potassium 4.7 mEq/L (3.5-5.1) 06/08/18 21:35 Chloride 98 mEq/L (98-107) 06/08/18 21:35 Carbon Dioxide 25.2 mEq/L (21.0-31.0) 06/08/18 21:35 Anion Gap 13.5 (7.0-16.0) 06/08/18 21:35 BUN 16 mg/dL (7-25) 06/08/18 21:35 Creatinine 0.7 mg/dL (0.6-1.2) 06/08/18 21:35 Est GFR ( Amer) TNP 06/08/18 21:35 Est GFR (Non-Af Amer) TNP 06/08/18 21:35 BUN/Creatinine Ratio 22.9 06/08/18 21:35 Glucose 86 mg/dL (70-105) 06/08/18 21:35 Calcium 9.7 mg/dL (8.6-10.3) 06/08/18 21:35 Total Bilirubin 0.5 mg/dL (0.3-1.0) 06/08/18 21:35 AST 13 U/L (13-39) 06/08/18 21:35 ALT 6 U/L (7-52) L 06/08/18 21:35 Alkaline Phosphatase 54 U/L (34-104) 06/08/18 21:35 Total Protein 6.5 gm/dL (6.0-8.3) 06/08/18 21:35 Albumin 3.6 gm/dL (3.7-5.3) L 06/08/18 21:35 Globulin 2.9 gm/dL 06/08/18 21:35 Albumin/Globulin Ratio 1.2 (1.0-1.8) 06/08/18 21:35 Triglycerides 186 mg/dL (<150) H 06/08/18 21:35 Cholesterol 265 mg/dL (<200) H 06/08/18 21:35 LDL Cholesterol Direct 198 mg/dL (75-193) H 06/08/18 21:35 HDL Cholesterol 40 mg/dL (23-92) 06/08/18 21:35 TSH 3.69 uIU/ml (0.34-5.60) 06/08/18 21:35 - Physical Exam Vitals and I&O: Vital Signs Temp 0 F 06/09/18 06:41 Pulse 82 06/08/18 23:45 Resp 16 06/08/18 23:45 BP 132/78 06/09/18 02:35 Pulse Ox 98 06/08/18 23:45 Intake & Output 06/08/18 06/09/18 06/09/18 18:59 06:59 18:59 Weight (lbs) 120 lb Other: # Voids 2 # Bowel Movements 0 Weight Source Estimated Active Medications: Current Medications Acetaminophen (Tylenol) 650 mg PO Q6H PRN PRN Reason: Mild Pain/Headache/T above 101 Stop: 08/08/18 13:12 Al Hydrox/Mg Hydrox/Simethicone (Maalox) 30 ml PO Q6H PRN PRN Reason: Dyspepsia Stop: 08/08/18 13:12 Dextromethorphan/Quinidine (Nuedexta 20mg-10mg) 1 cap PO BID JESS Stop: 08/08/18 08:59 Last Admin: 06/09/18 09:44 Dose: Not Given Divalproex Sodium (Depakote Dr) 250 mg PO BID [facility]; Protocol Stop: 08/08/18 08:59 Last Admin: 06/09/18 08:12 Dose: Not Given Levothyroxine Sodium (Synthroid) 0.05 mg PO QDAC JESS Stop: 08/08/18 07:29 Last Admin: 06/09/18 06:54 Dose: Not Given Lorazepam (Ativan) 1 mg PO Q6H PRN; Protocol PRN Reason: Anxiety/Agitation Stop: 08/08/18 04:17 Losartan Potassium (Cozaar) 50 mg PO DAILY JESS Stop: 08/08/18 08:59 Last Admin: 06/09/18 08:12 Dose: Not Given Magnesium Hydroxide (Milk Of Magnesia) 30 ml PO HS PRN PRN Reason: Constipation Stop: 08/08/18 13:12 Miscellaneous (L. Acidophilus/L.Bulgaricus [Lactinex Chewable Tablet]) 1 each PO BID JESS Stop: 08/08/18 16:59 Risperidone (Risperdal) 1 mg PO DAILY JESS; Protocol Stop: 08/08/18 08:59 Last Admin: 06/09/18 08:12 Dose: Not Given Zolpidem Tartrate (Ambien) 5 mg PO HS PRN PRN Reason: Insomnia Stop: 08/08/18 04:29 Zolpidem Tartrate (Ambien) 5 mg PO HS PRN PRN Reason: Insomnia Stop: 08/08/18 13:12 - Procedures Procedures: Procedures Procedure Code Date OTHER GROUP THERAPY 94.44 11/06/10
[2018-06-09] MEDS ORDERED: BULGARICUS PO SCH (17:00)
[2018-06-09] MEDS ORDERED: ACIDOPHILUS PO SCH (17:00)
--- NOTE | 2018-06-09 18:07 | History & Physical ---
ADMIT DATE: 06/09/2018 CHIEF COMPLAINT: Increase of agitation. HISTORY OF PRESENT ILLNESS: This is a 72-year-old female who is well known to me from previous admission who was also a residential resident, admitted to the Geropsych Unit due to increase of agitation towards nursing staff. PAST MEDICAL HISTORY: UTI, psychosis, hypothyroidism and hypertension. PAST SURGICAL HISTORY: Unknown. ALLERGIES: CHLORPROMAZINE and PENICILLIN. SOCIAL HISTORY: The patient is a residential resident, requiring 24-hour nursing care. FAMILY HISTORY: Noncontributory. REVIEW OF SYSTEMS: Unable to obtain due to patient's mental status. The patient is confused. PHYSICAL EXAMINATION: GENERAL: Elderly female, awake with confusion, in no apparent distress. VITAL SIGNS: Temperature 97.6, heart rate 82, blood pressure 132/78, respirations 16 and O2 98%. HEENT: Head; normocephalic and atraumatic. NECK: Supple. No mass. LUNGS: Clear bilaterally. HEART: Regular rate and rhythm. ABDOMEN: Soft and nontender. LABORATORY DATA: WBC 10.4, H and H 13.8 and 41.2 and platelet of 220. Sodium 132, potassium 4.7, chloride 98, BUN 16 and creatinine 0.7. ASSESSMENT: Increase of agitation, psychosis, hypothyroidism and hypertension. PLAN: We will monitor the patient's blood pressure. We will adjust the patient's blood pressure medications accordingly. Continue current medications from the residential. Fall precautions will be initiated. Continue current plan of care. JOB# [id number]
[2018-06-09 18:45] LABS: A1C % 5.1 % (4.0-6.0)
--- NOTE | 2018-06-10 03:29 | Psychosocial Evaluation ---
DATE OF SERVICE: 06/09/2018 IDENTIFYING DATA: The patient is a 72-year-old woman, a resident of [facility]. Information is obtained by directly interviewing the patient as well as reviewing the admission papers and they are reliable. JUSTIFICATION OF HOSPITALIZATION: The patient is admitted here on a voluntary basis in view of her acute agitation, irritability and anger. CHIEF COMPLAINT: "I don't need to talk to anyone." HISTORY OF PRESENT ILLNESS: This is one of multiple psychiatric hospitalizations for this patient who is known to me from the previous psychiatric hospitalization in 10/2017. The patient at this time has been admitted over here for acute agitation. The patient has been followed up at [facility] by Dr. Little. The patient was treated with mirtazapine, Risperdal and valproic acid in the past, and the patient has been diagnosed to have schizoaffective disorder. At this time, the patient has been very irritable, angry, screaming and yelling, and is not able to provide much of information. PAST PSYCHIATRIC HISTORY: Please refer to the above. MEDICAL HISTORY: Requested to be done by Dr. Walls. PHYSICAL EXAMINATION: Requested to be done by Dr. Walls. SUBSTANCE ABUSE HISTORY: None. PHYSICAL OR SEXUAL ABUSE HISTORY: None. LEGAL PROBLEMS: None at this time. STRENGTH AND ASSETS: The patient is motivated. MENTAL STATUS EXAMINATION: The patient is a 72-year-old woman, looking her stated age, thin built, superficially cooperative. Eye contact is poor. Mood is noted to be irritable. Affect is constricted. Insight and judgment are very much impaired. Impulse control seems to be poor. Coping skills are also noted to be very poor. The patient has been noted to be very paranoid, dysphoric. The patient has acute mood swings. The patient's coping skills are noted to be extremely poor at this time. Insight and judgment are also noted to be very much impaired. The patient is reported to have been screaming, yelling and getting out of control at this facility. DIAGNOSTIC IMPRESSION: AXIS I: Schizoaffective disorder. AXIS II: None. AXIS III: As per Dr. Walls. IMMEDIATE TREATMENT PLAN: The patient is going to be continued on Depakote and Risperdal. The patient is going to be closely monitored. Once stabilized, the patient is going to be discharged to [facility] to be followed up on an outpatient basis. JOB# [id number]
[2018-06-10] MEDS: Levothyroxine 0.05 Mg Tab PO SCH (06:59)
--- NOTE | 2018-06-10 11:21 | Internal Medicine Prog Note ---
Internal Medicine Subjective - Subjective Service Date: 06/10/18 Patient seen and examined:: with staff Patient is:: awake Per staff patient has:: tolerating meds Internal Medicine Objective - Results Result Diagrams: 06/08/18 21:35 06/08/18 21:35 Recent Labs: Laboratory Last Values WBC 10.4 Th/cmm (4.8-10.8) 06/08/18 21:35 RBC 4.85 Mil/cmm (3.80-5.20) 06/08/18 21:35 Hgb 13.8 gm/dL (12-16) 06/08/18 21:35 Hct 41.2 % (41.0-60) 06/08/18 21:35 MCV 85.0 fl (81-100) 06/08/18 21:35 MCH 28.5 pg (27.0-31.0) 06/08/18 21:35 MCHC Differential 33.5 pg (28.0-36.0) 06/08/18 21:35 RDW 15.0 % (11.5-20.0) 06/08/18 21:35 Plt Count 220 Th/cmm (150-400) 06/08/18 21:35 MPV 8.2 fl 06/08/18 21:35 Neutrophils % 70.3 % (40.0-80.0) 06/08/18 21:35 Lymphocytes % 15.9 % (20.0-50.0) L 06/08/18 21:35 Monocytes % 9.3 % (2.0-10.0) 06/08/18 21:35 Eosinophils % 4.3 % (0.0-5.0) 06/08/18 21:35 Basophils % 0.2 % (0.0-2.0) 06/08/18 21:35 Sodium 132 mEq/L (136-145) L 06/08/18 21:35 Potassium 4.7 mEq/L (3.5-5.1) 06/08/18 21:35 Chloride 98 mEq/L (98-107) 06/08/18 21:35 Carbon Dioxide 25.2 mEq/L (21.0-31.0) 06/08/18 21:35 Anion Gap 13.5 (7.0-16.0) 06/08/18 21:35 BUN 16 mg/dL (7-25) 06/08/18 21:35 Creatinine 0.7 mg/dL (0.6-1.2) 06/08/18 21:35 Est GFR ( Amer) TNP 06/08/18 21:35 Est GFR (Non-Af Amer) TNP 06/08/18 21:35 BUN/Creatinine Ratio 22.9 06/08/18 21:35 Glucose 86 mg/dL (70-105) 06/08/18 21:35 Hemoglobin A1c % 5.1 % (4.0-6.0) 06/08/18 21:35 Calcium 9.7 mg/dL (8.6-10.3) 06/08/18 21:35 Total Bilirubin 0.5 mg/dL (0.3-1.0) 06/08/18 21:35 AST 13 U/L (13-39) 06/08/18 21:35 ALT 6 U/L (7-52) L 06/08/18 21:35 Alkaline Phosphatase 54 U/L (34-104) 06/08/18 21:35 Total Protein 6.5 gm/dL (6.0-8.3) 06/08/18 21:35 Albumin 3.6 gm/dL (3.7-5.3) L 06/08/18 21:35 Globulin 2.9 gm/dL 06/08/18 21:35 Albumin/Globulin Ratio 1.2 (1.0-1.8) 06/08/18 21:35 Triglycerides 186 mg/dL (<150) H 06/08/18 21:35 Cholesterol 265 mg/dL (<200) H 06/08/18 21:35 LDL Cholesterol Direct 198 mg/dL (75-193) H 06/08/18 21:35 HDL Cholesterol 40 mg/dL (23-92) 06/08/18 21:35 TSH 3.69 uIU/ml (0.34-5.60) 06/08/18 21:35 - Physical Exam Vitals and I&O: Vital Signs Temp 0 F 06/09/18 06:41 Pulse 82 06/08/18 23:45 Resp 16 06/08/18 23:45 BP 132/78 06/09/18 02:35 Pulse Ox 98 06/08/18 23:45 Active Medications: Current Medications Acetaminophen (Tylenol) 650 mg PO Q6H PRN PRN Reason: Mild Pain/Headache/T above 101 Stop: 08/08/18 13:12 Al Hydrox/Mg Hydrox/Simethicone (Maalox) 30 ml PO Q6H PRN PRN Reason: Dyspepsia Stop: 08/08/18 13:12 Dextromethorphan/Quinidine (Nuedexta 20mg-10mg) 1 cap PO BID JESS Stop: 08/08/18 08:59 Last Admin: 06/09/18 16:09 Dose: Not Given Divalproex Sodium (Depakote Dr) 250 mg PO BID [facility]; Protocol Stop: 08/08/18 08:59 Last Admin: 06/09/18 16:09 Dose: Not Given Levothyroxine Sodium (Synthroid) 0.05 mg PO QDAC JESS Stop: 08/08/18 07:29 Last Admin: 06/10/18 06:59 Dose: Not Given Lorazepam (Ativan) 1 mg PO Q6H PRN; Protocol PRN Reason: Anxiety/Agitation Stop: 08/08/18 04:17 Losartan Potassium (Cozaar) 50 mg PO DAILY JESS Stop: 08/08/18 08:59 Last Admin: 06/09/18 08:12 Dose: Not Given Magnesium Hydroxide (Milk Of Magnesia) 30 ml PO HS PRN PRN Reason: Constipation Stop: 08/08/18 13:12 Risperidone (Risperdal) 1 mg PO DAILY [facility]; Protocol Stop: 08/08/18 08:59 Last Admin: 06/09/18 08:12 Dose: Not Given Zolpidem Tartrate (Ambien) 5 mg PO HS PRN PRN Reason: Insomnia Stop: 08/08/18 04:29 Zolpidem Tartrate (Ambien) 5 mg PO HS PRN PRN Reason: Insomnia Stop: 08/08/18 13:12 General: alert HEENT: NC/AT, PERRLA Lungs: CTAB Cardiovascular: RRR Abdomen: soft, non-tender, non-distended, positive bowel sound - Procedures Procedures: Procedures Procedure Code Date OTHER GROUP THERAPY 94.44 11/06/10 Internal Medicine Assmt/Plan - Assessment Assessment: increase agitation psychosis hypothyroidism htn - Plan Plan: continue with bp meds, fall precautions continue current plan of care
--- NOTE | 2018-06-10 14:10 | Progress Notes ---
DATE: 06/10/2018 PSYCHIATRIC PROGRESS NOTE SUBJECTIVE: Staff was spoken to. The patient is interviewed. Mood is noted to be irritable. Affect is constricted. The patient's insight and judgment are noted to be still impaired. Impulse control is noted to be poor. Coping skills are also noted to be very poor. The patient has been having difficult time to cope with the stress. The patient is getting easily frustrated and the patient is currently on the valproic acid, which is being given 250 mg and Risperdal 1 mg in the morning and the patient has been able to tolerate the medication. Sleep is noted to be improving. Appetite is noted to be poor. ASSESSMENT: The patient is still psychotic. PLAN: To continue the patient with the supportive therapy and followup. JOB# [id number]
[2018-06-10] MEDS: Multivitamin w/ Minerals Tab PO SCH (18:19)
[2018-06-10] MEDS: Dextromethorphan/Quinidine 20mg/10mg Cap PO SCH (18:19)
[2018-06-11] MEDS: Levothyroxine 0.05 Mg Tab PO SCH (06:53)
[2018-06-11] MEDS: Dextromethorphan/Quinidine 20mg/10mg Cap PO SCH ×3 (09:08→16:03)
[2018-06-11] MEDS: Multivitamin w/ Minerals Tab PO SCH ×2 (09:08→09:16)
--- NOTE | 2018-06-11 11:23 | Internal Medicine Prog Note ---
Internal Medicine Subjective - Subjective Service Date: 06/11/18 Patient is:: awake Per staff patient has:: tolerating meds Internal Medicine Objective - Results Result Diagrams: 06/08/18 21:35 06/08/18 21:35 Recent Labs: Laboratory Last Values WBC 10.4 Th/cmm (4.8-10.8) 06/08/18 21:35 RBC 4.85 Mil/cmm (3.80-5.20) 06/08/18 21:35 Hgb 13.8 gm/dL (12-16) 06/08/18 21:35 Hct 41.2 % (41.0-60) 06/08/18 21:35 MCV 85.0 fl (81-100) 06/08/18 21:35 MCH 28.5 pg (27.0-31.0) 06/08/18 21:35 MCHC Differential 33.5 pg (28.0-36.0) 06/08/18 21:35 RDW 15.0 % (11.5-20.0) 06/08/18 21:35 Plt Count 220 Th/cmm (150-400) 06/08/18 21:35 MPV 8.2 fl 06/08/18 21:35 Neutrophils % 70.3 % (40.0-80.0) 06/08/18 21:35 Lymphocytes % 15.9 % (20.0-50.0) L 06/08/18 21:35 Monocytes % 9.3 % (2.0-10.0) 06/08/18 21:35 Eosinophils % 4.3 % (0.0-5.0) 06/08/18 21:35 Basophils % 0.2 % (0.0-2.0) 06/08/18 21:35 Sodium 132 mEq/L (136-145) L 06/08/18 21:35 Potassium 4.7 mEq/L (3.5-5.1) 06/08/18 21:35 Chloride 98 mEq/L (98-107) 06/08/18 21:35 Carbon Dioxide 25.2 mEq/L (21.0-31.0) 06/08/18 21:35 Anion Gap 13.5 (7.0-16.0) 06/08/18 21:35 BUN 16 mg/dL (7-25) 06/08/18 21:35 Creatinine 0.7 mg/dL (0.6-1.2) 06/08/18 21:35 Est GFR ( Amer) TNP 06/08/18 21:35 Est GFR (Non-Af Amer) TNP 06/08/18 21:35 BUN/Creatinine Ratio 22.9 06/08/18 21:35 Glucose 86 mg/dL (70-105) 06/08/18 21:35 Hemoglobin A1c % 5.1 % (4.0-6.0) 06/08/18 21:35 Calcium 9.7 mg/dL (8.6-10.3) 06/08/18 21:35 Total Bilirubin 0.5 mg/dL (0.3-1.0) 06/08/18 21:35 AST 13 U/L (13-39) 06/08/18 21:35 ALT 6 U/L (7-52) L 06/08/18 21:35 Alkaline Phosphatase 54 U/L (34-104) 06/08/18 21:35 Total Protein 6.5 gm/dL (6.0-8.3) 06/08/18 21:35 Albumin 3.6 gm/dL (3.7-5.3) L 06/08/18 21:35 Globulin 2.9 gm/dL 06/08/18 21:35 Albumin/Globulin Ratio 1.2 (1.0-1.8) 06/08/18 21:35 Triglycerides 186 mg/dL (<150) H 06/08/18 21:35 Cholesterol 265 mg/dL (<200) H 06/08/18 21:35 LDL Cholesterol Direct 198 mg/dL (75-193) H 06/08/18 21:35 HDL Cholesterol 40 mg/dL (23-92) 06/08/18 21:35 TSH 3.69 uIU/ml (0.34-5.60) 06/08/18 21:35 RPR NONREACTIVE (NONREACTIVE) 06/08/18 21:35 - Physical Exam Vitals and I&O: Vital Signs Temp 0 F 06/09/18 06:41 Pulse 82 06/08/18 23:45 Resp 16 06/08/18 23:45 BP 132/78 06/09/18 02:35 Pulse Ox 98 06/08/18 23:45 Intake & Output 06/10/1818 18 18:59 06:59 18:59 Intake Total 1400 500 Balance 1400 500 Intake: Oral 1400 500 Other: # Voids 3 3 # Bowel Movements 0 0 Active Medications: Current Medications Acetaminophen (Tylenol) 650 mg PO Q6H PRN PRN Reason: Mild Pain/Headache/T above 101 Stop: 08/08/18 13:12 Al Hydrox/Mg Hydrox/Simethicone (Maalox) 30 ml PO Q6H PRN PRN Reason: Dyspepsia Stop: 08/08/18 13:12 Dextromethorphan/Quinidine (Nuedexta 20mg-10mg) 1 cap PO BID [facility] Stop: 08/08/18 08:59 Last Admin: 06/11/18 09:15 Dose: Not Given Divalproex Sodium (Depakote Dr) 250 mg PO BID [facility]; Protocol Stop: 08/08/18 08:59 Last Admin: 06/11/18 09:15 Dose: Not Given Levothyroxine Sodium (Synthroid) 0.05 mg PO QDAC [facility] Stop: 08/08/18 07:29 Last Admin: 06/11/18 06:53 Dose: Not Given Lorazepam (Ativan) 1 mg PO Q6H PRN; Protocol PRN Reason: Anxiety/Agitation Stop: 08/08/18 04:17 Losartan Potassium (Cozaar) 50 mg PO DAILY [facility] Stop: 08/08/18 08:59 Last Admin: 06/11/18 09:12 Dose: Not Given Magnesium Hydroxide (Milk Of Magnesia) 30 ml PO HS PRN PRN Reason: Constipation Stop: 08/08/18 13:12 Risperidone (Risperdal) 1 mg PO DAILY [facility]; Protocol Stop: 08/08/18 08:59 Last Admin: 06/11/18 09:16 Dose: Not Given Zolpidem Tartrate (Ambien) 5 mg PO HS PRN PRN Reason: Insomnia Stop: 08/08/18 04:29 Zolpidem Tartrate (Ambien) 5 mg PO HS PRN PRN Reason: Insomnia Stop: 08/08/18 13:12 General: alert HEENT: NC/AT, PERRLA Lungs: CTAB Cardiovascular: RRR Abdomen: soft, non-tender, non-distended, positive bowel sound - Procedures Procedures: Procedures Procedure Code Date OTHER GROUP THERAPY 94.44 11/06/10 Internal Medicine Assmt/Plan - Assessment Assessment: increase agitation psychosis hypothyroidism htn - Plan Plan: continue with bp meds, fall precautions continue current plan of care
--- NOTE | 2018-06-12 02:04 | Consultation ---
DATE OF CONSULTATION: 06/11/2018 REFERRING PHYSICIAN: Antonino Hawkins MD TYPE OF CONSULTATION: Psychology. HISTORY OF PRESENT ILLNESS: The patient is a 72-year-old female. The patient is a resident of [facility]. The following is by record review and by the patient's self-report. The patient is being admitted due to acute agitation and anger outbursts. Upon interview, the patient states that she does not need to talk to anybody. According to the staff at the patient's facility, the patient was having yelling and screaming episodes and anger outbursts and was unable to be contained or redirected. Therefore, the patient was transferred here for stabilization. PAST MEDICAL HISTORY: Please see history and physical by Dr. Walls. PAST PSYCHIATRIC HISTORY: The patient has a history of schizoaffective disorder. The patient is seen by Dr. Little at [facility]. SUBSTANCE ABUSE HISTORY: None. Unremarkable. PSYCHOSOCIAL HISTORY: The patient did not answer questions about occupational or educational history or baptism affiliation. The patient did not answer questions about physical or sexual abuse history. The patient did not answer question about legal problems. The patient is demanding to be [facility]. MENTAL STATUS EXAMINATION: The patient appears to be her stated age. The patient's attitude is uncooperative. Speech is pressured, loud. Eye contact is poor. Mood is irritable. Affect is constricted. Thought process shows to be confused and is markedly tangential. There is some evidence of paranoid ideation. The patient denied any auditory or visual hallucinations. Apparently, the patient is demonstrating mood fluctuations at the time of this clinical interview. Impulse control is poor. The staff on the unit report the patient is continuing to scream and yell. Concentration is poor. The patient did not participate in the memory assessment. Sensorium is alert and oriented to self and place only. The patient did not participate in interpretation of proverbs. Insight is impaired. Judgment is impaired. DIAGNOSTIC IMPRESSION: AXIS I: History of schizoaffective disorder. AXIS II: Deferred. AXIS III: Per Dr. Walls. TREATMENT PLAN: The patient has been seen by Dr. Hawkins for psychiatric evaluation and for the management of the patient's psychotropic medications. According to the record, the patient is being continued on Depakote and Risperdal. We will provide supportive psychotherapy to include reality orientation, differentiation and integration. We will provide de-escalation and limit setting. We will provide cognitive and behavioral redirection. We will provide motivational enhancement for the patient to become compliant and stay compliant with all aspects of her care and treatment. We will provide coping strategies for phase of life issues as well as for chronic severe mental illness. We will encourage the patient to be able to demonstrate emotional and self-regulation prior to discharge. We will encourage the patient to be able to verbalize her concerns versus acting out verbally and physically. Thank you, Dr. Hawkins, for this consult and the opportunity to participate with you in this patient's care. JOB# [id number] BRYCE
--- NOTE | 2018-06-12 03:10 | Progress Notes ---
DATE: 06/11/2018 PSYCHIATRIC PROGRESS NOTE SUBJECTIVE: Staff was spoken to. The patient is interviewed. Mood is noted to be irritable. Affect is constricted. The patient continues to be paranoid. Insight and judgment are noted to be very much impaired. Impulse control is noted to be limited. The patient has been reluctant to take the medication, but with a lot of persuasion, the patient has been compliant with the medication at this time. ASSESSMENT: The patient is still psychotic and impulsive. PLAN: To continue the patient with the supportive therapy and follow up. JOB# [id number]
[2018-06-12] MEDS: Levothyroxine 0.05 Mg Tab PO SCH (06:41)
[2018-06-12] MEDS: Dextromethorphan/Quinidine 20mg/10mg Cap PO SCH ×2 (08:44→17:29)
[2018-06-12] MEDS: Multivitamin w/ Minerals Tab PO SCH (08:45)
--- NOTE | 2018-06-12 15:10 | Internal Medicine Prog Note ---
Internal Medicine Subjective - Subjective Service Date: 06/12/18 Patient is:: awake Per staff patient has:: tolerating meds Internal Medicine Objective - Results Result Diagrams: 06/08/18 21:35 06/08/18 21:35 Recent Labs: Laboratory Last Values WBC 10.4 Th/cmm (4.8-10.8) 06/08/18 21:35 RBC 4.85 Mil/cmm (3.80-5.20) 06/08/18 21:35 Hgb 13.8 gm/dL (12-16) 06/08/18 21:35 Hct 41.2 % (41.0-60) 06/08/18 21:35 MCV 85.0 fl (81-100) 06/08/18 21:35 MCH 28.5 pg (27.0-31.0) 06/08/18 21:35 MCHC Differential 33.5 pg (28.0-36.0) 06/08/18 21:35 RDW 15.0 % (11.5-20.0) 06/08/18 21:35 Plt Count 220 Th/cmm (150-400) 06/08/18 21:35 MPV 8.2 fl 06/08/18 21:35 Neutrophils % 70.3 % (40.0-80.0) 06/08/18 21:35 Lymphocytes % 15.9 % (20.0-50.0) L 06/08/18 21:35 Monocytes % 9.3 % (2.0-10.0) 06/08/18 21:35 Eosinophils % 4.3 % (0.0-5.0) 06/08/18 21:35 Basophils % 0.2 % (0.0-2.0) 06/08/18 21:35 Sodium 132 mEq/L (136-145) L 06/08/18 21:35 Potassium 4.7 mEq/L (3.5-5.1) 06/08/18 21:35 Chloride 98 mEq/L (98-107) 06/08/18 21:35 Carbon Dioxide 25.2 mEq/L (21.0-31.0) 06/08/18 21:35 Anion Gap 13.5 (7.0-16.0) 06/08/18 21:35 BUN 16 mg/dL (7-25) 06/08/18 21:35 Creatinine 0.7 mg/dL (0.6-1.2) 06/08/18 21:35 Est GFR ( Amer) TNP 06/08/18 21:35 Est GFR (Non-Af Amer) TNP 06/08/18 21:35 BUN/Creatinine Ratio 22.9 06/08/18 21:35 Glucose 86 mg/dL (70-105) 06/08/18 21:35 Hemoglobin A1c % 5.1 % (4.0-6.0) 06/08/18 21:35 Calcium 9.7 mg/dL (8.6-10.3) 06/08/18 21:35 Total Bilirubin 0.5 mg/dL (0.3-1.0) 06/08/18 21:35 AST 13 U/L (13-39) 06/08/18 21:35 ALT 6 U/L (7-52) L 06/08/18 21:35 Alkaline Phosphatase 54 U/L (34-104) 06/08/18 21:35 Total Protein 6.5 gm/dL (6.0-8.3) 06/08/18 21:35 Albumin 3.6 gm/dL (3.7-5.3) L 06/08/18 21:35 Globulin 2.9 gm/dL 06/08/18 21:35 Albumin/Globulin Ratio 1.2 (1.0-1.8) 06/08/18 21:35 Triglycerides 186 mg/dL (<150) H 06/08/18 21:35 Cholesterol 265 mg/dL (<200) H 06/08/18 21:35 LDL Cholesterol Direct 198 mg/dL (75-193) H 06/08/18 21:35 HDL Cholesterol 40 mg/dL (23-92) 06/08/18 21:35 TSH 3.69 uIU/ml (0.34-5.60) 06/08/18 21:35 RPR NONREACTIVE (NONREACTIVE) 06/08/18 21:35 - Physical Exam Vitals and I&O: Vital Signs Temp 97.8 F 06/12/18 06:50 Pulse 89 06/12/18 08:44 Resp 20 06/12/18 06:50 BP 105/58 06/12/18 08:44 Pulse Ox 97 06/12/18 06:50 Active Medications: Current Medications Acetaminophen (Tylenol) 650 mg PO Q6H PRN PRN Reason: Mild Pain/Headache/T above 101 Stop: 08/08/18 13:12 Al Hydrox/Mg Hydrox/Simethicone (Maalox) 30 ml PO Q6H PRN PRN Reason: Dyspepsia Stop: 08/08/18 13:12 Dextromethorphan/Quinidine (Nuedexta 20mg-10mg) 1 cap PO BID JESS Stop: 08/08/18 08:59 Last Admin: 06/12/18 08:44 Dose: 1 cap Divalproex Sodium (Depakote Dr) 250 mg PO BID [facility]; Protocol Stop: 08/08/18 08:59 Last Admin: 06/12/18 08:44 Dose: Not Given Levothyroxine Sodium (Synthroid) 0.05 mg PO QDAC JESS Stop: 08/08/18 07:29 Last Admin: 06/12/18 06:41 Dose: Not Given Lorazepam (Ativan) 1 mg PO Q6H PRN; Protocol PRN Reason: Anxiety/Agitation Stop: 08/08/18 04:17 Last Admin: 06/11/18 20:38 Dose: 1 mg Losartan Potassium (Cozaar) 50 mg PO DAILY JESS Stop: 08/08/18 08:59 Last Admin: 06/12/18 08:44 Dose: Not Given Magnesium Hydroxide (Milk Of Magnesia) 30 ml PO HS PRN PRN Reason: Constipation Stop: 08/08/18 13:12 Risperidone (Risperdal) 1 mg PO DAILY [facility]; Protocol Stop: 08/08/18 08:59 Last Admin: 06/12/18 08:45 Dose: Not Given Zolpidem Tartrate (Ambien) 5 mg PO HS PRN PRN Reason: Insomnia Stop: 08/08/18 04:29 Last Admin: 06/11/18 23:15 Dose: 5 mg Zolpidem Tartrate (Ambien) 5 mg PO HS PRN PRN Reason: Insomnia Stop: 08/08/18 13:12 General: alert HEENT: NC/AT, PERRLA Lungs: CTAB Cardiovascular: RRR Abdomen: soft, non-tender, non-distended, positive bowel sound - Procedures Procedures: Procedures Procedure Code Date OTHER GROUP THERAPY 94.44 11/06/10 Internal Medicine Assmt/Plan - Assessment Assessment: increase agitation psychosis hypothyroidism htn - Plan Plan: continue with bp meds, fall precautions continue current plan of care Nutritional Asmnt/Malnutr-PDOC - Dietary Evaluation Malnutrition Findings (Please click <Entered> for more info): Nutritional Asmnt/Malnutrition Start: 06/11/18 14: 19 Text: Status: Complete Freq: Protocol: Document 06/11/18 14:19 GUILHERME (Rec: 06/11/18 14:31 GUILHERME [email or web address]) Nutritional Asmnt/Malnutrition Patient General Information Nutritional Screening Moderate Risk Diagnosis psychosis Pertinent Medical Hx/Surgical Hx UTI, psychosis, hypothyroidism , HTN Subjective Information Pt seen sleeping in bed at time of visit. Per EMR, PO intake 50-75%. Current Diet Order/ Nutrition Support regular Pertinent Medications synthroid Pertinent Labs 06/08 Na 132, Glucose 86, A1c 5 .1 Nutritional Hx/Data Height 5 ft 8 in Height (Calculated Centimeters) 172.7 Current Weight (lbs) 120 lb Weight (Calculated Kilograms) 54.4 Weight (Calculated Grams) 46857.1 [place] Body Weight 140 Body Mass Index (BMI) 18.2 Weight Status Approriate GI Symptoms GI Symptoms None Last BM 06/08 Difficult in: None Skin Integrity/Comment: intact Current %PO Fair (50-74%) Estimated Nutritional Goals BEE in Kcals: Using Current wt Calories/Kcals/Kg 25-30 Kcals Calculated 8468-4972 Protein: Using Current wt Protein g/k Protein Calculated 56 Fluid: ml 1375-1650ml (1ml/kcal) Nutritional Problem No current Nutrition Prob Problem N/A Malnutrition Alert Is there a minimum of two criteria No selected? Query Text:Check all the applicable criteria. A minimum of two criteria are recommended for diagnosis of either severe or non-severe malnutrition. Malnutrition Related to Morbid Obesity Malnutrition related to morbid obesity No Intervention/Recommendation Comments 1. Continue with regular diet as ordered. 2. Monitor PO intake, wt, labs and skin integrity 3. F/U as low risk in 7 days, 06/18 Expected Outcomes/Goals Expected Outcomes/Goals 1. PO intake to meet at least 75% of nutritional needs. 2. Wt stability, skin to remain intact, labs to approach WNL.
--- NOTE | 2018-06-12 18:21 | Progress Notes ---
DATE: 06/12/2018 SUBJECTIVE: Staff was spoken to. The patient is interviewed. Mood is noted to be irritable. The patient is isolative and withdrawn, does not want to talk to anyone. Coping skills are noted to be poor. Paranoid delusions are noted. The patient has been on Risperdal and Depakote and has been able to tolerate the medication. ASSESSMENT: The patient is still impulsive. PLAN: To continue the patient with the supportive therapy, encouraged the patient to verbalize the concerns rather than to act out. JOB# [id number]
[2018-06-13] MEDS: Levothyroxine 0.05 Mg Tab PO SCH (06:47)
[2018-06-13] MEDS: Dextromethorphan/Quinidine 20mg/10mg Cap PO SCH ×3 (08:33→17:02)
[2018-06-13] MEDS: Multivitamin w/ Minerals Tab PO SCH (08:34)
--- NOTE | 2018-06-13 15:56 | Internal Medicine Prog Note ---
Internal Medicine Subjective - Subjective Service Date: 06/13/18 (refused xray) Patient is:: awake Per staff patient has:: tolerating meds Internal Medicine Objective - Results Result Diagrams: 06/08/18 21:35 06/08/18 21:35 Recent Labs: Laboratory Last Values WBC 10.4 Th/cmm (4.8-10.8) 06/08/18 21:35 RBC 4.85 Mil/cmm (3.80-5.20) 06/08/18 21:35 Hgb 13.8 gm/dL (12-16) 06/08/18 21:35 Hct 41.2 % (41.0-60) 06/08/18 21:35 MCV 85.0 fl (81-100) 06/08/18 21:35 MCH 28.5 pg (27.0-31.0) 06/08/18 21:35 MCHC Differential 33.5 pg (28.0-36.0) 06/08/18 21:35 RDW 15.0 % (11.5-20.0) 06/08/18 21:35 Plt Count 220 Th/cmm (150-400) 06/08/18 21:35 MPV 8.2 fl 06/08/18 21:35 Neutrophils % 70.3 % (40.0-80.0) 06/08/18 21:35 Lymphocytes % 15.9 % (20.0-50.0) L 06/08/18 21:35 Monocytes % 9.3 % (2.0-10.0) 06/08/18 21:35 Eosinophils % 4.3 % (0.0-5.0) 06/08/18 21:35 Basophils % 0.2 % (0.0-2.0) 06/08/18 21:35 Sodium 132 mEq/L (136-145) L 06/08/18 21:35 Potassium 4.7 mEq/L (3.5-5.1) 06/08/18 21:35 Chloride 98 mEq/L (98-107) 06/08/18 21:35 Carbon Dioxide 25.2 mEq/L (21.0-31.0) 06/08/18 21:35 Anion Gap 13.5 (7.0-16.0) 06/08/18 21:35 BUN 16 mg/dL (7-25) 06/08/18 21:35 Creatinine 0.7 mg/dL (0.6-1.2) 06/08/18 21:35 Est GFR ( Amer) TNP 06/08/18 21:35 Est GFR (Non-Af Amer) TNP 06/08/18 21:35 BUN/Creatinine Ratio 22.9 06/08/18 21:35 Glucose 86 mg/dL (70-105) 06/08/18 21:35 Hemoglobin A1c % 5.1 % (4.0-6.0) 06/08/18 21:35 Calcium 9.7 mg/dL (8.6-10.3) 06/08/18 21:35 Total Bilirubin 0.5 mg/dL (0.3-1.0) 06/08/18 21:35 AST 13 U/L (13-39) 06/08/18 21:35 ALT 6 U/L (7-52) L 06/08/18 21:35 Alkaline Phosphatase 54 U/L (34-104) 06/08/18 21:35 Total Protein 6.5 gm/dL (6.0-8.3) 06/08/18 21:35 Albumin 3.6 gm/dL (3.7-5.3) L 06/08/18 21:35 Globulin 2.9 gm/dL 06/08/18 21:35 Albumin/Globulin Ratio 1.2 (1.0-1.8) 06/08/18 21:35 Triglycerides 186 mg/dL (<150) H 06/08/18 21:35 Cholesterol 265 mg/dL (<200) H 06/08/18 21:35 LDL Cholesterol Direct 198 mg/dL (75-193) H 06/08/18 21:35 HDL Cholesterol 40 mg/dL (23-92) 06/08/18 21:35 TSH 3.69 uIU/ml (0.34-5.60) 06/08/18 21:35 RPR NONREACTIVE (NONREACTIVE) 06/08/18 21:35 - Physical Exam Vitals and I&O: Vital Signs Temp 98 F 06/13/18 04:40 Pulse 81 06/13/18 08:33 Resp 18 06/13/18 04:40 BP 109/78 06/13/18 08:33 Pulse Ox 94 06/13/18 04:40 Intake & Output 06/12/18 06/13/18 06/13/18 18:59 06:59 18:59 Intake Total 480 Balance 480 Intake: Oral 480 Other: # Voids 2 Active Medications: Current Medications Acetaminophen (Tylenol) 650 mg PO Q6H PRN PRN Reason: Mild Pain/Headache/T above 101 Stop: 08/08/18 13:12 Al Hydrox/Mg Hydrox/Simethicone (Maalox) 30 ml PO Q6H PRN PRN Reason: Dyspepsia Stop: 08/08/18 13:12 Dextromethorphan/Quinidine (Nuedexta 20mg-10mg) 1 cap PO BID JESS Stop: 08/08/18 08:59 Last Admin: 06/13/18 10:00 Dose: 1 cap Divalproex Sodium (Depakote Dr) 250 mg PO BID JESS; Protocol Stop: 08/08/18 08:59 Last Admin: 06/13/18 08:33 Dose: Not Given Levothyroxine Sodium (Synthroid) 0.05 mg PO QDAC JESS Stop: 08/08/18 07:29 Last Admin: 06/13/18 06:47 Dose: Not Given Lorazepam (Ativan) 1 mg PO Q6H PRN; Protocol PRN Reason: Anxiety/Agitation Stop: 08/08/18 04:17 Last Admin: 06/11/18 20:38 Dose: 1 mg Losartan Potassium (Cozaar) 50 mg PO DAILY JESS Stop: 08/08/18 08:59 Last Admin: 06/13/18 08:33 Dose: Not Given Magnesium Hydroxide (Milk Of Magnesia) 30 ml PO HS PRN PRN Reason: Constipation Stop: 08/08/18 13:12 Risperidone (Risperdal) 1 mg PO DAILY JESS; Protocol Stop: 08/08/18 08:59 Last Admin: 06/13/18 08:35 Dose: Not Given Zolpidem Tartrate (Ambien) 5 mg PO HS PRN PRN Reason: Insomnia Stop: 08/08/18 04:29 Last Admin: 06/11/18 23:15 Dose: 5 mg Zolpidem Tartrate (Ambien) 5 mg PO HS PRN PRN Reason: Insomnia Stop: 08/08/18 13:12 General: alert HEENT: NC/AT, PERRLA Lungs: CTAB Cardiovascular: RRR Abdomen: soft, non-tender, non-distended, positive bowel sound - Procedures Procedures: Procedures Procedure Code Date OTHER GROUP THERAPY 94.44 11/06/10 Internal Medicine Assmt/Plan - Assessment Assessment: increase agitation psychosis hypothyroidism htn - Plan Plan: continue with bp meds, fall precautions continue current plan of care Nutritional Asmnt/Malnutr-PDOC - Dietary Evaluation Malnutrition Findings (Please click <Entered> for more info): Nutritional Asmnt/Malnutrition Start: 06/11/18 14: 19 Text: Status: Complete Freq: Protocol: Document 06/11/18 14:19 LCHENG (Rec: 06/11/18 14:31 LCHENG [email or web address]) Nutritional Asmnt/Malnutrition Patient General Information Nutritional Screening Moderate Risk Diagnosis psychosis Pertinent Medical Hx/Surgical Hx UTI, psychosis, hypothyroidism , HTN Subjective Information Pt seen sleeping in bed at time of visit. Per EMR, PO intake 50-75%. Current Diet Order/ Nutrition Support regular Pertinent Medications synthroid Pertinent Labs 06/08 Na 132, Glucose 86, A1c 5 .1 Nutritional Hx/Data Height 5 ft 8 in Height (Calculated Centimeters) 172.7 Current Weight (lbs) 120 lb Weight (Calculated Kilograms) 54.4 Weight (Calculated Grams) 96879.1 [place] Body Weight 140 Body Mass Index (BMI) 18.2 Weight Status Approriate GI Symptoms GI Symptoms None Last BM 06/08 Difficult in: None Skin Integrity/Comment: intact Current %PO Fair (50-74%) Estimated Nutritional Goals BEE in Kcals: Using Current wt Calories/Kcals/Kg 25-30 Kcals Calculated 9265-0564 Protein: Using Current wt Protein g/k Protein Calculated 56 Fluid: ml 1375-1650ml (1ml/kcal) Nutritional Problem No current Nutrition Prob Problem N/A Malnutrition Alert Is there a minimum of two criteria No selected? Query Text:Check all the applicable criteria. A minimum of two criteria are recommended for diagnosis of either severe or non-severe malnutrition. Malnutrition Related to Morbid Obesity Malnutrition related to morbid obesity No Intervention/Recommendation Comments 1. Continue with regular diet as ordered. 2. Monitor PO intake, wt, labs and skin integrity 3. F/U as low risk in 7 days, 06/18 Expected Outcomes/Goals Expected Outcomes/Goals 1. PO intake to meet at least 75% of nutritional needs. 2. Wt stability, skin to remain intact, labs to approach WNL.
--- NOTE | 2018-06-13 21:14 | Progress Notes ---
DATE: 06/13/2018 PSYCHIATRIC PROGRESS NOTE SUBJECTIVE: Staff was spoken to. The patient is interviewed. Mood is noted to be dysphoric. Coping skills are noted to be poor. The patient has been having difficult time to get up and participate in the groups. The patient is isolative and withdrawn at this time. The patient is encouraged to get out into the groups, but the patient has been very angry. The patient is currently on Risperdal and Depakote and has been able to tolerate the medication. ASSESSMENT: The patient is still psychotic and having mood swings. PLAN: To continue the patient with the supportive therapy and followup. JOB# [id number]
[2018-06-14] MEDS: Levothyroxine 0.05 Mg Tab PO SCH (06:48)
--- NOTE | 2018-06-14 12:20 | Internal Medicine Prog Note ---
Internal Medicine Subjective - Subjective Service Date: 06/14/18 Patient is:: awake Per staff patient has:: tolerating meds Internal Medicine Objective - Results Result Diagrams: 06/08/18 21:35 06/08/18 21:35 Recent Labs: Laboratory Last Values WBC 10.4 Th/cmm (4.8-10.8) 06/08/18 21:35 RBC 4.85 Mil/cmm (3.80-5.20) 06/08/18 21:35 Hgb 13.8 gm/dL (12-16) 06/08/18 21:35 Hct 41.2 % (41.0-60) 06/08/18 21:35 MCV 85.0 fl (81-100) 06/08/18 21:35 MCH 28.5 pg (27.0-31.0) 06/08/18 21:35 MCHC Differential 33.5 pg (28.0-36.0) 06/08/18 21:35 RDW 15.0 % (11.5-20.0) 06/08/18 21:35 Plt Count 220 Th/cmm (150-400) 06/08/18 21:35 MPV 8.2 fl 06/08/18 21:35 Neutrophils % 70.3 % (40.0-80.0) 06/08/18 21:35 Lymphocytes % 15.9 % (20.0-50.0) L 06/08/18 21:35 Monocytes % 9.3 % (2.0-10.0) 06/08/18 21:35 Eosinophils % 4.3 % (0.0-5.0) 06/08/18 21:35 Basophils % 0.2 % (0.0-2.0) 06/08/18 21:35 Sodium 132 mEq/L (136-145) L 06/08/18 21:35 Potassium 4.7 mEq/L (3.5-5.1) 06/08/18 21:35 Chloride 98 mEq/L (98-107) 06/08/18 21:35 Carbon Dioxide 25.2 mEq/L (21.0-31.0) 06/08/18 21:35 Anion Gap 13.5 (7.0-16.0) 06/08/18 21:35 BUN 16 mg/dL (7-25) 06/08/18 21:35 Creatinine 0.7 mg/dL (0.6-1.2) 06/08/18 21:35 Est GFR ( Amer) TNP 06/08/18 21:35 Est GFR (Non-Af Amer) TNP 06/08/18 21:35 BUN/Creatinine Ratio 22.9 06/08/18 21:35 Glucose 86 mg/dL (70-105) 06/08/18 21:35 Hemoglobin A1c % 5.1 % (4.0-6.0) 06/08/18 21:35 Calcium 9.7 mg/dL (8.6-10.3) 06/08/18 21:35 Total Bilirubin 0.5 mg/dL (0.3-1.0) 06/08/18 21:35 AST 13 U/L (13-39) 06/08/18 21:35 ALT 6 U/L (7-52) L 06/08/18 21:35 Alkaline Phosphatase 54 U/L (34-104) 06/08/18 21:35 Total Protein 6.5 gm/dL (6.0-8.3) 06/08/18 21:35 Albumin 3.6 gm/dL (3.7-5.3) L 06/08/18 21:35 Globulin 2.9 gm/dL 06/08/18 21:35 Albumin/Globulin Ratio 1.2 (1.0-1.8) 06/08/18 21:35 Triglycerides 186 mg/dL (<150) H 06/08/18 21:35 Cholesterol 265 mg/dL (<200) H 06/08/18 21:35 LDL Cholesterol Direct 198 mg/dL (75-193) H 06/08/18 21:35 HDL Cholesterol 40 mg/dL (23-92) 06/08/18 21:35 TSH 3.69 uIU/ml (0.34-5.60) 06/08/18 21:35 RPR NONREACTIVE (NONREACTIVE) 06/08/18 21:35 - Physical Exam Vitals and I&O: Vital Signs Temp 97.8 F 06/14/18 04:43 Pulse 72 06/14/18 04:43 Resp 18 06/13/18 04:40 BP 126/70 06/14/18 04:43 Pulse Ox 92 06/14/18 04:43 Intake & Output 06/13/18 06/14/18 06/14/18 18:59 06:59 18:59 Intake Total 1000 240 Balance 1000 240 Intake: Oral 1000 240 Other: # Voids 2 2 # Bowel Movements 0 Active Medications: Current Medications Acetaminophen (Tylenol) 650 mg PO Q6H PRN PRN Reason: Mild Pain/Headache/T above 101 Stop: 08/08/18 13:12 Al Hydrox/Mg Hydrox/Simethicone (Maalox) 30 ml PO Q6H PRN PRN Reason: Dyspepsia Stop: 08/08/18 13:12 Dextromethorphan/Quinidine (Nuedexta 20mg-10mg) 1 cap PO BID JESS Stop: 08/08/18 08:59 Last Admin: 06/13/18 17:02 Dose: 1 cap Divalproex Sodium (Depakote Dr) 250 mg PO BID JESS; Protocol Stop: 08/08/18 08:59 Last Admin: 06/13/18 17:02 Dose: Not Given Levothyroxine Sodium (Synthroid) 0.05 mg PO QDAC JESS Stop: 08/08/18 07:29 Last Admin: 06/14/18 06:48 Dose: Not Given Lorazepam (Ativan) 1 mg PO Q6H PRN; Protocol PRN Reason: Anxiety/Agitation Stop: 08/08/18 04:17 Last Admin: 06/11/18 20:38 Dose: 1 mg Losartan Potassium (Cozaar) 50 mg PO DAILY JESS Stop: 08/08/18 08:59 Last Admin: 06/13/18 08:33 Dose: Not Given Magnesium Hydroxide (Milk Of Magnesia) 30 ml PO HS PRN PRN Reason: Constipation Stop: 08/08/18 13:12 Risperidone (Risperdal) 1 mg PO DAILY JESS; Protocol Stop: 08/08/18 08:59 Last Admin: 06/13/18 08:35 Dose: Not Given Zolpidem Tartrate (Ambien) 5 mg PO HS PRN PRN Reason: Insomnia Stop: 08/08/18 04:29 Last Admin: 06/11/18 23:15 Dose: 5 mg Zolpidem Tartrate (Ambien) 5 mg PO HS PRN PRN Reason: Insomnia Stop: 08/08/18 13:12 General: alert HEENT: NC/AT, PERRLA Lungs: CTAB Cardiovascular: RRR Abdomen: soft, non-tender, non-distended, positive bowel sound - Procedures Procedures: Procedures Procedure Code Date OTHER GROUP THERAPY 94.44 11/06/10 Internal Medicine Assmt/Plan - Assessment Assessment: increase agitation psychosis hypothyroidism htn - Plan Plan: continue with bp meds, fall precautions continue current plan of care Nutritional Asmnt/Malnutr-PDOC - Dietary Evaluation Malnutrition Findings (Please click <Entered> for more info): Nutritional Asmnt/Malnutrition Start: 06/11/18 14: 19 Text: Status: Complete Freq: Protocol: Document 06/11/18 14:19 LCHENG (Rec: 06/11/18 14:31 [email or web address]) Nutritional Asmnt/Malnutrition Patient General Information Nutritional Screening Moderate Risk Diagnosis psychosis Pertinent Medical Hx/Surgical Hx UTI, psychosis, hypothyroidism , HTN Subjective Information Pt seen sleeping in bed at time of visit. Per EMR, PO intake 50-75%. Current Diet Order/ Nutrition Support regular Pertinent Medications synthroid Pertinent Labs 06/08 Na 132, Glucose 86, A1c 5 .1 Nutritional Hx/Data Height 5 ft 8 in Height (Calculated Centimeters) 172.7 Current Weight (lbs) 120 lb Weight (Calculated Kilograms) 54.4 Weight (Calculated Grams) 99543.1 [place] Body Weight 140 Body Mass Index (BMI) 18.2 Weight Status Approriate GI Symptoms GI Symptoms None Last BM 06/08 Difficult in: None Skin Integrity/Comment: intact Current %PO Fair (50-74%) Estimated Nutritional Goals BEE in Kcals: Using Current wt Calories/Kcals/Kg 25-30 Kcals Calculated 9159-5382 Protein: Using Current wt Protein g/k Protein Calculated 56 Fluid: ml 1375-1650ml (1ml/kcal) Nutritional Problem No current Nutrition Prob Problem N/A Malnutrition Alert Is there a minimum of two criteria No selected? Query Text:Check all the applicable criteria. A minimum of two criteria are recommended for diagnosis of either severe or non-severe malnutrition. Malnutrition Related to Morbid Obesity Malnutrition related to morbid obesity No Intervention/Recommendation Comments 1. Continue with regular diet as ordered. 2. Monitor PO intake, wt, labs and skin integrity 3. F/U as low risk in 7 days, 06/18 Expected Outcomes/Goals Expected Outcomes/Goals 1. PO intake to meet at least 75% of nutritional needs. 2. Wt stability, skin to remain intact, labs to approach WNL.
[2018-06-14] MEDS: Dextromethorphan/Quinidine 20mg/10mg Cap PO SCH ×2 (12:44→16:42)
[2018-06-14] MEDS: Multivitamin w/ Minerals Tab PO SCH (12:45)
--- NOTE | 2018-06-14 22:39 | Progress Notes ---
DATE: 06/14/2018 PSYCHIATRIC PROGRESS NOTE SUBJECTIVE: Staff was spoken to. The patient is interviewed. Mood is less irritable. Affect is appropriate. Insight and judgment at this time are noted to be improving. The patient has been able to tolerate the Depakote and Risperdal. No side effects to the medications are noted. ASSESSMENT: The patient is stabilizing. PLAN: To discharge the patient if the placement is available. [facility]# [id number]
[2018-06-15] MEDS: Levothyroxine 0.05 Mg Tab PO SCH (06:42)
[2018-06-15] MEDS: Dextromethorphan/Quinidine 20mg/10mg Cap PO SCH ×2 (09:17→18:10)
[2018-06-15] MEDS: Multivitamin w/ Minerals Tab PO SCH (09:17)
--- NOTE | 2018-06-15 15:12 | Internal Medicine Prog Note ---
Internal Medicine Subjective - Subjective Service Date: 06/15/18 Patient is:: awake Per staff patient has:: tolerating meds Internal Medicine Objective - Results Result Diagrams: 06/08/18 21:35 06/08/18 21:35 Recent Labs: Laboratory Last Values WBC 10.4 Th/cmm (4.8-10.8) 06/08/18 21:35 RBC 4.85 Mil/cmm (3.80-5.20) 06/08/18 21:35 Hgb 13.8 gm/dL (12-16) 06/08/18 21:35 Hct 41.2 % (41.0-60) 06/08/18 21:35 MCV 85.0 fl (81-100) 06/08/18 21:35 MCH 28.5 pg (27.0-31.0) 06/08/18 21:35 MCHC Differential 33.5 pg (28.0-36.0) 06/08/18 21:35 RDW 15.0 % (11.5-20.0) 06/08/18 21:35 Plt Count 220 Th/cmm (150-400) 06/08/18 21:35 MPV 8.2 fl 06/08/18 21:35 Neutrophils % 70.3 % (40.0-80.0) 06/08/18 21:35 Lymphocytes % 15.9 % (20.0-50.0) L 06/08/18 21:35 Monocytes % 9.3 % (2.0-10.0) 06/08/18 21:35 Eosinophils % 4.3 % (0.0-5.0) 06/08/18 21:35 Basophils % 0.2 % (0.0-2.0) 06/08/18 21:35 Sodium 132 mEq/L (136-145) L 06/08/18 21:35 Potassium 4.7 mEq/L (3.5-5.1) 06/08/18 21:35 Chloride 98 mEq/L (98-107) 06/08/18 21:35 Carbon Dioxide 25.2 mEq/L (21.0-31.0) 06/08/18 21:35 Anion Gap 13.5 (7.0-16.0) 06/08/18 21:35 BUN 16 mg/dL (7-25) 06/08/18 21:35 Creatinine 0.7 mg/dL (0.6-1.2) 06/08/18 21:35 Est GFR ( Amer) TNP 06/08/18 21:35 Est GFR (Non-Af Amer) TNP 06/08/18 21:35 BUN/Creatinine Ratio 22.9 06/08/18 21:35 Glucose 86 mg/dL (70-105) 06/08/18 21:35 Hemoglobin A1c % 5.1 % (4.0-6.0) 06/08/18 21:35 Calcium 9.7 mg/dL (8.6-10.3) 06/08/18 21:35 Total Bilirubin 0.5 mg/dL (0.3-1.0) 06/08/18 21:35 AST 13 U/L (13-39) 06/08/18 21:35 ALT 6 U/L (7-52) L 06/08/18 21:35 Alkaline Phosphatase 54 U/L (34-104) 06/08/18 21:35 Total Protein 6.5 gm/dL (6.0-8.3) 06/08/18 21:35 Albumin 3.6 gm/dL (3.7-5.3) L 06/08/18 21:35 Globulin 2.9 gm/dL 06/08/18 21:35 Albumin/Globulin Ratio 1.2 (1.0-1.8) 06/08/18 21:35 Triglycerides 186 mg/dL (<150) H 06/08/18 21:35 Cholesterol 265 mg/dL (<200) H 06/08/18 21:35 LDL Cholesterol Direct 198 mg/dL (75-193) H 06/08/18 21:35 HDL Cholesterol 40 mg/dL (23-92) 06/08/18 21:35 TSH 3.69 uIU/ml (0.34-5.60) 06/08/18 21:35 RPR NONREACTIVE (NONREACTIVE) 06/08/18 21:35 - Physical Exam Vitals and I&O: Vital Signs Temp 98.7 F 06/15/18 05:57 Pulse 81 06/15/18 05:57 Resp 18 06/15/18 05:57 BP 110/70 06/15/18 05:57 Pulse Ox 97 06/15/18 05:57 Active Medications: Current Medications Acetaminophen (Tylenol) 650 mg PO Q6H PRN PRN Reason: Mild Pain/Headache/T above 101 Stop: 08/08/18 13:12 Al Hydrox/Mg Hydrox/Simethicone (Maalox) 30 ml PO Q6H PRN PRN Reason: Dyspepsia Stop: 08/08/18 13:12 Dextromethorphan/Quinidine (Nuedexta 20mg-10mg) 1 cap PO BID JESS Stop: 08/08/18 08:59 Last Admin: 06/15/18 09:17 Dose: Not Given Divalproex Sodium (Depakote Dr) 250 mg PO BID [facility]; Protocol Stop: 08/08/18 08:59 Last Admin: 06/15/18 09:17 Dose: Not Given Levothyroxine Sodium (Synthroid) 0.05 mg PO QDAC JESS Stop: 08/08/18 07:29 Last Admin: 06/15/18 06:42 Dose: Not Given Lorazepam (Ativan) 1 mg PO Q6H PRN; Protocol PRN Reason: Anxiety/Agitation Stop: 08/08/18 04:17 Last Admin: 06/11/18 20:38 Dose: 1 mg Losartan Potassium (Cozaar) 50 mg PO DAILY JESS Stop: 08/08/18 08:59 Last Admin: 06/15/18 09:17 Dose: Not Given Magnesium Hydroxide (Milk Of Magnesia) 30 ml PO HS PRN PRN Reason: Constipation Stop: 08/08/18 13:12 Risperidone (Risperdal) 1 mg PO DAILY [facility]; Protocol Stop: 08/08/18 08:59 Last Admin: 06/15/18 09:17 Dose: Not Given Zolpidem Tartrate (Ambien) 5 mg PO HS PRN PRN Reason: Insomnia Stop: 08/08/18 04:29 Last Admin: 06/11/18 23:15 Dose: 5 mg Zolpidem Tartrate (Ambien) 5 mg PO HS PRN PRN Reason: Insomnia Stop: 08/08/18 13:12 General: alert HEENT: NC/AT, PERRLA Lungs: CTAB Cardiovascular: RRR Abdomen: soft, non-tender, non-distended, positive bowel sound - Procedures Procedures: Procedures Procedure Code Date OTHER GROUP THERAPY 94.44 11/06/10 Internal Medicine Assmt/Plan - Assessment Assessment: increase agitation psychosis hypothyroidism htn - Plan Plan: continue with bp meds, fall precautions continue current plan of care Nutritional Asmnt/Malnutr-PDOC - Dietary Evaluation Malnutrition Findings (Please click <Entered> for more info): Nutritional Asmnt/Malnutrition Start: 06/11/18 14: 19 Text: Status: Complete Freq: Protocol: Document 06/11/18 14:19 GUILHERME (Rec: 06/11/18 14:31 GUILHERME [email or web address]) Nutritional Asmnt/Malnutrition Patient General Information Nutritional Screening Moderate Risk Diagnosis psychosis Pertinent Medical Hx/Surgical Hx UTI, psychosis, hypothyroidism , HTN Subjective Information Pt seen sleeping in bed at time of visit. Per EMR, PO intake 50-75%. Current Diet Order/ Nutrition Support regular Pertinent Medications synthroid Pertinent Labs 06/08 Na 132, Glucose 86, A1c 5 .1 Nutritional Hx/Data Height 5 ft 8 in Height (Calculated Centimeters) 172.7 Current Weight (lbs) 120 lb Weight (Calculated Kilograms) 54.4 Weight (Calculated Grams) 21559.1 [place] Body Weight 140 Body Mass Index (BMI) 18.2 Weight Status Approriate GI Symptoms GI Symptoms None Last BM 06/08 Difficult in: None Skin Integrity/Comment: intact Current %PO Fair (50-74%) Estimated Nutritional Goals BEE in Kcals: Using Current wt Calories/Kcals/Kg 25-30 Kcals Calculated 9351-3318 Protein: Using Current wt Protein g/k Protein Calculated 56 Fluid: ml 1375-1650ml (1ml/kcal) Nutritional Problem No current Nutrition Prob Problem N/A Malnutrition Alert Is there a minimum of two criteria No selected? Query Text:Check all the applicable criteria. A minimum of two criteria are recommended for diagnosis of either severe or non-severe malnutrition. Malnutrition Related to Morbid Obesity Malnutrition related to morbid obesity No Intervention/Recommendation Comments 1. Continue with regular diet as ordered. 2. Monitor PO intake, wt, labs and skin integrity 3. F/U as low risk in 7 days, 06/18 Expected Outcomes/Goals Expected Outcomes/Goals 1. PO intake to meet at least 75% of nutritional needs. 2. Wt stability, skin to remain intact, labs to approach WNL.
--- NOTE | 2018-06-15 17:38 | Progress Notes ---
DATE: 06/15/2018 SUBJECTIVE: Staff was spoken to. The patient is interviewed. Mood is noted to be irritable. The patient is reluctant to comply with the treatment, but agitated behavior has been a major concern. No side effects to the medications are noted. ASSESSMENT: The patient is still paranoid and demented. The patient is a total care patient. PLAN: To continue the patient with the supportive therapy and followup. [facility]# [id number]
[2018-06-16] MEDS: Levothyroxine 0.05 Mg Tab PO SCH (06:41)
[2018-06-16] MEDS: Dextromethorphan/Quinidine 20mg/10mg Cap PO SCH ×2 (09:20→17:20)
[2018-06-16] MEDS: Multivitamin w/ Minerals Tab PO SCH (09:21)
--- NOTE | 2018-06-16 19:02 | Internal Medicine Prog Note ---
Internal Medicine Subjective - Subjective Service Date: 06/16/18 Patient is:: awake Per staff patient has:: tolerating meds Internal Medicine Objective - Results Result Diagrams: 06/08/18 21:35 06/08/18 21:35 Recent Labs: Laboratory Last Values WBC 10.4 Th/cmm (4.8-10.8) 06/08/18 21:35 RBC 4.85 Mil/cmm (3.80-5.20) 06/08/18 21:35 Hgb 13.8 gm/dL (12-16) 06/08/18 21:35 Hct 41.2 % (41.0-60) 06/08/18 21:35 MCV 85.0 fl (81-100) 06/08/18 21:35 MCH 28.5 pg (27.0-31.0) 06/08/18 21:35 MCHC Differential 33.5 pg (28.0-36.0) 06/08/18 21:35 RDW 15.0 % (11.5-20.0) 06/08/18 21:35 Plt Count 220 Th/cmm (150-400) 06/08/18 21:35 MPV 8.2 fl 06/08/18 21:35 Neutrophils % 70.3 % (40.0-80.0) 06/08/18 21:35 Lymphocytes % 15.9 % (20.0-50.0) L 06/08/18 21:35 Monocytes % 9.3 % (2.0-10.0) 06/08/18 21:35 Eosinophils % 4.3 % (0.0-5.0) 06/08/18 21:35 Basophils % 0.2 % (0.0-2.0) 06/08/18 21:35 Sodium 132 mEq/L (136-145) L 06/08/18 21:35 Potassium 4.7 mEq/L (3.5-5.1) 06/08/18 21:35 Chloride 98 mEq/L (98-107) 06/08/18 21:35 Carbon Dioxide 25.2 mEq/L (21.0-31.0) 06/08/18 21:35 Anion Gap 13.5 (7.0-16.0) 06/08/18 21:35 BUN 16 mg/dL (7-25) 06/08/18 21:35 Creatinine 0.7 mg/dL (0.6-1.2) 06/08/18 21:35 Est GFR ( Amer) TNP 06/08/18 21:35 Est GFR (Non-Af Amer) TNP 06/08/18 21:35 BUN/Creatinine Ratio 22.9 06/08/18 21:35 Glucose 86 mg/dL (70-105) 06/08/18 21:35 Hemoglobin A1c % 5.1 % (4.0-6.0) 06/08/18 21:35 Calcium 9.7 mg/dL (8.6-10.3) 06/08/18 21:35 Total Bilirubin 0.5 mg/dL (0.3-1.0) 06/08/18 21:35 AST 13 U/L (13-39) 06/08/18 21:35 ALT 6 U/L (7-52) L 06/08/18 21:35 Alkaline Phosphatase 54 U/L (34-104) 06/08/18 21:35 Total Protein 6.5 gm/dL (6.0-8.3) 06/08/18 21:35 Albumin 3.6 gm/dL (3.7-5.3) L 06/08/18 21:35 Globulin 2.9 gm/dL 06/08/18 21:35 Albumin/Globulin Ratio 1.2 (1.0-1.8) 06/08/18 21:35 Triglycerides 186 mg/dL (<150) H 06/08/18 21:35 Cholesterol 265 mg/dL (<200) H 06/08/18 21:35 LDL Cholesterol Direct 198 mg/dL (75-193) H 06/08/18 21:35 HDL Cholesterol 40 mg/dL (23-92) 06/08/18 21:35 TSH 3.69 uIU/ml (0.34-5.60) 06/08/18 21:35 RPR NONREACTIVE (NONREACTIVE) 06/08/18 21:35 - Physical Exam Vitals and I&O: Vital Signs Temp 97.7 F 06/15/18 16:01 Pulse 71 06/15/18 16:01 Resp 22 06/15/18 16:01 BP 126/56 06/15/18 16:01 Pulse Ox 96 06/15/18 16:01 Intake & Output 06/16/18 06/16/18 06/17/18 06:59 18:59 06:59 Output Total 0 Balance 0 Output: Stool 0 Other: # Voids 4 Active Medications: Current Medications Acetaminophen (Tylenol) 650 mg PO Q6H PRN PRN Reason: Mild Pain/Headache/T above 101 Stop: 08/08/18 13:12 Al Hydrox/Mg Hydrox/Simethicone (Maalox) 30 ml PO Q6H PRN PRN Reason: Dyspepsia Stop: 08/08/18 13:12 Dextromethorphan/Quinidine (Nuedexta 20mg-10mg) 1 cap PO BID JESS Stop: 08/08/18 08:59 Last Admin: 06/16/18 17:20 Dose: Not Given Divalproex Sodium (Depakote Dr) 250 mg PO BID [facility]; Protocol Stop: 08/08/18 08:59 Last Admin: 06/16/18 17:20 Dose: Not Given Levothyroxine Sodium (Synthroid) 0.05 mg PO QDAC JESS Stop: 08/08/18 07:29 Last Admin: 06/16/18 06:41 Dose: Not Given Lorazepam (Ativan) 1 mg PO Q6H PRN; Protocol PRN Reason: Anxiety/Agitation Stop: 08/08/18 04:17 Last Admin: 06/11/18 20:38 Dose: 1 mg Losartan Potassium (Cozaar) 50 mg PO DAILY JESS Stop: 08/08/18 08:59 Last Admin: 06/16/18 09:20 Dose: Not Given Magnesium Hydroxide (Milk Of Magnesia) 30 ml PO HS PRN PRN Reason: Constipation Stop: 08/08/18 13:12 Risperidone (Risperdal) 1 mg PO DAILY [facility]; Protocol Stop: 08/08/18 08:59 Last Admin: 06/16/18 09:21 Dose: Not Given Zolpidem Tartrate (Ambien) 5 mg PO HS PRN PRN Reason: Insomnia Stop: 08/08/18 04:29 Last Admin: 06/11/18 23:15 Dose: 5 mg Zolpidem Tartrate (Ambien) 5 mg PO HS PRN PRN Reason: Insomnia Stop: 08/08/18 13:12 General: alert HEENT: NC/AT, PERRLA Lungs: CTAB Cardiovascular: RRR Abdomen: soft, non-tender, non-distended, positive bowel sound - Procedures Procedures: Procedures Procedure Code Date OTHER GROUP THERAPY 94.44 11/06/10 Internal Medicine Assmt/Plan - Assessment Assessment: increase agitation psychosis hypothyroidism htn - Plan Plan: continue with bp meds, fall precautions continue current plan of care Nutritional Asmnt/Malnutr-PDOC - Dietary Evaluation Malnutrition Findings (Please click <Entered> for more info): Nutritional Asmnt/Malnutrition Start: 06/11/18 14: 19 Text: Status: Complete Freq: Protocol: Document 06/11/18 14:19 LCHENG (Rec: 06/11/18 14:31 LCHENG [email or web address]) Nutritional Asmnt/Malnutrition Patient General Information Nutritional Screening Moderate Risk Diagnosis psychosis Pertinent Medical Hx/Surgical Hx UTI, psychosis, hypothyroidism , HTN Subjective Information Pt seen sleeping in bed at time of visit. Per EMR, PO intake 50-75%. Current Diet Order/ Nutrition Support regular Pertinent Medications synthroid Pertinent Labs 06/08 Na 132, Glucose 86, A1c 5 .1 Nutritional Hx/Data Height 5 ft 8 in Height (Calculated Centimeters) 172.7 Current Weight (lbs) 120 lb Weight (Calculated Kilograms) 54.4 Weight (Calculated Grams) 25288.1 [place] Body Weight 140 Body Mass Index (BMI) 18.2 Weight Status Approriate GI Symptoms GI Symptoms None Last BM 06/08 Difficult in: None Skin Integrity/Comment: intact Current %PO Fair (50-74%) Estimated Nutritional Goals BEE in Kcals: Using Current wt Calories/Kcals/Kg 25-30 Kcals Calculated 9901-4242 Protein: Using Current wt Protein g/k Protein Calculated 56 Fluid: ml 1375-1650ml (1ml/kcal) Nutritional Problem No current Nutrition Prob Problem N/A Malnutrition Alert Is there a minimum of two criteria No selected? Query Text:Check all the applicable criteria. A minimum of two criteria are recommended for diagnosis of either severe or non-severe malnutrition. Malnutrition Related to Morbid Obesity Malnutrition related to morbid obesity No Intervention/Recommendation Comments 1. Continue with regular diet as ordered. 2. Monitor PO intake, wt, labs and skin integrity 3. F/U as low risk in 7 days, 06/18 Expected Outcomes/Goals Expected Outcomes/Goals 1. PO intake to meet at least 75% of nutritional needs. 2. Wt stability, skin to remain intact, labs to approach WNL.
--- NOTE | 2018-06-16 22:39 | Progress Notes ---
DATE: 06/16/2018 SUBJECTIVE: Staff was spoken to. The patient is interviewed. Mood is noted to be irritable. Affect is constricted. The patient is very reluctant to comply with the treatment. The patient needs to be encouraged to take the medication. The patient has been very reluctant. The patient is isolative and withdrawn. Coping skills are noted to be poor. No side effects of the Risperdal are noted. ASSESSMENT: The patient is still psychotic and impulsive. PLAN: To continue the patient with the current medications and follow up with the supportive therapy. JOB# [id number]
[2018-06-17] MEDS: Levothyroxine 0.05 Mg Tab PO SCH (06:43)
[2018-06-17] MEDS: Dextromethorphan/Quinidine 20mg/10mg Cap PO SCH (09:48)
[2018-06-17] MEDS: Multivitamin w/ Minerals Tab PO SCH (09:49)
--- NOTE | 2018-06-17 13:27 | Internal Medicine Prog Note ---
Internal Medicine Subjective - Subjective Service Date: 06/17/18 Patient is:: awake Per staff patient has:: tolerating meds Internal Medicine Objective - Results Result Diagrams: 06/08/18 21:35 06/08/18 21:35 Recent Labs: Laboratory Last Values WBC 10.4 Th/cmm (4.8-10.8) 06/08/18 21:35 RBC 4.85 Mil/cmm (3.80-5.20) 06/08/18 21:35 Hgb 13.8 gm/dL (12-16) 06/08/18 21:35 Hct 41.2 % (41.0-60) 06/08/18 21:35 MCV 85.0 fl (81-100) 06/08/18 21:35 MCH 28.5 pg (27.0-31.0) 06/08/18 21:35 MCHC Differential 33.5 pg (28.0-36.0) 06/08/18 21:35 RDW 15.0 % (11.5-20.0) 06/08/18 21:35 Plt Count 220 Th/cmm (150-400) 06/08/18 21:35 MPV 8.2 fl 06/08/18 21:35 Neutrophils % 70.3 % (40.0-80.0) 06/08/18 21:35 Lymphocytes % 15.9 % (20.0-50.0) L 06/08/18 21:35 Monocytes % 9.3 % (2.0-10.0) 06/08/18 21:35 Eosinophils % 4.3 % (0.0-5.0) 06/08/18 21:35 Basophils % 0.2 % (0.0-2.0) 06/08/18 21:35 Sodium 132 mEq/L (136-145) L 06/08/18 21:35 Potassium 4.7 mEq/L (3.5-5.1) 06/08/18 21:35 Chloride 98 mEq/L (98-107) 06/08/18 21:35 Carbon Dioxide 25.2 mEq/L (21.0-31.0) 06/08/18 21:35 Anion Gap 13.5 (7.0-16.0) 06/08/18 21:35 BUN 16 mg/dL (7-25) 06/08/18 21:35 Creatinine 0.7 mg/dL (0.6-1.2) 06/08/18 21:35 Est GFR ( Amer) TNP 06/08/18 21:35 Est GFR (Non-Af Amer) TNP 06/08/18 21:35 BUN/Creatinine Ratio 22.9 06/08/18 21:35 Glucose 86 mg/dL (70-105) 06/08/18 21:35 Hemoglobin A1c % 5.1 % (4.0-6.0) 06/08/18 21:35 Calcium 9.7 mg/dL (8.6-10.3) 06/08/18 21:35 Total Bilirubin 0.5 mg/dL (0.3-1.0) 06/08/18 21:35 AST 13 U/L (13-39) 06/08/18 21:35 ALT 6 U/L (7-52) L 06/08/18 21:35 Alkaline Phosphatase 54 U/L (34-104) 06/08/18 21:35 Total Protein 6.5 gm/dL (6.0-8.3) 06/08/18 21:35 Albumin 3.6 gm/dL (3.7-5.3) L 06/08/18 21:35 Globulin 2.9 gm/dL 06/08/18 21:35 Albumin/Globulin Ratio 1.2 (1.0-1.8) 06/08/18 21:35 Triglycerides 186 mg/dL (<150) H 06/08/18 21:35 Cholesterol 265 mg/dL (<200) H 06/08/18 21:35 LDL Cholesterol Direct 198 mg/dL (75-193) H 06/08/18 21:35 HDL Cholesterol 40 mg/dL (23-92) 06/08/18 21:35 TSH 3.69 uIU/ml (0.34-5.60) 06/08/18 21:35 RPR NONREACTIVE (NONREACTIVE) 06/08/18 21:35 - Physical Exam Vitals and I&O: Vital Signs Temp 98.1 F 06/16/18 20:00 Pulse 91 06/16/18 20:00 Resp 19 06/16/18 20:00 BP 127/88 06/16/18 20:00 Pulse Ox 100 06/16/18 20:00 Intake & Output 06/16/18 06/17/18 06/17/18 18:59 06:59 18:59 Intake Total 60 Output Total 0 Balance 0 60 Intake: Oral 60 Output: Stool 0 Other: # Voids 4 1 Active Medications: Current Medications Acetaminophen (Tylenol) 650 mg PO Q6H PRN PRN Reason: Mild Pain/Headache/T above 101 Stop: 08/08/18 13:12 Al Hydrox/Mg Hydrox/Simethicone (Maalox) 30 ml PO Q6H PRN PRN Reason: Dyspepsia Stop: 08/08/18 13:12 Dextromethorphan/Quinidine (Nuedexta 20mg-10mg) 1 cap PO BID JESS Stop: 08/08/18 08:59 Last Admin: 06/17/18 09:48 Dose: Not Given Divalproex Sodium (Depakote Dr) 250 mg PO BID JESS; Protocol Stop: 08/08/18 08:59 Last Admin: 06/17/18 09:48 Dose: Not Given Levothyroxine Sodium (Synthroid) 0.05 mg PO QDAC JESS Stop: 08/08/18 07:29 Last Admin: 06/17/18 06:43 Dose: Not Given Lorazepam (Ativan) 1 mg PO Q6H PRN; Protocol PRN Reason: Anxiety/Agitation Stop: 08/08/18 04:17 Last Admin: 06/11/18 20:38 Dose: 1 mg Losartan Potassium (Cozaar) 50 mg PO DAILY JESS Stop: 08/08/18 08:59 Last Admin: 06/17/18 09:49 Dose: Not Given Magnesium Hydroxide (Milk Of Magnesia) 30 ml PO HS PRN PRN Reason: Constipation Stop: 08/08/18 13:12 Risperidone (Risperdal) 1 mg PO DAILY JESS; Protocol Stop: 08/08/18 08:59 Last Admin: 06/17/18 09:49 Dose: Not Given Zolpidem Tartrate (Ambien) 5 mg PO HS PRN PRN Reason: Insomnia Stop: 08/08/18 04:29 Last Admin: 06/11/18 23:15 Dose: 5 mg Zolpidem Tartrate (Ambien) 5 mg PO HS PRN PRN Reason: Insomnia Stop: 09/09/18 13:12 General: alert HEENT: NC/AT, PERRLA Lungs: CTAB Cardiovascular: RRR Abdomen: soft, non-tender, non-distended, positive bowel sound - Procedures Procedures: Procedures Procedure Code Date OTHER GROUP THERAPY 94.44 11/06/10 Internal Medicine Assmt/Plan - Assessment Assessment: increase agitation psychosis hypothyroidism htn - Plan Plan: continue with bp meds, fall precautions continue current plan of care Nutritional Asmnt/Malnutr-PDOC - Dietary Evaluation Malnutrition Findings (Please click <Entered> for more info): Nutritional Asmnt/Malnutrition Start: 06/11/18 14: 19 Text: Status: Complete Freq: Protocol: Document 06/11/18 14:19 LCHENG (Rec: 06/11/18 14:31 [email or web address]) Nutritional Asmnt/Malnutrition Patient General Information Nutritional Screening Moderate Risk Diagnosis psychosis Pertinent Medical Hx/Surgical Hx UTI, psychosis, hypothyroidism , HTN Subjective Information Pt seen sleeping in bed at time of visit. Per EMR, PO intake 50-75%. Current Diet Order/ Nutrition Support regular Pertinent Medications synthroid Pertinent Labs 06/08 Na 132, Glucose 86, A1c 5 .1 Nutritional Hx/Data Height 5 ft 8 in Height (Calculated Centimeters) 172.7 Current Weight (lbs) 120 lb Weight (Calculated Kilograms) 54.4 Weight (Calculated Grams) 46167.1 [place] Body Weight 140 Body Mass Index (BMI) 18.2 Weight Status Approriate GI Symptoms GI Symptoms None Last BM 06/08 Difficult in: None Skin Integrity/Comment: intact Current %PO Fair (50-74%) Estimated Nutritional Goals BEE in Kcals: Using Current wt Calories/Kcals/Kg 25-30 Kcals Calculated 6204-1319 Protein: Using Current wt Protein g/k Protein Calculated 56 Fluid: ml 1375-1650ml (1ml/kcal) Nutritional Problem No current Nutrition Prob Problem N/A Malnutrition Alert Is there a minimum of two criteria No selected? Query Text:Check all the applicable criteria. A minimum of two criteria are recommended for diagnosis of either severe or non-severe malnutrition. Malnutrition Related to Morbid Obesity Malnutrition related to morbid obesity No Intervention/Recommendation Comments 1. Continue with regular diet as ordered. 2. Monitor PO intake, wt, labs and skin integrity 3. F/U as low risk in 7 days, 06/18 Expected Outcomes/Goals Expected Outcomes/Goals 1. PO intake to meet at least 75% of nutritional needs. 2. Wt stability, skin to remain intact, labs to approach WNL.
--- NOTE | 2018-06-17 21:21 | Progress Notes ---
DATE: 06/17/2018 SUBJECTIVE: Staff was spoken to. The patient is interviewed. Mood is noted to be less irritable. Affect is appropriate. The patient, however, has been having difficult time to cope with the stress. No side effects to the medications are noted. The patient has been not becoming a major behavioral problem, but the patient has been reluctant to comply with the psychotropic medication. PLAN: Since the patient is not presenting with any major behavioral problems, it is decided to see if we can discharge the patient today. JOB# [id number]
== END 2018-06-17 16:00 | DRG 885 ==
LOC: ER 18:22 → GERO2 22:45
DX: F25.9 Schizoaffective disorder, unspecified (principal); I10 Essential (primary) hypertension; J44.9 Chronic obstructive pulmonary disease, unspecified; E78.5 Hyperlipidemia, unspecified; M19.90 Unspecified osteoarthritis, unspecified site; E03.9 Hypothyroidism, unspecified; F03.90 Unspecified dementia, unspecified severity, without behavioral disturbance, psychotic disturbance, mood disturbance, and anxiety; Z88.0 Allergy status to penicillin; Z88.8 Allergy status to other drugs, medicaments and biological substances
CPT/HCPCS: 36415-UA; 80053-TC; 80061-TC; 83036-90; 84443-TC; 85025-TC; 86592-TC; J1200; J1630